=== PATIENT | male | born 1970 | race Caucasian/White ===

== ENCOUNTER 2019-08-27 12:54 | Outpatient (CLI) | payer OTHER, SELFPAY ==
--- NOTE | ~2019-08-27 | XR_ITS ---
EXAMINATION: XR chest 2V DATE: 08/27/2019 13:16 INDICATION: Chest wall pain TECHNIQUE: Frontal and lateral views of the chest are obtained COMPARISON: None available FINDINGS: The lungs are free of acute opacities. There is no pleural effusion or pneumothorax. The ca rdiomediastinal silhouette is normal. There is mild thoracic spondylosis. A BB is seen in the anterio r soft tissues projecting over the right upper quadrant. IMPRESSION: 1. No acute cardiopulmonary abnormality. Reviewed, dictated and finalized at location A.
== END 2019-08-27 12:55 | disposition home or self-care (01) ==
LOC: ANHIMG 13:04
PROVIDERS: PCP Internal Medicine; Visit Provider Internal Medicine
DX: R07.89 Other chest pain (principal)
CPT/HCPCS: 71046

== ENCOUNTER 2019-10-24 08:33 | Emergency (ER) | payer OTHER, SELFPAY ==
[2019-10-24] VITALS (20 sets, daily range): BP systolic 151–214; BP diastolic 90–107; PULSE 63; RESP 18; TEMP 36.4; O2SAT 93–99
--- NOTE | ~2019-10-24 | XR_ITS ---
XR chest 1V portable 10/24/2019 09:27 Indication: Shortness of breath and cough Procedure: AP portable chest Comparison: 08/27/2019 Findings: Heart size normal. Interval development of mild interstitial prominence with peribronchial wall thickening. No pleural effusion or pneumothorax. No acute osseous abnormality. Impression: 1: Mild bilateral perihilar interstitial prominence with peribronchial wall thickening. Differential diagnosis includes pulmonary vascular congestion and atypical pneumonia. Reviewed, dictated and finalized at location A. Impression: 1: Mild bilateral perihilar interstitial prominence with peribronchial wall thi ckening. Differential diagnosis includes pulmonary vascular congestion and atyp ical pneumonia.
--- NOTE | 2019-10-24 08:52 | ECG_ITS ---
Measurements Intervals [place] Rate: 60 P: 22 [place]: 140 QRS: 24 QRSD: 84 T: 78 QT: 394 QTc: 394 Interpretive Statements SINUS RHYTHM BORDERLINE ST-T WAVE ABNORMALITY- HIGH LATERAL LEADS BORDERLINE ECG Electronically Signed On 10-24-2019 9:25:48 CDT by Franco Stovall D.O.
--- NOTE | 2019-10-24 08:53 | ED.GENADULT ---
HPI - General Adult General Chief complaint: Shortness of Breath/Dyspnea Stated complaint: difficulty breathing when laying down Time Seen by Provider: 10/24/19 08:47 History of Present Illness HPI narrative: Patient is a 48 y/o male complaining of mild SOB since last night. He states that SOB is worsened by laying down. It becomes more severe when he lays down. He denies any leg swelling, chest pain or fever. He has chronic cough which he attributed to smoking. Related Data Allergies Allergy/AdvReac Type Severity Reaction Status Date / Time ampicillin Allergy Unknown Unknown Verified 10/24/19 08:44 Penicillins Allergy Unknown Unknown Verified 10/24/19 08:44 Review of Systems Constitutional: Constitutional: Denies chills, Denies fever(s), Denies headache(s) and Denies weakness Eyes: Eyes: Denies blurry vision ENT: Denies headache(s) and Denies neck pain Cardiovascular: Cardiovascular: Denies chest pain and Denies dyspnea Respiratory: Respiratory: Reports cough and Reports dyspnea Gastrointestinal: Gastrointestinal: Denies abdominal pain, Denies diarrhea, Denies nausea and Denies vomiting Genitourinary: Genitourinary: Denies hematuria and Denies dysuria Musculoskeletal: Musculoskeletal: Denies back pain and Denies neck pain Neurologic: Denies headache(s) and Denies weakness [facility] Family History Family History Father Family history of thyroid disease Mother Family history of diabetes mellitus in first degree relative Social History Social History Alcohol intake: current Gender identity (if verbalized by the patient): Male Exam Const: General: no acute distress and well developed Orientation/consciousness: oriented to person, oriented to place, oriented to time and patient oriented x3 HENMT: Head: normocephalic Ears: external ears normal General nose exam: Normal external nose present Eyes: General: appearance normal, both eyes and all related structures Conjunctivae: conjunctivae normal Neck: Neck: normal visual inspection and full ROM Chest: Chest palpation & inspection: normal inspection of the chest and no tenderness Resp: Effort & Inspection: normal respiratory effort Auscultation: clear to auscultation bilaterally Cardio: Rate: regular rate Rhythm: regular rhythm GI: GI Palp: No abdominal tenderness and Yes Soft to palpation Skin: General skin exam: normal color and turgor normal Neuro: General: oriented to person, oriented to place, oriented to time and patient oriented x3 Cognition (Neuro): normal cognition Extrem: General: normal to inspection, full ROM and no pedal edema Psych: Appearance: grossly normal Mental Status: mental status grossly normal Affect: normal affect Course Vital Signs Vital signs: Vital Signs Temperature 36.4 C 10/24/19 08:44 Pulse Rate 63 10/24/19 08:44 Respiratory Rate 18 10/24/19 08:44 Blood Pressure 193/107 H 10/24/19 08:44 Pulse Oximetry 98 10/24/19 08:44 Temperature 36.4 C 10/24/19 08:44 Pulse Rate 63 10/24/19 08:44 Respiratory Rate 18 10/24/19 08:44 Blood Pressure 173/100 H 10/24/19 11:31 Pulse Oximetry 98 10/24/19 11:32 Medical Decision Making Vital Signs Vital Signs: Vital Signs Temperature 36.4 C 10/24/19 08:44 Pulse Rate 63 10/24/19 08:44 Respiratory Rate 18 10/24/19 08:44 Blood Pressure 193/107 H 10/24/19 08:44 Pulse Oximetry 98 10/24/19 08:44 Temperature 36.4 C 10/24/19 08:44 Pulse Rate 63 10/24/19 08:44 Respiratory Rate 18 10/24/19 08:44 Blood Pressure 173/100 H 10/24/19 11:31 Pulse Oximetry 98 10/24/19 11:32 Lab Data Result diagrams: 10/24/19 09:01 10/24/19 09:01 Labs: Lab Results 10/24/19 10/24/19 10/24/19 Range/Units 09:01 09:01 09:01 WBC 9.5 (4.5-10.0) K/mm3 RBC 5.28 (4.6-6.20) M/mm3 Hgb 16.7 (14
[2019-10-24 09:07] LABS: Basophils Absolute Auto 0.1 K/mm3 (0.0-0.1); Basophils Percent Auto 0.5 % (0.2-1.2); Eosinophils Absolute Auto 0.3 K/mm3 (0-0.3); Eosinophils Percent Auto 2.6 % (0-4.4); Hematocrit 47.9 % (42.0-52.0); Hemoglobin 16.7 g/dL (14.0-18.0); Immature Granulocyte Absolute 0.03 K/mm3 (0.00-0.031); Immature Granulocyte Percent A 0.3 % (0-0.5); Lymphocytes Percent Auto 25.2 % (18.3-44.2); Mean Corpuscular HGB Conc 34.9 g/dl (32-36); Mean Corpuscular Hemoglobin 31.6 pg (26-34); Mean Corpuscular Volume 90.7 fl (80-100); Mean Platelet Volume 9.5 fl (7.4-10.4); Monocytes Absolute Auto 0.7 K/mm3 (0.1-0.6); Monocytes Percent Auto 7.6 % (2.6-8.5); Neutrophils Absolute Auto 6.1 K/mm3 (1.3-6.7); Neutrophils Percent Auto 63.8 % (45.5-73.1); Platelet Count Result 259 k/mm3 (150-375); Red Blood Count 5.28 M/mm3 (4.6-6.20); Red Cell Distribution Width 11.9 % (11.5-14.5); White Blood Count 9.5 K/mm3 (4.5-10.0)
[2019-10-24 09:23] LABS: D Dimer 0.27 ug/mL (<0.48)
[2019-10-24 09:29] LABS: Alanine Aminotransferase 44 U/L (4-50); Albumin Level 4.6 g/dL (3.5-5.1); Alkaline Phosphatase 68 U/L (38-126); Aspartate Amino Transferase 30 U/L (17-59); Bilirubin,Total 0.4 mg/dL (0.2-1.3); Blood Urea Nitrogen 14 mg/dL (9-20); Calcium 9.1 mg/dL (8.4-10.2); Carbon Dioxide 28 mmol/L (22-30); Chloride 104 mmol/L (98-107); Estimated CRCL calculation 91 ml/min; Estimated Glomerular Filt Rate > 60; Glucose 166 mg/dL (75-110); Potassium 4.3 mmol/L (3.4-5.0); Sodium 138 mmol/L (137-145)
[2019-10-24 09:41] LABS: NT Pro B Type Natriuretic Pept 55 PG/ML (5-100); Troponin I < 0.012 ng/mL (0.000-0.034)
[2019-10-24 12:59] LABS: Troponin I < 0.012 ng/mL (0.000-0.034)
[2019-10-25 11:01] LABS: SARS-CoV-2 RNA PCR Negative
== END 2019-10-24 13:32 | disposition home or self-care (01) ==
PROVIDERS: Emergency Provider Emergency Medicine; PCP Internal Medicine
DX: J18.9 Pneumonia, unspecified organism (principal); Z20.828 Contact with and (suspected) exposure to other viral communicable diseases; I10 Essential (primary) hypertension; R94.31 Abnormal electrocardiogram [ECG] [EKG]
CPT/HCPCS: 36415; 71045; 80053; 83880; 84484; 85025; 85380; 87635; 93005; 99284; C9803; U0003

== ENCOUNTER 2019-12-02 07:48 | Outpatient (CLI) | payer OTHER, SELFPAY ==
--- NOTE | 2019-12-06 00:07 | WPDPFTINT ---
PFT Interpretation PFT Interpretation: DOS: 12/02/2019 REQUESTING: Dr. Mcdaniel REASON FOR TESTING: shortness of breath PULMONARY FUNCTION TESTS Results are reproducible and reliable. Spirometry: FEV1 75%, mildly decreased. FVC 77%, mildly decreased. FEV1% is normal. No change with bronchodilator. Lung volumes: TLC 106%, normal. RV 153% consistent with moderate air trapping. Airway resistance increased 240%. Diffusion: DLCO 92%, normal. Flow volume loop: Flattening of the inspiratory limb, may represent a variable extrathoracic obstruction. IMPRESSION: Mild ventilatory impairment, moderate air trapping which is seen in obstructive conditions, and an abnormal inspiratory limb which may suggest a variable extrathoracic obstruction. If clinically indicated consider neck CT to further evaluate the abnormal flow volume loop with shortness of breath. . Katie Paige MD
== END 2019-12-02 07:49 | disposition home or self-care (01) ==
LOC: ANHPFT 07:49
PROVIDERS: PCP Internal Medicine; Visit Provider Internal Medicine
DX: R06.00 Dyspnea, unspecified (principal); R94.2 Abnormal results of pulmonary function studies
CPT/HCPCS: 94060; 94726; 94729

== ENCOUNTER 2023-05-06 14:02 | Inpatient (IN) | payer OTHER, SELFPAY ==
--- NOTE | ~2023-05-06 | XR_ITS ---
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 RESULT: Lines, tubes, and devices: Stable spherical radiopacity projecting over the right upper quadrant. Lungs and pleura: Diffuse mild reticulonodular opacities with mild cuffing. No focal consolidation, pleural effusion, or pneumothorax. Cardiomediastinal silhouette: Stable. Other: No acute osseous or upper abdominal finding. IMPRESSION: Pulmonary opacities may represent bronchiolitis, as can be seen with atypical infection, asthma, aspi ration, and small airways disease. Reviewed, dictated and finalized at location K. SAMPLER IMPRESSION: Pulmonary opacities may represent bronchiolitis, as can be seen with atypical i nfection, asthma, aspiration, and small airways disease.
--- NOTE | ~2023-05-06 | CT_ITS ---
EXAMINATION: CT brain wo con DATE: 05/06/2023 19:06 INDICATION: AMS, headache . TECHNIQUE: Computed tomography (CT) of the head was performed without intravenous contrast. The mA wa s adjusted according to patient size. Iterative reconstruction technique was employed. The dose-lengt h product was 605.33 mGy-cm. COMPARISON: None. FINDINGS: No acute intracranial hemorrhage or extra-axial fluid collection. No hydrocephalus, mass, or herniation. No acute ischemic infarct. Unremarkable dural venous sinus attenuation. No acute osseous abnormality. The aerated spaces are clear. Atherosclerotic intracranial calcification IMPRESSION: No acute intracranial process. Reviewed, dictated and finalized at location K. MOUNTER
[2023-05-06 14:17] VITALS: BP 177/98; PULSE 86; RESP 16; TEMP 36.7; O2SAT 98
--- NOTE | 2023-05-06 18:54 | ECG_ITS ---
Measurements Intervals [place] Rate: 69 P: 31 [place]: 146 QRS: 46 QRSD: 84 T: 60 QT: 392 QTc: 420 Interpretive Statements SINUS RHYTHM BASELINE ARTIFACT- I, III, AVL, AVF NORMAL ECG COMPARED TO ECG 10/24/2019 09:15:14 NO SIGNIFICANT CHANGES Electronically Signed On 05-07-2023 7:41:33 STILL OPERATOR GIN by Franco Stovall D.O.
--- NOTE | 2023-05-06 19:05 | ED.AMS ---
HPI - Altered Mental Status General Chief Complaint: Altered Mental Status <Josefa Liang PA-C - Last Filed: 05/07/23 02:16> Stated Complaint: altered mental status/vomiting <Josefa Liang PA-C - Last Filed: 05/07/23 02:16> Time Seen by Provider: 05/06/23 18:43 <Josefa Liang PA-C - Last Filed: 05/07/23 02:16> History of Present Illness HPI narrative: 52-year-old male reports with his at bedside for evaluation of altered mental status. patient's provides the following history. States that she was in lit living room at 3:00 a.m. this morning when the patient woke up walked to the living room. States he was slurring his words and walking with a staggering trunk like gait and appeared clammy and diaphoretic. She states she was concerned that he was hypoglycemic and gave him orange juice and put him back to bed. States she checked on him and he seems normal. The few hours later, she will house and advised her son to watch the patient. She states that the patient's son called her immediately and states that the patient was in the bathroom vomiting which prompted her to come home And bring the patient to the ED. she also states that he has been more confused throughout the day. States that the patient thought that today was Friday and was forgetting why he was to the emergency department and round. The patient's only stated complaint is that he feels unwell and has a headache. He states the headache started in the back of his head and has slowly come to the front of his head this was associated neck pain And shoulder pain. He denies fever, abdominal pain, chest pain or shortness of breath, vision changes, focal numbness or weakness, head injury or trauma, rash, dysuria or hematuria. he reports a smoker's cough that is unchanged from his baseline. States he smokes marijuana daily and uses alcohol socially. Denies other drug use. <MARISSA Tanner Last Filed: 05/07/23 02:16> Related Data Home Medications: Home Medications Medication Instructions Recorded Confirmed No Home Medications 05/07/23 05/07/23 <MARISSA Tanner Last Filed: 05/07/23 02:16> Allergies/Adverse Reactions: Allergies Allergy/AdvReac Type Severity Reaction Status Date / Time ampicillin Allergy Unknown Unknown Verified 10/24/19 08:44 Penicillins Allergy Unknown Unknown Verified 10/24/19 08:44 <Josefa Liang PA-C - Last Filed: 05/07/23 02:16> Review of Systems Review of Systems: CONSTITUTIONAL: Denies fever, chills, or sweats. EYES: Denies visual changes, redness, or discharge. ENT: Denies rhinorrhea, congestion, sore throat, or otalgia. CARDIOVASCULAR: Denies chest pain, palpitations, or edema. RESPIRATORY: See HPI GASTROINTESTINAL: Denies abdominal pain, nausea, vomiting, or diarrhea. GENITOURINARY: Denies dysuria or hematuria. SKIN: Denies rash or itching. MUSCULOSKELETAL: see HPI NEUROLOGIC: See HPI PSYCHIATRIC: Denies anxiety or depression. <Josefa Liang PA-C - Last Filed: 05/07/23 02:16> [facility] Past Medical History Medical History: Medical History Diverticulitis Tobacco use <Josefa Liang PA-C - Last Filed: 05/07/23 02:16> Family History Family History: Family History Father Family history of thyroid disease Mother Family history of diabetes mellitus in first degree relative <Josefa Liang PA-C - Last Filed: 05/07/23 02:16> Social History Social History: Social History Smoking packs per day: 2 Smoking cigarettes per day: 40.0 Years smoked: 35 Smoking pack-years: 70.00 Smoking status: Current every day smoker Tobacco type: cigarettes Second hand tobacco smoke exposure: Yes Alcohol intake: current Drinks per week: 2 Substance use: current Substance use type: marijuana Last use: 05/05/23
[2023-05-06 19:28] LABS: Hematocrit 52.8 % (42.0-52.0); Hemoglobin 18.5 g/dL (14.0-18.0); Mean Corpuscular Hemoglobin 31.5 pg (26-34); Mean Corpuscular Volume 89.8 fl (80-100); Platelet Count Result 223 k/mm3 (150-375); Red Blood Count 5.88 M/mm3 (4.6-6.20); White Blood Count 21.8 K/mm3 (4.5-10.0)
[2023-05-06] MEDS: ACETAMINOPHEN 500 MG TABLET 1000 MG PO (19:33)
[2023-05-06] MEDS: PROCHLORPERAZINE EDISYLATE 10 MG/2 ML VIAL IV PUSH (19:33)
[2023-05-06] MEDS: diphenhydrAMINE HCl INJ 50 MG/ML VIAL 25 MG IV PUSH (19:33)
[2023-05-06] MEDS: SODIUM CHLORIDE 0.9% IV 1,000 ML 999 ML IV CONT (19:33)
[2023-05-06 19:37] LABS: Platelet Estimate Adequate (Adequate)
[2023-05-06 19:38] LABS: Band Neutrophils Percent 3 % (0-6); Lymphocytes Absolute Manual 1.52 K/mm3 (1.1-4.5); Lymphocytes Percent Manual 7 % (18-44); Monocytes Absolute Manual 0.87 K/mm3 (0.1-0.90); Monocytes Percent Manual 4 % (3-9); Neutrophils Percent Manual 86 % (46-73); Total Cells Counted 100
[2023-05-06 19:39] LABS: Hypochromasia 1+ (NORMAL); Large Platelets Present; Schistocytes None Seen (NORMAL)
[2023-05-06 19:40] LABS: Lactic Acid Reflex 1.1 mmol/L (0.7-2.0)
[2023-05-06 19:41] LABS: Alanine Aminotransferase 30 U/L (6-50); Albumin Level 4.9 g/dL (3.5-5.1); Alkaline Phosphatase 55 U/L (38-126); Anion Gap 11 mmol/L (8-16); Aspartate Amino Transferase 33 U/L (17-59); Bilirubin,Total 0.9 mg/dL (0.2-1.3); Blood Urea Nitrogen 15 mg/dL (9-20); Calcium 9.8 mg/dL (8.4-10.2); Carbon Dioxide 23 mmol/L (22-30); Chloride 105 mmol/L (98-107); Creatine Kinase 443 U/L (55-170); Estimated CRCL calculation 76 ml/min; Estimated Glomerular Filt Rate > 60; Glucose 129 mg/dL (65-110); Potassium 4.1 mmol/L (3.4-5.0); Sodium 139 mmol/L (137-145)
[2023-05-06 19:45] LABS: Prothrombin Time 13.1 Seconds (11.1-14.7)
[2023-05-06 19:46] LABS: Partial Thromboplastin Time 28.3 SECONDS (22.3-36.8)
[2023-05-06 19:47] VITALS: BP 158/99; PULSE 84; RESP 16; O2SAT 97
[2023-05-06 20:00] LABS: Troponin I 0.089 ng/mL (0.000-0.034)
[2023-05-06 20:04] LABS: Influenza A QL RT-PCR Negative (Negative); Influenza B QL RT-PCR Negative (Negative); RSV RNA, RT-PCR Negative (Negative); SARS-CoV-2 RNA PCR Negative (Negative)
[2023-05-06 20:15] LABS: Acetaminophen < 10 ug/mL (10-30); Ethanol < 10 mg/dL (<10); Salicylate < 1.0 mg/dL (2-20)
[2023-05-06 20:36] LABS: CRP < 0.5 mg/dL (<1.0)
[2023-05-06 21:10] LABS: Erythrocyte Sedimentation Rate 1 mm/hr (0-20)
[2023-05-06 21:11] VITALS: BP 152/86; PULSE 63; RESP 15; O2SAT 96
[2023-05-06 21:20] LABS: Appearance Urine Clear (Clear); Bacteria Urine None Seen /hpf; Bilirubin Urine Negative (Negative); Blood Urine Negative (Negative); Color Urine Yellow (Yellow); Glucose Urine UA Negative (Negative); Ketones Urine Negative (Negative); Leukocyte Esterase Ur Negative LEU/UL (Negative); Nitrate Urine Negative (Negative); Non Pathogenic Casts 0-2; Protein Urine Trace mg/dL (Negative); RBC Urine 0-2 /hpf (0-2); Specific Grav Ur 1.013 (1.001-1.035); Squamous Epithelial Cell Urine None seen /hpf (Few); Urobilinogen Urine 0.2 mg/dL (<2.0); WBC Urine 0-5 /hpf; pH Urine 5.5 (5.0-9.0)
[2023-05-06 21:23] LABS: Add Urine Microscopic? YES
[2023-05-06 21:33] LABS: Amphetamine Screen Urine Negative (Negative); Barbiturate Screen Urine Negative (Negative); Benzodiazepines Screen Urine Negative (Negative); Cannabinoid Screen Urine Positive (Negative); Cocaine Screen Urine Negative (Negative); Methadone Screen Urine Negative (Negative); Opiate Screen Urine Negative (Negative); Phencyclidine Screen Urine Negative (Negative)
[2023-05-06] MEDS: cefTRIAXone 2 GM/NS 100 ML 2 GM/100 ML BAG IVPB (21:57)
[2023-05-06 23:12] LABS: Troponin I 0.094 ng/mL (0.000-0.034)
[2023-05-06 23:57] LABS: MRSA (PCR) NOT DETECTED (NOT DETECTE)
[2023-05-07] VITALS (14 sets, daily range): BP systolic 112–156; BP diastolic 73–90; PULSE 64–102; RESP 16–22; TEMP 36.3–36.9; O2SAT 94–98; BMI 25.4
--- NOTE | 2023-05-07 | ECHO_ITS ---
Patient Info Name: Bernard Loving Age: 52 years : 1970 Gender: Male Ht: 72 in Wt: 185 lbs BSA: 2.07 m2 HR: 73 bpm BP: 112 / 74 mmHg Heart Rhythm: Sinus Rhythm Technical Quality: Good Exam Date: 05/07/2023 12:06 PM Exam Location: Echo Lab Patient Status: Outpatient Admit Date: 05/07/2023 Staff Ordering Physician: Ricardo Landeros MD Mechanical Project Engineer: Ant Robert RDCS Attending Provider: Selvin Glover MD Referring Physician: Tigre DANGELO; Exam Type: CA echo doppler color flow Study Info Indications - systolic ejection murmur Complete two-dimensional, color flow and Doppler transthoracic echocardiogram is performed. Summary 1. Complete two-dimensional, color flow and Doppler transthoracic echocardiogram is performed. 2. Left ventricular chamber dimension is normal. 3. Left ventricular systolic function is normal, estimated at >70%. 4. There is mildly increased left ventricular wall thickness. 5. The left ventricular diastolic function is grade I diastolic dysfunction. 6. Right ventricular systolic function is normal. 7. There is severe aortic valve calcification. 8. The aortic valve is probable trileaflet, although not all leaflets well visualized, therefore, cannot rule out bicuspid.. 9. There is severe aortic valve stenosis with a peak velocity of 392 cm/s, mean gradient of 40 mmHg, and aortic valve area of 0.8 cm2. 10. There is mild mitral valve regurgitation. 11. There is mild tricuspid valve regurgitation. Left Ventricle Left ventricular chamber dimension is normal. Left ventricular systolic function is normal, estimated at >70%. There is mildly increased left ventricular wall thickness. The left ventricular diastolic function is grade I diastolic dysfunction. Right Ventricle Right ventricular chamber dimension is normal. Right ventricular systolic function is normal. Left Atria Left atrial chamber dimension is normal. Right Atria Right atrial chamber dimension is normal. Atrial Septum Intact interatrial septum visualized by color flow imaging. Aortic Valve The aortic valve is probable trileaflet, although not all leaflets well visualized, therefore, cannot rule out bicuspid.. There is severe aortic valve stenosis with a peak velocity of 392 cm/s, mean gradient of 40 mmHg, and aortic valve area of 0.8 cm2. There is no aortic valve regurgitation. There is severe aortic valve calcification. Pulmonic Valve The pulmonic valve is not well visualized. Mitral Valve There is mild mitral valve regurgitation. Tricuspid Valve There is mild tricuspid valve regurgitation. Pericardium/Pleural The pericardium appears epicardial fat pad. There is no pericardial effusion. Inferior Vena Cava Normal inferior vena cava with >50% collapse upon inspiration consistent with normal right atrial pressure, 3 mmHg. Aorta The aortic root size at the sinus of Valsalva is normal. Left Ventricular Outflow Tract Name Value Normal LVOT 2D LVOT Diameter 2.1 cm LVOT Doppler LVOT Peak Gradient 11 mmHg LVOT Mean Gradient 7 mmHg LVOT VTI 43 cm LVOT VTI/AV VTI Ratio 0.5 LVOT S
[2023-05-07] MEDS: VANCOMYCIN 1,250 MG/NS 250 ML 1,250 MG/250 ML BAG 166.67 MG IVPB (01:18)
[2023-05-07] MEDS: ASPIRIN 81 MG CHEWABLE TABLET 324 MG PO (01:22)
--- NOTE | 2023-05-07 02:51 | ADMGEN ---
This patient, Bernard Loving, was admitted to IMU Room 206-01. Patient/family oriented to hospital policies and general routines including ID bracelet, bed and alarms, visiting hours, pain management, procedures, bathroom and other care routines, personal items, smoking policy, room service/diet, and visiting hours. Information on how to activate the Rapid Response Team has been discussed. Patient/Family are encouraged to report perceived risks to care and to ask questions if they do not understand what they are told or what they should do.
[2023-05-07] MEDS: VANCOMYCIN 1,000 MG/NS 250 ML 1,000 MG/250 ML BAG 250 MG IVPB (03:00)
[2023-05-07 04:24] LABS: Estimated CRCL calculation 70 ml/min; Estimated Glomerular Filt Rate > 60
[2023-05-07] MEDS: SODIUM CHLORIDE 0.9% IV 1,000 ML 100 ML IV CONT ×2 (04:37→18:15)
[2023-05-07 04:45] LABS: Troponin I 0.063 ng/mL (0.000-0.034)
--- NOTE | 2023-05-07 06:15 | PM.IMHP ---
H&P: HPI History of Present Illness Date/Time: 05/07/23 06:15 Chief Complaint: Patient brought to the ER for evaluation due to altered mental status and headache Narrative: He is a pleasant gentleman who woke up yesterday morning and vaguely remembers talking to his . He went to sleep, and woke up again with intense posterior headaches. He was not feeling well. According to the , when he 1st woke up at around 3:00 a.m. he had slurred speech, stumbling like he was drunk, acting weirdly and asking repetitive questions. Patient was brought to the ER for evaluation and workup. Patient did not have any slurred speech or altered mental status but continued to feel headaches hence ER physician started him on aggressive antibiotics with intention to do a lumbar puncture. Patient responded well to hydration, Tylenol and workup in the ER and his headache went away hence lumbar puncture was held. He had minimally elevated troponins as well as elevated CPK level. He also appeared dry with hemoconcentration and started on IV fluids. Patient also had increased leukocytosis 21.8 consistent with possible atypical pneumonia as evidenced by chest XRay. He is a also a chronic smoker. Giving his multitude of symptoms, he is being placed under observation for medical management, IV hydration, IV antibiotics, cardiology evaluation and further workup. Review of Systems Review of Systems: 14 systems were reviewed with pertinent positives and negatives per HPI. Except as documented in the HPI/progress notes, all other systems were reviewed and are negative. All systems reviewed & are unremarkable except as noted in HPI and below PMFSH Family History Family History Father Family history of thyroid disease Mother Family history of diabetes mellitus in first degree relative Social History Social History Smoking packs per day: 2 Smoking cigarettes per day: 40.0 Years smoked: 35 Smoking pack-years: 70.00 Smoking status: Current every day smoker Tobacco type: cigarettes Second hand tobacco smoke exposure: Yes Alcohol intake: current Drinks per week: 2 Substance use: current Substance use type: marijuana Last use: 05/05/23 Do You Feel Safe in your Home?: Yes Lack of Transportation: No Lack of Food: Never True Current Housing: I Have Housing Concerned About Future Housing: No Difficulty Paying Gas/Electric Bills: No Difficulty Paying for Meds: No Currently Unemployed: No Education: Bachelor's Degree Difficulty w/ Childcare or Family Care: No Gender identity (if verbalized by the patient): Male Spiritual care concerns: No Meds Home Medications and Allergies Home Medications Medication Instructions Recorded Confirmed Type No Home Medications 05/07/23 05/07/23 History Allergies Allergy/AdvReac Type Severity Reaction Status Date / Time ampicillin Allergy Unknown Unknown Verified 10/24/19 08:44 Penicillins Allergy Unknown Unknown Verified 10/24/19 08:44 Vital Signs Vital Signs - 24 hr 05/06/23 14:17 05/06/23 19:47 05/06/23 21:11 Temperature 36.7 C Pulse Rate 86 84 63 Respiratory Rate 16 16 15 Blood Pressure 177/98 H 158/99 H 152/86 H Pulse Oximetry 98 97 96 Oxygen Delivery Room Air 05/07/23 01:35 05/07/23 02:50 05/07/23 04:00 Temperature 36.6 C Pulse Rate 74 75 75 Respiratory Rate 16 18 18 Blood Pressure 152/86 H 145/73 H Pulse Oximetry 94 96 96 Oxygen Delivery Room Air 05/07/23 04:00 05/07/23 06:00 Temperature Pulse Rate 78 80 Respiratory Rate Blood Pressure Pulse Oximetry Oxygen Delivery Exam Narrative: PHYSICAL EXAMINATION: Vital signs: Please see the chart General physical exam: Patient lying in bed, sleepy after rigorously workup in the ER, appears to be tired and fatigued Head/eyes: Atraumatic, EOMI, PERRLA ENT: Moist mu
[2023-05-07] MEDS: AZITHROMYCIN 500 MG/NS 250 ML 500 MG/250 ML BAG 250 MG IVPB (06:27)
[2023-05-07 07:46] LABS: Basophils Percent Auto 0.2 % (0.2-1.2); Eosinophils Percent Auto 0.1 % (0-4.4); Hematocrit 48.4 % (42.0-52.0); Hemoglobin 16.8 g/dL (14.0-18.0); Immature Granulocyte Absolute 0.11 K/mm3 (0.00-0.031); Immature Granulocyte Percent A 0.6 % (0-0.5); Lymphocytes Absolute Auto 1.17 K/mm3 (0.9-3.2); Mean Corpuscular HGB Conc 34.7 g/dl (32-36); Mean Corpuscular Hemoglobin 31.8 pg (26-34); Mean Corpuscular Volume 91.5 fl (80-100); Mean Platelet Volume 9.9 fl (7.4-10.4); Monocytes Absolute Auto 0.4 K/mm3 (0.1-0.6); Monocytes Percent Auto 2.1 % (2.6-8.5); Neutrophils Absolute Auto 17.8 K/mm3 (1.3-6.7); Platelet Count Result 228 k/mm3 (150-375); Red Blood Count 5.29 M/mm3 (4.6-6.20); Red Cell Distribution Width 12.2 % (11.5-14.5); White Blood Count 19.6 K/mm3 (4.5-10.0)
[2023-05-07 07:54] LABS: Anion Gap 11 mmol/L (8-16); Blood Urea Nitrogen 16 mg/dL (9-20); Calcium 9.3 mg/dL (8.4-10.2); Carbon Dioxide 23 mmol/L (22-30); Chloride 106 mmol/L (98-107); Creatine Kinase 355 U/L (55-170); Estimated CRCL calculation 65 ml/min; Estimated Glomerular Filt Rate 58; Glucose 160 mg/dL (65-110); Magnesium 2.3 mg/dL (1.6-2.3); Phosphorus 2.4 mg/dL (2.5-4.5); Sodium 140 mmol/L (137-145)
[2023-05-07] MEDS: NICOTINE (*PBKC) 21 MG PATCH 1 PATCH TRANSDERM (09:55)
[2023-05-07] MEDS: cefTRIAXone 2 GM/NS 100 ML 2 GM/100 ML BAG IVPB (09:55)
--- NOTE | 2023-05-07 11:11 | PM.CNCAR ---
Assessment and Plan Assessment and plan (1) Elevated troponin: Code(s): R79.89 - Other specified abnormal findings of blood chemistry Status: Acute Assessment and Plan: These do not represent acute plaque rupture. They also on a because of his headache. In fact his headache may be caused from severe high blood pressure upon presentation which may be also causing chest pain. Obviously underlying systemic illness/infection is most likely etiology. He does have risk factors for coronary disease and depending on above test results, likely will need ischemic workup at some point but again this does not represent acute plaque rupture in my opinion (2) Tobacco use: Code(s): Z72.0 - Tobacco use Status: Acute Assessment and Plan: Severe. Tobacco abuse counseled performed (3) Systolic murmur: Code(s): R01.1 - Cardiac murmur, unspecified Status: Acute Assessment and Plan: Concerning aortic murmur. No previous known history of a murmur. Will order 2D echocardiogram with Doppler for further evaluation. (4) Leukocytosis: Qualifiers: Leukocytosis type: unspecified Qualified Code(s): D72.829 - Elevated white blood cell count, unspecified Code(s): D72.829 - Elevated white blood cell count, unspecified Status: Acute Assessment and Plan: Uncertain cause in my opinion. Possibly pneumonia cannot exclude other etiologies to this point. Cultures pending (5) Altered mental status: Qualifiers: Altered mental status type: unspecified Qualified Code(s): R41.82 - Altered mental status, unspecified Code(s): R41.82 - Altered mental status, unspecified Status: Acute Assessment and Plan: Improved with antibiotics and fluids (6) Hypertension: Code(s): I10 - Essential (primary) hypertension Status: Acute Assessment and Plan: Patient had baseline hypertension at presentation. Continue follow his blood pressure while in hospital but likely he has untreated systemic hypertension and will start she losartan 25 mg daily. History of Present Illness History of Present Illness Consult date/time: 05/07/23 11:11 Requesting physician: Josefa Liang PA-C Consult reason: Other (Elevated troponin) Reason For Visit: AMS, Elevated Troponin, Atypical Pneumonia Narrative: Date of service 05/07/2023 Reason for consultation: Elevated troponin Requesting provider: Krystian Liang History: Patient is a 52-year-old male who has a history of tobacco use. He came to the hospital yesterday insistence of his because of altered mental status. Patient woke up at about 3:00 a.m. 2 days ago staggering as if he was drunk. He had slurred speech. He also had a headache that was frontal as well as occipital. His also said that he was not coherent. She gave him some orange juice and he laid back down in bed. She left and have her son common watch him yesterday morning. In our later her son called her stating that the patient had been up and vomiting. He had reportedly thrown up several times and still complaining of a headache. At this point, patient's came home and brought him to the hospital for further workup evaluation. Blood pressure was elevated 170 systolic. He was complaining of headache. Originally LP was going to be performed but this was deferred as the patient did respond to IV fluids, pain medications as well as antibiotics. In the process workup troponins were drawn which were minimally elevated. Cardiology consultation was therefore requested. Patient denies any chest pain, shortness of breath, syncope, presyncope, paroxysmal nocturnal dyspnea, orthopnea, edema or palpitations. He also denies any unusual cough fevers or chills Review of Systems Review of Systems: All systems reviewed & are unremarkable except as noted in HPI and below Constitutional: Constitutional: Denies body ache(s) Eyes: Eyes: D
--- NOTE | 2023-05-07 15:43 | PM.IMPN ---
Progress Note: A&P Assessment and Plan (1) Altered mental status: Qualifiers: Altered mental status type: unspecified Qualified Code(s): R41.82 - Altered mental status, unspecified Code(s): R41.82 - Altered mental status, unspecified Status: Acute Assessment and Plan: Patient presents with headache and altered mental status. There was concern for possible meningitis and patient was started on appropriate IV antiviral and IV antibiotics. Was also given a dose of dexamethasone. Patient was started on IV fluids. He had marked improvement so the LP was held. Headache has resolved. Mental status has returned to normal. Symptoms have resolved quickly in the emergency room. This could be a viral encephalitis that resolved quickly or possibly related to the elevated hemoglobin causing increased viscosity or from the elevated BP. Symptoms have resolved. Hemoglobin is now 16.8. BP better. Etiology of the elevated hemoglobin related to his untreated sleep apnea and his heavy tobacco use. Will check an [facility]nea[facility] tonight. He may benefit from home oxygen at night possibly. Narrow antibiotics. (2) Elevated troponin: Code(s): R79.89 - Other specified abnormal findings of blood chemistry Status: Acute Assessment and Plan: Troponin elevated on admission and climbed to 0.094 before trending down. EKG was normal. He has aortic murmur. Echocardiogram has been ordered. Cardiology is consulted and appreciate their input. Acute coronary syndrome unlikely. More likely troponin elevation related to the etiology that resulted in the elevated total CK. (3) Atypical pneumonia: Code(s): J18.9 - Pneumonia, unspecified organism Status: Acute Assessment and Plan: Chest x-ray shows pulmonary opacities consistent with bronchiolitis. Consider atypical infection given the elevated white count. Consider also small airway disease or asthma. No wheezing appreciated. Some of these imaging findings probably also related to his heavy tobacco use. Consider viral etiology which could explain the elevated total CK. Influenza, RSV and COVID PCR were negative. Will narrow antibiotics down. (4) Leukocytosis: Qualifiers: Leukocytosis type: unspecified Qualified Code(s): D72.829 - Elevated white blood cell count, unspecified Code(s): D72.829 - Elevated white blood cell count, unspecified Status: Acute Assessment and Plan: White count elevated 21.8K felt to be either stress response and/or related to the pneumonia. Left shift but no bandemia. White count better today. Continue to monitor. (5) Rhabdomyolysis: Code(s): M62.82 - Rhabdomyolysis Status: Acute Assessment and Plan: Total CK is mildly elevated at 443. Repeat level better. UA negative for blood. Rhabdomyolysis ruled out. (6) Nicotine dependence, cigarettes, with other nicotine-induced disorders: Code(s): F17.218 - Nicotine dependence, cigarettes, with other nicotine-induced disorders Status: Acute Assessment and Plan: Patient was educated about the benefits of smoking cessation. Nicotine patch ordered. Plan DVT prophylaxis -Lovenox Code status -full Subjective Date/time seen: 05/07/23 15:43 Interval history: 52yo male with untreated FRANKIE and heavy tobacco use here for headache and altered mental status. No further headaches. Denies chest pain or shortness of breath. No fever or cough. No symptoms when in a hot shower. Exam Narrative: AF 97.3 147/84 75 18 98% ra Gen - NARD Chest - mildly course with scattered expiratory rhonchi CV - RRR S1/S2. 2 of 6 systolic murmur heard loudest in the right upper sternal border radiated to the right carotid. Tele showing no significant dysrhythmias Abd - Soft, NT/ND, Positive BS Ext - No pedal edema Neuro - Alert and oriented. Nonfocal exam. Psych - Nml mood and affect Skin - Warm an
[2023-05-08] VITALS (13 sets, daily range): BP systolic 158–190; BP diastolic 89–97; PULSE 58–81; RESP 16–20; TEMP 36.4–37.2; O2SAT 94–98
[2023-05-08] MEDS: SODIUM CHLORIDE 0.9% IV 1,000 ML 100 ML IV CONT (03:15)
[2023-05-08 05:28] LABS: Basophils Percent Auto 0.2 % (0.2-1.2); Eosinophils Percent Auto 0.2 % (0-4.4); Hematocrit 43.8 % (42.0-52.0); Hemoglobin 14.6 g/dL (14.0-18.0); Immature Granulocyte Absolute 0.03 K/mm3 (0.00-0.031); Immature Granulocyte Percent A 0.2 % (0-0.5); Lymphocytes Absolute Auto 3.37 K/mm3 (0.9-3.2); Lymphocytes Percent Auto 27.5 % (18.3-44.2); Mean Corpuscular HGB Conc 33.3 g/dl (32-36); Mean Corpuscular Hemoglobin 31.2 pg (26-34); Mean Corpuscular Volume 93.6 fl (80-100); Mean Platelet Volume 9.3 fl (7.4-10.4); Monocytes Absolute Auto 1.1 K/mm3 (0.1-0.6); Monocytes Percent Auto 9.1 % (2.6-8.5); Neutrophils Absolute Auto 7.7 K/mm3 (1.3-6.7); Neutrophils Percent Auto 62.8 % (45.5-73.1); Platelet Count Result 159 k/mm3 (150-375); Red Blood Count 4.68 M/mm3 (4.6-6.20); Red Cell Distribution Width 12.3 % (11.5-14.5); White Blood Count 12.3 K/mm3 (4.5-10.0)
[2023-05-08 05:51] LABS: Anion Gap 7 mmol/L (8-16); Blood Urea Nitrogen 16 mg/dL (9-20); Calcium 8.5 mg/dL (8.4-10.2); Carbon Dioxide 24 mmol/L (22-30); Chloride 109 mmol/L (98-107); Creatine Kinase 181 U/L (55-170); Estimated CRCL calculation 70 ml/min; Estimated Glomerular Filt Rate > 60; Glucose 93 mg/dL (65-110); Potassium 3.9 mmol/L (3.4-5.0); Sodium 140 mmol/L (137-145)
[2023-05-08] MEDS: cefTRIAXone 2 GM/NS 100 ML 2 GM/100 ML BAG IVPB (08:57)
[2023-05-08] MEDS: ENOXAPARIN 40 MG/0.4 ML SYRINGE SUB-Q (08:57)
[2023-05-08] MEDS: NICOTINE (*PBKC) 21 MG PATCH 1 PATCH TRANSDERM (08:57)
[2023-05-08] MEDS: AZITHROMYCIN 250 MG TABLET PO (08:58)
--- NOTE | 2023-05-08 14:18 | PM.PNCARD ---
Progress Note: A&P Assessment and Plan (1) Elevated troponin: Code(s): R79.89 - Other specified abnormal findings of blood chemistry Status: Acute Assessment and Plan: These do not represent acute plaque rupture. Cannot rule out underlying CAD, so ischemic evaluation at some point would be recommended. (2) Tobacco use: Code(s): Z72.0 - Tobacco use Status: Acute Assessment and Plan: Severe. Tobacco abuse counseled performed (3) Systolic murmur: Code(s): R01.1 - Cardiac murmur, unspecified Status: Acute Assessment and Plan: Echo showed severe with peak velocity of 392 cm/s, mean gradient of 40 mmHg, and aortic valve area of 0.8 cm2. Recommend LÓPEZ tomorrow to further evaluate aortic valve (4) Leukocytosis: Qualifiers: Leukocytosis type: unspecified Qualified Code(s): D72.829 - Elevated white blood cell count, unspecified Code(s): D72.829 - Elevated white blood cell count, unspecified Status: Acute Assessment and Plan: Uncertain cause in my opinion. Possibly pneumonia cannot exclude other etiologies to this point. Blood cultures NGTD (5) Altered mental status: Qualifiers: Altered mental status type: unspecified Qualified Code(s): R41.82 - Altered mental status, unspecified Code(s): R41.82 - Altered mental status, unspecified Status: Acute Assessment and Plan: Improved with antibiotics and fluids (6) Hypertension: Code(s): I10 - Essential (primary) hypertension Status: Acute Assessment and Plan: Patient had baseline hypertension at presentation. Continue follow his blood pressure while in hospital but likely he has untreated systemic hypertension. Continue losartan 25 mg daily and may up titrate as needed Subjective Date/time seen: 05/08/23 14:18 Interval history: Cardiology follow up visit Patient is feeling well today and does not have any specific complaints. Denies chest pain, shortness of breath. Eager to go home. Review of Systems Review of Systems: All systems reviewed & are unremarkable except as noted in HPI and below Constitutional: Constitutional: Denies body ache(s) and Denies excessive sweating Eyes: Eyes: Denies blurry vision ENT: Reports Normal hearing present Cardiovascular: Cardiovascular: Denies chest pain Respiratory: Respiratory: Denies chest congestion Gastrointestinal: Gastrointestinal: Denies abdominal pain Genitourinary: Genitourinary: Denies hematuria Musculoskeletal: Musculoskeletal: Denies back pain Integumentary/Breasts: Skin/Breast: Denies erythema Neurologic: Reports Normal hearing present and Reports confusion Psychiatric: Psychiatric: Denies anxiety and Reports confusion Endocrine: Endocrine: Denies excessive sweating Hematologic/Lymphatic: Hematologic/Lymphatic: Denies easy bleeding Allergic/Immunologic: Allergic/Immunologic: Denies GI upset with certain foods Exam Narrative: Awake alert oriented appears older than stated age Const: General: comfortable, no acute distress and confusion Orientation/consciousness: confusion HENMT: Face/Nose/Sinus: Normal nares present Mouth: Yes moist mucous membranes Eyes: Sclera: sclerae normal EOM: EOMs intact bilaterally Neck: Neck: supple and no JVD Carotids: no bruits Chest: Other: No reproducible chest wall pain to palpation Resp: Effort & Inspection: normal respiratory effort Auscultation: clear to auscultation bilaterally Cardio: Rate: regular rate Rhythm: regular rhythm Heart sounds: Murmur heart sound present GI: Inspection: non-distended Auscultation: normal bowel sounds Skin: General skin exam: normal color Neuro: General: confusion Cranial nerves: Yes Normal hearing present Speech: normal speech Sensory Exam: normal sensation Extrem: General: normal to inspection Psych: Mental Status: mental status grossly normal Affect: no
--- NOTE | 2023-05-08 16:52 | PM.IMPN ---
Progress Note: A&P Assessment and Plan (1) Altered mental status: Qualifiers: Altered mental status type: unspecified Qualified Code(s): R41.82 - Altered mental status, unspecified Code(s): R41.82 - Altered mental status, unspecified Status: Acute Assessment and Plan: Patient presents with headache and altered mental status. There was concern for possible meningitis and patient was started on appropriate IV antiviral and IV antibiotics. Was also given a dose of dexamethasone. Patient was started on IV fluids. He had marked improvement so the LP was held. Headache has resolved. Mental status has returned to normal. Symptoms have resolved quickly in the emergency room. This could be a viral encephalitis that resolved quickly or possibly related to the elevated hemoglobin causing increased viscosity or from the elevated BP or dehydration or dehydration related to severe . BP higher today. Defer to cardilogy. Stop IV fluids Hemoglobin is now 14.6. Etiology of the elevated hemoglobin related to his untreated sleep apnea but [facility]nea[facility] essentially normal. Possibly from his heavy tobacco use; he was educated about benefits of smoking cessation. Resolved. Continue to monitor (2) Elevated troponin: Code(s): R79.89 - Other specified abnormal findings of blood chemistry Status: Acute Assessment and Plan: Troponin elevated on admission and climbed to 0.094 before trending down. EKG was normal. Cardiology is consulted and appreciate their input. Echo showing normal LV systolic function with mildly increased wall thickness, EF 70% and Grade I diastolic dysfunction. Also with severe . Acute coronary syndrome unlikely. More likely troponin elevation related to the etiology that resulted in the elevated total CK. Probably will need ischsemia evaluation at some point but can be deferred to outpatient setting. (3) Aortic stenosis: Code(s): I35.0 - Nonrheumatic aortic (valve) stenosis Status: Acute Assessment and Plan: Echo showing probably a trileaflet aortic valve but not well visualized. He has severe with peak velocity 392cm/s and SARKIS 0.8cm2. Be careful about reducing preload. Stop IV fluids and monitor. Cardiology following with plans for LÓPEZ in the morning. (4) Atypical pneumonia: Code(s): J18.9 - Pneumonia, unspecified organism Status: Acute Assessment and Plan: Chest x-ray shows pulmonary opacities consistent with bronchiolitis. Consider atypical infection given the elevated white count. Consider also small airway disease or asthma. No wheezing appreciated. Some of these imaging findings probably also related to his heavy tobacco use. Consider viral etiology which could explain the elevated total CK. Influenza, RSV and COVID PCR were negative. WBC elevated on admission at 21.8K and he received steroids. WBC trending down now Continue IV abx to complete a course. (5) Leukocytosis: Qualifiers: Leukocytosis type: unspecified Qualified Code(s): D72.829 - Elevated white blood cell count, unspecified Code(s): D72.829 - Elevated white blood cell count, unspecified Status: Acute Assessment and Plan: White count elevated 21.8K felt to be either stress response and/or related to the pneumonia. Left shift but no bandemia. Also received steroids so there was a lag before WBC truly improved. White count better today. Continue to monitor. (6) Rhabdomyolysis: Code(s): M62.82 - Rhabdomyolysis Status: Acute Assessment and Plan: Total CK is mildly elevated at 443. Repeat levels better. UA negative for blood. Rhabdomyolysis ruled out. (7) Nicotine dependence, cigarettes, with other nicotine-induced disorders: Code(s): F17.218 - Nicotine dependence, cigarettes, with other nicotine-induced disorders Status: Acute Assessment and Plan: Patient was educated about th
[2023-05-09] VITALS (19 sets, daily range): BP systolic 127–192; BP diastolic 84–112; PULSE 55–100; RESP 10–22; TEMP 36.6–37.3; O2SAT 95–98
[2023-05-09] MEDS: NICOTINE (*PBKC) 21 MG PATCH 1 PATCH TRANSDERM (08:44)
[2023-05-09] MEDS: cefTRIAXone 2 GM/NS 100 ML 2 GM/100 ML BAG IVPB (08:44)
[2023-05-09] MEDS: ENOXAPARIN 40 MG/0.4 ML SYRINGE SUB-Q (08:44)
[2023-05-09] MEDS: AZITHROMYCIN 250 MG TABLET PO (08:45)
--- NOTE | 2023-05-09 10:16 | SUR.OPER ---
MD arrived, speaking with patient about procedure, benefits and risks.
--- NOTE | 2023-05-09 10:21 | WPDMODSED ---
Moderate Sedation Note-Pt Data Patient Data Diagnosis: Aortic stenosis Present Complaint: aortic stenosis Procedure to be performed/Plan: 1. Multiplanar transesophageal echocardiogram with color-flow pulse-wave Doppler 2. Moderate sedation 3. Agitated saline study Allergies Allergy/AdvReac Type Severity Reaction Status Date / Time ampicillin Allergy Unknown Unknown Verified 10/24/19 08:44 Penicillins Allergy Unknown Unknown Verified 10/24/19 08:44 Home Medications Medication Instructions Recorded Confirmed Type No Home Medications 05/07/23 05/07/23 History Current Medications: Active Medications Acetaminophen (Acetaminophen 325 Mg Tablet) 650 mg PO Q4H PRN PRN Reason: Mild Pain (1-3) or Fever Al Hydrox/Mg Hydrox/Simethicone (Mag Hydrox/Al Hydrox/Simeth 30 Ml Udc) 30 ml PO QID PRN PRN Reason: Dyspepsia Azithromycin (Azithromycin 250 Mg Tablet) 250 mg PO DAILY [facility] Stop: 05/11/23 09:01 Last Admin: 05/09/23 08:45 Dose: 250 mg Enoxaparin Sodium (Enoxaparin 40 Mg/0.4 Ml Syringe) 40 mg SUB-Q DAILY [facility] Last Admin: 05/09/23 08:44 Dose: 40 mg Ceftriaxone Sodium (Rocephin 2 Gm/Ns 100 Ml) 2 gm in 100 mls @ 200 [facility]ls[facility] Last Admin: 05/09/23 08:44 Dose: 200 mls/hr Nicotine (Nicotine (*Pbkc) 21 Mg Patch) [facility] Last Admin: 05/09/23 08:44 Dose: 1 patch Perflutren Lipid Microsphere (Perflutren Lipid Microspheres 1.5 Ml Vial Diluted To 10 Ml Total Volume) 0 ml IV PUSH ONCE PRN; Protocol PRN Reason: adequate visualization Stop: 05/10/23 11:22 Sedation/Anesthesia: No previous sedation/anesthesia problems (including family history). [facility] Past Medical History Medical History Diverticulitis Tobacco use Family History Family History Father Family history of thyroid disease Mother Family history of diabetes mellitus in first degree relative Social History Social History Smoking packs per day: 2 Smoking cigarettes per day: 40.0 Years smoked: 35 Smoking pack-years: 70.00 Smoking status: Current every day smoker Tobacco type: cigarettes Second hand tobacco smoke exposure: Yes Alcohol intake: current Drinks per week: 2 Substance use: current Substance use type: marijuana Last use: 05/05/23 Do You Feel Safe in your Home?: Yes Lack of Transportation: No Lack of Food: Never True Current Housing: I Have Housing Concerned About Future Housing: No Difficulty Paying Gas/Electric Bills: No Difficulty Paying for Meds: No Currently Unemployed: No Education: Bachelor's Degree Difficulty w/ Childcare or Family Care: No Gender identity (if verbalized by the patient): Male Spiritual care concerns: No Mod Sed Physical Exam Physical Exam Pre Procedural Exam: Normal: Appearance, Eyes, Ears, Nose, Neck, Throat, Airway, Lungs, Heart Size, Heart Rate, Heart Rhythm, Neuro Exam, Extremities and Skin Hours since solid foods: 12 Hours since liquid intake: 12 Mallampati Classification: class II Internal Medicine - PN: Obj Da Vital Signs Vital Signs: Vital Signs - 24 hr 05/08/23 12:00 05/08/23 12:00 05/08/23 12:00 Temperature 36.6 C Pulse Rate 68 64 64 Respiratory Rate 16 16 Blood Pressure 168/90 H Pulse Oximetry 96 96 Oxygen Delivery Room Air 05/08/23 14:00 05/08/23 16:00 05/08/23 16:00 Temperature 36.7 C Pulse Rate 78 58 L 62 Respiratory Rate 16 Blood Pressure 189/89 H Pulse Oximetry 98 Oxygen Delivery 05/08/23 16:00 05/08/23 18:00 05/08/23 20:00 Temperature 37.2 C Pulse Rate 62 67 61 Respiratory Rate 16 18 Blood Pressure 190/89 H Pulse Oximetry 98 96 Oxygen Delivery Room Air 05/08/23 20:00 05/08/23 20:00 05/08/23 22:00 Temperature Pulse Rate 66 66 62 Respiratory Rate 18 Blood Pressure Pulse Oximetry 96 Oxygen Delivery Room Air 05/09/23
--- NOTE | 2023-05-09 10:51 | P.PCNTEE_ITS ---
LÓPEZ TransEsophageal Echocardiogram Date of procedure: 05/09/23 Procedure Type: 1. Multiplanar transesophageal echocardiography with color flow and pulse wave Doppler 2. Moderate sedation 3. Agitated saline study Diagnosis: aortic stenosis Indications: aortic stenosis Image Quality: good Findings: after discussing the risks, benefits alternatives of the procedure patient agreeable via verbal and written informed consent. Risks discussed included esophageal rupture perforation, need for emergency surgery, , sore throat, bleeding, pain, infection. After establishing continuous teletypesetter monitor, pulse oxygenation and serial blood pressure assessments, a time-out was taken procedure was initiated. Procedure start time 10:26 a.m. Procedure stop time 10:47 a.m. Medications used a total of 4 mg of Versed and 75 mcg of fentanyl given in divided dosages as well as Hurricaine spray to the hypopharynx x2 for local anesthetic. Medications were administered patient was monitored by Laxmi Pereyra RN Complications: None Blood loss: None Findings: Normal left ventricular size. Hyperdynamic function with ejection fraction greater than 75%. Normal right ventricular size and function. Normal right atrial size. Normal left atrial size. Mitral valve is normal without significant mitral regurgitation. Tricuspid valve is normal without significant tricuspid regurgitation. Pulmonic valve is normal without significant pulmonic insufficiency. The aortic valve is abnormal in appearance with calcifications. It is probably trileaflet. Due to shadowing, exact out line of the valve is difficult but yet the worst pulmonary to her did valve area was 1.8 centimeter squared and this was with several measurements. There is at least moderate aortic insufficiency. No pericardial effusion. Atrial septum is intact without agitated saline or color flow evidence of shunting. Left atrial appendage is normal velocities pulsed wave of greater than 80 centimeters/second. Aortic root measures 3.2 cm. Conclusions: 1. Hyperdynamic left ventricular function 2. Abnormal appearance of the aortic valve. It is likely trileaflet with calcifications noted. appears to have mild aortic stenosis with moderate aortic insufficiency. will need outpatient monitoring and follow-up echocardiograms as an outpatient as well as consideration of advanced imaging such as a cardiac MRI or cardiac CT. 3. Intact atrial septum with negative agitated saline study 4. moderate sedation Patient also has poor dentition and it is advised that he have extractions as needed and dental evaluation especially given the findings of his aortic valve.
--- NOTE | 2023-05-09 14:52 | PM.DS ---
DS: Admitting Diagnosis Discharge Date 05/09/23 Admitting Diagnosis Headache and altered mental status. DS: Discharge Diagnosis Discharge Diagnosis (1) Altered mental status: Qualifiers: Altered mental status type: unspecified Qualified Code(s): R41.82 - Altered mental status, unspecified Code(s): R41.82 - Altered mental status, unspecified Status: Acute (2) Elevated troponin: Code(s): R79.89 - Other specified abnormal findings of blood chemistry Status: Acute (3) Aortic insufficiency with aortic stenosis: Code(s): I35.2 - Nonrheumatic aortic (valve) stenosis with insufficiency Status: Acute (4) Atypical pneumonia: Code(s): J18.9 - Pneumonia, unspecified organism Status: Acute (5) Leukocytosis: Qualifiers: Leukocytosis type: unspecified Qualified Code(s): D72.829 - Elevated white blood cell count, unspecified Code(s): D72.829 - Elevated white blood cell count, unspecified Status: Acute (6) Rhabdomyolysis: Code(s): M62.82 - Rhabdomyolysis Status: Acute (7) Nicotine dependence, cigarettes, with other nicotine-induced disorders: Code(s): F17.218 - Nicotine dependence, cigarettes, with other nicotine-induced disorders Status: Acute DS: Summary Hospital Course Reason for hospitalization: 52yo male with untreated FRANKIE and heavy tobacco use here for headache and altered mental status. Please see H&P for details. Hospital Course: Patient presents with headache and altered mental status.? There was concern for possible meningitis and patient was started on appropriate IV antiviral and IV antibiotics.? Was also given a dose of dexamethasone.? Patient was started on IV fluids.? He had marked improvement so the LP was held.? Headache resolved and mental status returned to normal.? Symptoms improved quickly in the emergency room.? This could be a viral encephalitis that resolved quickly and/or related to the elevated hemoglobin causing increased viscosity and/or from elevated BP or dehydration or dehydration related to valvular disease. Hemoglobin normalized.? Etiology of the elevated hemoglobin related to heavy tobacco use; he was educated about benefits of smoking cessation.?ApneaLink essentially normal here. He also had elevated troponin on admission and climbed to 0.094 before trending down.? EKG was normal. Cardiology is consulted and appreciate their input. Losartan added. Echo showing normal LV systolic function with mildly increased wall thickness, EF 70% and Grade I diastolic dysfunction. Echo also showing probably a trileaflet aortic valve but not well visualized. He has severe with peak velocity 392cm/s and SARKIS 0.8cm2. This prompted a LÓPEZ which showed: 1. Hyperdynamic left ventricular function 2. Abnormal appearance of the aortic valve.? It is likely trileaflet with calcifications noted. ?Appears to have mild aortic stenosis with moderate aortic insufficiency. ? will need outpatient monitoring and follow-up echocardiograms as an outpatient as well as consideration of advanced imaging such as a cardiac MRI or? cardiac CT. 3. Intact atrial septum with negative agitated saline study Patient also has poor dentition and he was advised that he may need extractions as needed and dental evaluation especially given the findings of his aortic valve. Chest x-ray on admission shows pulmonary opacities consistent with bronchiolitis.? Consider atypical infection given the elevated white count.? Consider also small airway disease or asthma.? No wheezing appreciated.? Some of these imaging findings probably also related to his heavy tobacco use. Influenza, RSV and COVID PCR were negative. Consider other viral etiology which could explain the mildly elevated total CK. WBC elevated on admission at 21.8K and he received steroids. He was started on IV antibiotics. WBC trending down now. He overall did well and was able to be discharged home on
== END 2023-05-09 16:21 | disposition home or self-care (01) | DRG 641 ==
LOC: ANHED 05-07 00:41 → ANHIMU 05-07 02:09
PROVIDERS: Internal Medicine Cardiovascular Disease; Admitting Provider Family Medicine; Emergency Provider Physician Assistant; PCP Internal Medicine; Visit Provider Internal Medicine
PROC: B24BZZ4 Ultrasonography of Heart with Aorta, Transesophageal (ICD-10-PCS; CPT 93312; principal; 2023-05-09 09:00)
DX: E86.0 Dehydration (principal); M62.82 Rhabdomyolysis; J21.9 Acute bronchiolitis, unspecified; R41.82 Altered mental status, unspecified; R51.9 Headache, unspecified; B34.9 Viral infection, unspecified; R79.89 Other specified abnormal findings of blood chemistry; I35.2 Nonrheumatic aortic (valve) stenosis with insufficiency; R01.1 Cardiac murmur, unspecified; F17.210 Nicotine dependence, cigarettes, uncomplicated; G47.33 Obstructive sleep apnea (adult) (pediatric); Z20.822 Contact with and (suspected) exposure to COVID-19; I10 Essential (primary) hypertension; K08.9 Disorder of teeth and supporting structures, unspecified
CPT/HCPCS: 36415; 70450; 71046; 80048; 80053; 80307; 81001; 82550; 82565; 83605; 83735; 84100; 84443; 84484; 85025; 85610; 85652; 85730; 86140; 87040; 87637; 87641; 93005; 93306; 93312; 93320; 93325; 94762; 96361; 96365; 96367; 96372; 96374; 96375; 96376; 99285; A9270; G0378; J0133; J0456; J0696; J0780; J1100; J1200; J1650; J2250; J3010; J3370; J7030; J7040; J7060

== ENCOUNTER 2023-06-26 06:15 | Inpatient (IN) | payer OTHER, SELFPAY ==
[2023-06-26] VITALS (38 sets, daily range): BP systolic 97–210; BP diastolic 67–120; PULSE 78–162; RESP 13–25; TEMP 36.6–37.6; O2SAT 86–99; BMI 25.9
--- NOTE | ~2023-06-26 | XR_ITS ---
EXAMINATION: XR lumbar puncture diagnostic DATE: 06/26/2023 14:01 INDICATION: Seizures. Altered mental status. TECHNIQUE: The procedure including the risks and benefits was discussed with the patient's . Risk s discussed included spinal headache, cerebrospinal fluid leak, bleeding, and infection. The patient' s understood the risks and agreed to proceed. A timeout was performed to verify the patient's name, date of , and procedure to be performed. The skin overlying the L3-L4 level was prepped and draped in usual sterile fashion. Subcutaneous 1% lidocaine was used for local anesthesia. A 22 gauge spinal needle was advanced under fluoroscopic guidance. The needle was removed and the entry si te was cleaned and dressed. There were no immediate complications. No images recorded as the patient was moving constantly during the procedure and the hat binder was moved resulting in purging of the kiran ry prior to storage of the image. The amount of fluoroscopy time used during this procedure was 0.2 m inutes. Following the procedure the patient's nurses accompanied the patient back to the ICU. FINDINGS: Real-time fluoroscopy demonstrates the needle at the L4 level. Due to the motion of the pat ient and accurate opening pressure was unable to be obtained. The pressure was estimated at approxima tely 20-25 cm water. (Normal range is variably defined as 6-20 cm water and up to 25 cm water in obes e patients. Pressure >25 cm water is one of the modified Dandy criteria for idiopathic intracranial h ypertension). There is a slight reddish orange-tinged to the initial fluid which quickly cleared. 7 mL of clear, colorless fluid was collected in 4 tubes. IMPRESSION: 1. Successful fluoro-guided lumbar puncture. Reviewed, dictated and finalized at location A. H TENDER
--- NOTE | ~2023-06-26 | CT_ITS ---
Non-contrast Head CT History: Seizure COMPARISON: 05/06/2023 Technique: Axial non-contrast imaging of the brain was performed. Dose reduction technique was used on this scan by utilizing automated exposure control and iterative reconstruction technique. The dose -length product (DLP) was 908.00 mGy-cm. Findings: There is no evidence of intracranial hemorrhage, mass lesion, or acute infarct. Brain par enchyma appears normal. The ventricles and subarachnoid spaces are normal in size. The calvarium ap pears normal. The visualized paranasal sinuses and mastoid air cells are clear. Impression: No significant abnormality seen. Reviewed, dictated and finalized at [facility]. WARE ARCHITECT Impression: No significant abnormality seen.
--- NOTE | ~2023-06-26 | XR_ITS ---
Portable chest x-ray Comparison: 05/06/2023 Clinical History: Chest pain Findings: Lungs are clear, without focal consolidation or pleural effusion. Cardiomediastinal silho uette is stable. Bones and soft tissues are unremarkable. Impression: Normal chest. Reviewed, dictated and finalized at [facility]. FURNACE TENDER Impression: Normal chest.
--- NOTE | ~2023-06-26 | CT_ITS ---
EXAMINATION: CTA brain carotid DATE: 06/30/2023 18:55 INDICATION: Altered mental status TECHNIQUE: Computed tomographic angiography (CTA) of the head was performed without and with 100 mL O mnipaque-350 intravenous contrast. CTA of the neck was performed with intravenous contrast. The dose- length product was 1764.33 mGy-cm. Maximum intensity projection and volume rendered 3D-reconstruction s were created by the technologist on a separate workstation. COMPARISON: CT brain 06/26/2023. FINDINGS: CT BRAIN: No acute large vessel infarct, intracranial hemorrhage, mass, or hydrocephalus. CTA HEAD: No large vessel occlusion, aneurysm, high flow vascular malformation, nidus or extravasation. Flow to the right PROPERTY INSURANCE INSPECTOR predominantly via the right posterior communication artery. Hypoplastic right P1 segme nt CTA NECK: Aortic arch and proximal great vessels: Normal arch anatomy. No plaque. Right common carotid, carotid bifurcation, and internal carotid artery: Calcified and noncalcified pl aque at the right bifurcation.There is 0% stenosis of the proximal right internal carotid artery rela tive to normal distal artery lumen diameter (NASCET criteria). Left common carotid, carotid bifurcation, and internal carotid artery: Calcified and noncalcified abundio que at the left bifurcation.There is 31% stenosis of the proximal left internal carotid artery relati ve to normal distal artery lumen diameter (NASCET criteria). Vertebral arteries: No significant plaque or stenosis. 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 Multiple dental implants. Scattered small pleural blebs. IMPRESSION: No acute intracranial process. No large vessel intracranial occlusion, high-grade intracranial stenosis, or aneurysm. No carotid or vertebral artery occlusion, dissection, or significant stenosis. Reviewed, dictated and finalized at location K. P CUTTING MACHINE OPERATOR IMPRESSION: No acute intracranial process. No large vessel intracranial occlusion, high-grade intracranial stenosis, or an eurysm. No carotid or vertebral artery occlusion, dissection, or significant stenosis.
--- NOTE | 2023-06-26 06:20 | ED.ARRPALP ---
HPI - Arrhythmia/Palpitations General Chief Complaint: Neuro Symptoms/Deficit <Liliana Guo MD - Last Filed: 06/26/23 08:55> Stated Complaint: clammy, palpitations, sob, headache <Liliana Guo MD - Last Filed: 06/26/23 08:55> Time Seen by Provider: 06/26/23 06:19 <Liliana Guo MD - Last Filed: 06/26/23 08:55> Source: patient and family (/partner) <Liliana Guo MD - Last Filed: 06/26/23 08:55> Mode of arrival: ambulatory <Liliana Guo MD - Last Filed: 06/26/23 08:55> Limitations: no limitations <Liliana Guo MD - Last Filed: 06/26/23 08:55> History of Present Illness HPI narrative: Patient presents with complaint of palpitations and a headache as well as shortness of breath. This occurred while patient was asleep. Some of these symptoms occurred before, on 05/06/23. He has some blood at the left ear, bleeding well controlled and superficial. This is attributed to being scratched by a cat though patient doesn't recall this. His steel post installer is Dr Landeros. No cough, fever, or sick contacts. Denies chest pain. <Liliana Guo MD - Last Filed: 06/26/23 08:55> Related Data Allergies/Adverse Reactions: Allergies Allergy/AdvReac Type Severity Reaction Status Date / Time ampicillin Allergy Unknown Unknown Verified 10/24/19 08:44 Penicillins Allergy Unknown Unknown Verified 10/24/19 08:44 <Liliana Guo MD - Last Filed: 06/26/23 08:55> [facility] Past Medical History Medical History: Medical History Diverticulitis Tobacco use <Liliana Guo MD - Last Filed: 06/26/23 08:55> Family History Family History: Family History Father Family history of thyroid disease Mother Family history of diabetes mellitus in first degree relative <Liliana Guo MD - Last Filed: 06/26/23 08:55> Social History Social History: Social History (Updated 06/26/23 @ 08:40 by Liliana Guo MD) Smoking packs per day: 2 Smoking cigarettes per day: 40.0 Years smoked: 35 Smoking pack-years: 70.00 Smoking status: Current every day smoker Tobacco type: cigarettes Second hand tobacco smoke exposure: Yes Smoking end date: 05/06/23 Alcohol intake: current Drinks per week: 2 Alcohol use details: Drinks shots on Tuesdays while playing darts Substance use: current Substance use type: marijuana Do You Feel Safe in your Home?: Yes Lack of Transportation: No Lack of Food: Never True Current Housing: I Have Housing Concerned About Future Housing: No Difficulty Paying Gas/Electric Bills: No Difficulty Paying for Meds: No Currently Unemployed: No Education: Bachelor's Degree Difficulty w/ Childcare or Family Care: No Living arrangements: with family Additional living arrangements comments: Gender identity (if verbalized by the patient): Male Spiritual care concerns: No <Liliana Guo MD - Last Filed: 06/26/23 08:55> Exam Narrative: GENERAL: well-nourished, and in no acute distress. Initially slightly ashen appearance but conversing appropriately. HEAD: Normocephalic, atraumatic. EYES: Non injected, non icteric. Pupils equally reactive and round bilaterally. ENT: Nares clear, no rhinorrhea or epistaxis. Scant dried blood at external ear, no active bleeding. Gross auditory acuity intact. NECK: Supple. CHEST: Clear to auscultation. No respiratory distress. HEART: Regular rate and rhythm. Normal S1 and S2. ABDOMEN: Soft, nondistended. EXTREMITIES: Normal range of motion. No edema. SKIN: Warm, dry, no rash. Possible scattered pettichae across chest but not present on bilateral lower extremities. NEURO: No focal deficits. Alert and oriented x3. PSYCH: Normal mood and affect. <Liliana Guo MD - Last Filed: 06/26/23 08:55> Course Course Emergency Course: Patient had a sei
--- NOTE | 2023-06-26 06:21 | ECG_ITS ---
Measurements Intervals [place] Rate: 86 P: 40 KS: 157 QRS: 64 QRSD: 83 T: 61 QT: 389 QTc: 467 Interpretive Statements SINUS RHYTHM NONSPECIFIC T-WAVE ABNORMALITY BORDERLINE ECG COMPARED TO ECG 05/06/2023 19:24:25 T-WAVE ABNORMALITY NOW PRESENT Electronically Signed On 06-26-2023 12:27:01 H[employer]ICULTURE/FLORICULTURE TEACHER by Kevin Millan M.D.
[2023-06-26 06:30] LABS: Basophils Absolute Auto 0.1 K/mm3 (0.0-0.1); Basophils Percent Auto 0.5 % (0.2-1.2); Eosinophils Absolute Auto 0.3 K/mm3 (0-0.3); Eosinophils Percent Auto 2.2 % (0-4.4); Hematocrit 46.8 % (42.0-52.0); Hemoglobin 15.8 g/dL (14.0-18.0); Immature Granulocyte Absolute 0.11 K/mm3 (0.00-0.031); Immature Granulocyte Percent A 0.7 % (0-0.5); Lymphocytes Absolute Auto 2.67 K/mm3 (0.9-3.2); Mean Corpuscular HGB Conc 33.8 g/dl (32-36); Mean Corpuscular Hemoglobin 31.3 pg (26-34); Mean Corpuscular Volume 92.7 fl (80-100); Mean Platelet Volume 9.2 fl (7.4-10.4); Monocytes Absolute Auto 0.9 K/mm3 (0.1-0.6); Monocytes Percent Auto 5.7 % (2.6-8.5); Neutrophils Absolute Auto 10.8 K/mm3 (1.3-6.7); Neutrophils Percent Auto 72.9 % (45.5-73.1); Platelet Count Result 275 k/mm3 (150-375); Red Blood Count 5.05 M/mm3 (4.6-6.20); Red Cell Distribution Width 12.5 % (11.5-14.5); White Blood Count 14.8 K/mm3 (4.5-10.0)
[2023-06-26] MEDS: ASPIRIN 81 MG CHEWABLE TABLET 324 MG PO (06:33)
[2023-06-26 06:40] LABS: Alanine Aminotransferase 33 U/L (6-50); Albumin Level 4.7 g/dL (3.5-5.1); Alkaline Phosphatase 59 U/L (38-126); Anion Gap 11 mmol/L (8-16); Aspartate Amino Transferase 30 U/L (17-59); Bilirubin,Total 0.6 mg/dL (0.2-1.3); Blood Urea Nitrogen 17 mg/dL (9-20); Calcium 9.2 mg/dL (8.4-10.2); Carbon Dioxide 18 mmol/L (22-30); Chloride 106 mmol/L (98-107); Estimated CRCL calculation 70 ml/min; Estimated Glomerular Filt Rate > 60; Glucose 244 mg/dL (65-110); Lipase 837 U/L (23-300); Potassium 4.4 mmol/L (3.4-5.0); Sodium 135 mmol/L (137-145)
[2023-06-26 06:41] LABS: INR 0.9; Prothrombin Time 13.1 Seconds (11.1-14.7)
[2023-06-26] MEDS: ONDANSETRON INJ 4 MG/2 ML VIAL IV PUSH (06:49)
[2023-06-26 06:52] LABS: Troponin I < 0.012 ng/mL (0.000-0.034)
[2023-06-26 06:55] LABS: Magnesium 2.4 mg/dL (1.6-2.3)
[2023-06-26 07:07] LABS: Influenza A QL RT-PCR Negative (Negative); Influenza B QL RT-PCR Negative (Negative); RSV RNA, RT-PCR Negative (Negative); SARS-CoV-2 RNA PCR Negative (Negative)
[2023-06-26] MEDS: LORazepam INJ (*CRX) 2 MG/ML VIAL IV PUSH ×3 (07:08→14:21)
--- NOTE | 2023-06-26 07:09 | PC.NURSE ---
While at the nurses station, Dr. Phillips advises that this patient is seizing in his room. Began at 0700 and ending at 0703 after 2 mg of Ativan administered at 0704 with successful cessation of seizure. EDP at bedside provided suctioning due to increased secretions. While giving bedside report to daysinft RN, Patient begins a combative postictal state. EDP at bedside to aid in restraints requesting more pharmacological restraints- 2 mg Ativan VORB administered at 0719 without relief. VORB for 5 mg Haldol administered IM due to accidental removal of IV. VORB for physical restraints at 0730 for hard restraints due to combative behavior of patient. EDP at bedside.
[2023-06-26] MEDS: HALOPERIDOL LACTATE 5 MG/ML VIAL (07:19)
[2023-06-26] MEDS: MIDAZOLAM HCL (*CRX) 2 MG/2 ML VIAL (07:30)
[2023-06-26] MEDS: SODIUM CHLORIDE 0.9% IV 1,000 ML 999 ML IV CONT (07:45)
[2023-06-26 08:06] LABS: Ethanol < 10 mg/dL (<10)
[2023-06-26] MEDS: MIDAZOLAM HCL (*CRX) 2 MG/2 ML VIAL 6 MG (08:12)
[2023-06-26 08:20] LABS: Amphetamine Screen Urine Negative (Negative); Barbiturate Screen Urine Negative (Negative); Benzodiazepines Screen Urine Negative (Negative); Cannabinoid Screen Urine Positive (Negative); Cocaine Screen Urine Negative (Negative); Methadone Screen Urine Negative (Negative); Opiate Screen Urine Negative (Negative); Phencyclidine Screen Urine Negative (Negative)
--- NOTE | 2023-06-26 08:29 | PC.NURSE ---
PT CONTINUES TO THRASH ABOUT DESPITE MULTIPLE MEDS AND LOCKABLE RESTRAINTS. CONTINUE TO MONITOR PT CLOSELY AND AWAIT CT SCAN WHEN CALMER AND ABLE TO STAY STILL
[2023-06-26] MEDS: levETIRAcetam 1000MG/NACL100ML 1,000 MG/100 ML BAG 400 MG IVPB ×3 (09:13→20:00)
--- NOTE | 2023-06-26 09:54 | ECG_ITS ---
Measurements Intervals [place] Rate: 155 P: 50 VT: 101 QRS: 74 QRSD: 90 T: 67 QT: 320 QTc: 514 Interpretive Statements SINUS TACHYCARDIA WITH SHORT VT INTERVAL, POSSIBLE ATRIAL FLUTTER NONSPECIFIC ST & T-WAVE ABNORMALITY COMPARED TO ECG 06/26/2023 06:23:33 SINUS TACHYCARDIA WITH SHORT VT INTERVAL, POSSIBLE ATRIAL FLUTTER NOW PRESENT Electronically Signed On 06-26-2023 13:26:23 [facility] by Irais Tilley M.D.
[2023-06-26 10:21] LABS: Troponin I 0.133 ng/mL (0.000-0.034)
--- NOTE | 2023-06-26 10:56 | PC.NURSE ---
This patient, Bernard Loving, was admitted to Intensive Care Unit-2. Patient/family oriented to hospital policies and general routines including ID bracelet, bed and alarms, visiting hours, pain management, procedures, bathroom and other care routines, personal items, smoking policy, room service/diet, and visiting hours. Information on how to activate the Rapid Response Team has been discussed. Patient/Family are encouraged to report perceived risks to care and to ask questions if they do not understand what they are told or what they should do.
[2023-06-26] MEDS: SODIUM BICARBONATE 8.4% 50 MEQ/50 ML SYRINGE IV PUSH (11:18)
[2023-06-26] MEDS: dexmedeTOMIDine 400 MCG/100 ML 400 MCG/100 ML BAG IV CONT (11:18)
[2023-06-26] MEDS: SODIUM CHLORIDE 0.9% IV 1,000 ML 100 ML IV CONT (11:18)
--- NOTE | 2023-06-26 11:18 | WPDCNINT ---
Assessment and Plan Assessment and plan (1) Sepsis: Code(s): A41.9 - Sepsis, unspecified organism Status: Acute Assessment and Plan: Patient presented with tachycardia, shortness of breath, altered mental status, seizures, elevated WBC count with neutrophil predominance, elevated lactic acid -patient given 1 L IV fluid bolus in the ER -have ordered 1 L of IV fluid bolus in the ICU -will start him on maintenance IV fluids -will trend lactic acid -blood pressures are stable at this time -will obtain LP under fluoroscopy by Interventional Radiology -discussed with Neurology, will start patient on antibiotics for bacterial meningitis and acyclovir for viral meningitis after LP -06/26: Blood cultures have been ordered -06/26: start patient on vancomycin, meropenem, acyclovir (patient is allergic to penicillin/ampicillin) ABG in the ICU are 7.41/32/95/20/97% O2 sats on 2 L nasal cannula (2) Altered mental status: Qualifiers: Altered mental status type: unspecified Qualified Code(s): R41.82 - Altered mental status, unspecified Code(s): R41.82 - Altered mental status, unspecified Status: Acute Assessment and Plan: Altered mental status can be multifactorial, be related to bacterial meningitis, seizures/postictal, hypertensive urgency, sepsis -patient possibly postictal, does open his eyes and nods to questions -patient also agitated and was started on Precedex infusion, -continue to monitor neurologic status (3) Seizure: Code(s): R56.9 - Unspecified convulsions Status: Acute Assessment and Plan: Patient does not have any history of seizures but had a witnessed tonic-clonic seizure in the ER, was given Keppra 1 g IV x1 -continue Keppra 1 g IV q.12 hours -neurology following -EEG in a.m. (4) Hypertensive urgency: Code(s): I16.0 - Hypertensive urgency Status: Acute Assessment and Plan: Patient has a history of hypertension, had systolic blood pressures in the 200s in the ER -according the patient's , the nitroglycerin neutralizer and primary care doctors are trying to manage his blood pressures which have been labile -have consulted Cardiology (5) Elevated troponin: Code(s): R79.89 - Other specified abnormal findings of blood chemistry Status: Acute Assessment and Plan: Initial troponins were negative 0.012-->0.133-->0.392, could be related to sepsis, hypertensive urgency -patient to get lumbar puncture so cannot start heparin infusion -cardiology has been consulted (6) Rhabdomyolysis: Code(s): M62.82 - Rhabdomyolysis Status: Acute Assessment and Plan: CK levels are elevated at 2505 -patient received 2 L IV fluid bolus -will increase maintenance IV fluids to 150 mL/hour -repeat CK level this evening Plan DVT prophylaxis: Lovenox starting tomorrow (06/27) Stress ulcer prophylaxis: Protonix Nutrition: NPO for now Code Status: Full code Critical Care Time Spent: 53 minutes Discuss with neurologist and hospitalist Due to a high probability of clinically significant, life threatening deterioration, the patient required my highest level of preparedness to intervene emergently and I personally spent this critical care time directly and personally managing the patient. This critical care time included obtaining a history; examining the patient; pulse oximetry; ordering and review of studies; arranging urgent treatment with development of a management plan; evaluation of patient's response to treatment; frequent reassessment; and discussions with other providers. It was exclusive of separately billable procedures and treating other patients and teaching time. Please see Assessment and Plan section and the rest of the note for further information on patient assessment and treatment This dictation may have been done utilizing a voice recognition system. Attempts have been made to correct errors. However, there may be unco
[2023-06-26] MEDS: LACTATED RINGERS 1,000 ML 999 ML IV CONT (11:23)
[2023-06-26 11:43] LABS: Alveolar/Arterial O2 Gradient 65.9 mmHg; Base Excess ABG -3.1 mEq/l (+/-2.0); Fractional Inspired Oxygen 28 %; HCO3 ABG 20.4 mEq/l (22.0-26.0); Oxygen Content ABG 20.4 %vol (16.0-22.0); Oxygen Saturation ABG 97.4 % (95.0-100.0); Oxyhemoglobin 95.6 % THb (90.0-100.0); PCO2 ABG 32.7 mmHg (35.0-45.0); PO2 ABG 95.2 mmHg (80.0-100.0); Total Hemoglobin 15.1 g/dL (12.0-18.0); pH ABG 7.414 (7.350-7.450)
[2023-06-26 11:45] LABS: Device NASAL CANNULA; Site Drawn RIGHT RADIAL
[2023-06-26 11:48] LABS: Basophils Absolute Auto 0.1 K/mm3 (0.0-0.1); Basophils Percent Auto 0.3 % (0.2-1.2); Eosinophils Percent Auto 0.1 % (0-4.4); Hematocrit 41.3 % (42.0-52.0); Hemoglobin 14.5 g/dL (14.0-18.0); Immature Granulocyte Absolute 0.11 K/mm3 (0.00-0.031); Immature Granulocyte Percent A 0.6 % (0-0.5); Lymphocytes Absolute Auto 0.66 K/mm3 (0.9-3.2); Lymphocytes Percent Auto 3.3 % (18.3-44.2); Mean Corpuscular HGB Conc 35.1 g/dl (32-36); Mean Corpuscular Hemoglobin 31.3 pg (26-34); Monocytes Absolute Auto 1.6 K/mm3 (0.1-0.6); Monocytes Percent Auto 7.8 % (2.6-8.5); Neutrophils Absolute Auto 17.4 K/mm3 (1.3-6.7); Neutrophils Percent Auto 87.9 % (45.5-73.1); Platelet Count Result 209 k/mm3 (150-375); Red Blood Count 4.64 M/mm3 (4.6-6.20); Red Cell Distribution Width 12.4 % (11.5-14.5); White Blood Count 19.8 K/mm3 (4.5-10.0)
[2023-06-26 11:54] LABS: Ammonia < 9 umol/L (9-30)
[2023-06-26 11:58] LABS: Lactic Acid Reflex 2.3 mmol/L (0.7-2.0)
[2023-06-26 11:59] LABS: Partial Thromboplastin Time 25.9 SECONDS (22.3-36.8)
[2023-06-26 12:00] LABS: Lipase 187 U/L (23-300); Magnesium 2.2 mg/dL (1.6-2.3); Phosphorus 1.8 mg/dL (2.5-4.5)
[2023-06-26 12:11] LABS: Alanine Aminotransferase 34 U/L (6-50); Albumin Level 4.3 g/dL (3.5-5.1); Alkaline Phosphatase 58 U/L (38-126); Anion Gap 6 mmol/L (8-16); Aspartate Amino Transferase 57 U/L (17-59); Bilirubin,Total 0.8 mg/dL (0.2-1.3); Blood Urea Nitrogen 16 mg/dL (9-20); CRP < 0.5 mg/dL (<1.0); Calcium 8.4 mg/dL (8.4-10.2); Carbon Dioxide 25 mmol/L (22-30); Chloride 109 mmol/L (98-107); Estimated CRCL calculation 70 ml/min; Estimated Glomerular Filt Rate > 60; Glucose 133 mg/dL (65-110); Potassium 3.5 mmol/L (3.4-5.0); Sodium 140 mmol/L (137-145)
[2023-06-26 12:13] LABS: Troponin I 0.392 ng/mL (0.000-0.034)
[2023-06-26 12:22] LABS: Hemoglobin A1C 5.9 % (<5.7)
--- NOTE | 2023-06-26 12:40 | WPDNEURCNPN ---
Assessment and Plan Assessment and plan (1) Seizure: Code(s): R56.9 - Unspecified convulsions Status: Acute Plan Bernard Loving is a 52 year old male with a history of chronic smoking, aortic valve disease presenting for evaluation of seizures. Patient noted to have witnsessed seizure while in the ER yesterday. HE had an admission not long ago for transient mental status change that self-resolved. That could have been sequela of seizure at that time as well. His WBC was elevated on presentation this time with left shift. Could be due to seizure, but will also need to evaluate for meningitis/encephalitis. - Agree with LP - Start acyclovir and meningitic antibiotics -- continue until cultures return - Routine EEG - MRI brain - Continue Keppra 1000mg BID - Patient will not be able to drive or operate heavy machinery until he is seizure free for at least six months Consult date: 06/26/23 Reason for consult: Seizures, altered mental status HPI: Bernard Loving is a 52 year old male with a history of chronic smoking, aortic valve disease presenting for evaluation of altered mental status and seizures. Patient presented to [facility] due to headache, palpitations, shortness of breath. During his ER evaluation, the ER physician witnessed patient having a generalized tonic clonic seizure. HE was given 4mg Ativan, 5mg Versed, and 5mg Haldol. He also received Keppra 1000mg x 1. He became quite agitated afterwards so had to be placed on restraints. He was started on precedex and admitted to the ICU. Labs were significant for WBC of 19.8 with left shift. Urine toxicology screen was positive for cannabinoids. CT brain was negative for any acute changes. Of note, patient had an admission for altered menta status in May 2023. He presented with encephalopathy but seemed to improve on his own so it was thought to possibly be viral encephalitis. He did not get a spinal tap at the time because his mental status had improved. Review of Systems Review of Systems: patient sedated with precedex ROS unobtainable: Yes unobtainable due to mental status PMFSH Past Medical History Medical History Aortic insufficiency with aortic stenosis Diverticulitis Hypertension Systolic murmur Tobacco use Family History Family History Father Family history of thyroid disease Mother Family history of diabetes mellitus in first degree relative Social History Social History (Updated 06/26/23 @ 08:40 by Liliana Guo MD) Smoking packs per day: 2 Smoking cigarettes per day: 40.0 Years smoked: 35 Smoking pack-years: 70.00 Smoking status: Former smoker Alcohol intake: current Drinks per week: 2 Alcohol use details: Drinks shots on Tuesdays while playing darts Substance use: current Substance use type: marijuana Do You Feel Safe in your Home?: Yes Lack of Transportation: No Lack of Food: Never True Current Housing: I Have Housing Concerned About Future Housing: No Difficulty Paying Gas/Electric Bills: No Difficulty Paying for Meds: No Currently Unemployed: No Education: Bachelor's Degree Difficulty w/ Childcare or Family Care: No Living arrangements: with family Additional living arrangements comments: Gender identity (if verbalized by the patient): Male Spiritual care concerns: No Meds Home Medications and Allergies Home Medications Medication Instructions Recorded Confirmed Type losartan 25 mg tablet 25 mg PO DAILY #30 tabs 05/09/23 06/26/23 Rx Allergies Allergy/AdvReac Type Severity Reaction Status Date / Time ampicillin Allergy Unknown Unknown Verified 06/26/23 12:49 Penicillins Allergy Unknown Unknown Verified 06/26/23 12:49 Vital Signs Vital Signs - 24 hr 06/26/23 06:21 06/26/23 08:00 06/26/23 09:15 Temperature 36.6 C Pulse Rate 82 160 H 162 H Respiratory Rate 15 18 20 Blood Pressure 124/90
--- NOTE | 2023-06-26 12:43 | PM.IMHP ---
H&P: HPI History of Present Illness Date/Time: 06/26/23 12:43 Chief Complaint: CAREY, Palpitations, Diaphoresis Narrative: 52 y/o presents here with diaphoresis, CAREY, and palpations with PMH diverticulitis and tobacco use. Patient presented here with palpitations, CAREY, SOB, and diaphoresis. Patient reports waking from sleep last night around 0300 with clammy, anxious/panicked, and unsteady per . Shortly after arrival patient had a tonic-clonic seizure requiring the abortive medication, given 2 mg of IV Ativan. Patient subsequently became agitated, due to agitation he was difficult to examine and required medications for patient's safety. Placed in mechanical restraints. Given Keppra 1G IVPB. Head CT done and showed no significant abnormalities. Patient had similar presentation on 05/06/23 where he was started on treatment for meningitis and given dexamethasone, LP not done due to marked improvement. Concerned for viral meningitis given quick resolution or increased viscosity ov blood given elevated hgb (suspect this is secondary to tobacco use). Echo showed abnormal appearance of the aortic valve.? It is likely trileaflet with calcifications noted. ?Appears to have mild aortic stenosis with moderate aortic insufficiency. Per mother, they are now more concerned that patient has had ongoing seizures. heard 2 thumps this morning and yelled to patient about what had caused it. Short amount of time lapsed between first thump and when patient then walked out confused/pale/diaphoretic, approximately 1 minute. Patient was able to ambulate with an unsteady gait to the restroom with some assistance/monitoring from . While in restroom, a second thump was heard. Patient reported the toilet seat got stuck. Patient had scratch near left ear originally thought to be due to cat scratch, blood was dried, however has since developed ecchymosis. Patient and went to bed at 10:10 p.m., no neuro deficits or complaints. After arrival to ED, patient also complained of tongue swelling and headache returned just prior to having seizure-like activity in the ED. Patient then slowly turned head to the side, gaze no longer focused, and eyebrow twitching then noted by . called for assistance and when she turned back patient had tonic-clonic activity. Per bedside RN in the ICU, patient was A/Ox2 prior to LP and per patient's mother he was able to recognize her. Was given additional anxiolytics for procedure and now somnolent. Per , petechiae have been present for the past 20+ years. No concerns from or mother for depression or SI. Initial VS at presentation: 97.8 F, HR 82, RR 15, 124/90, 98% on RA. Later developed tachycardia with rate ranging between 123 - 162. ED workup showed leukocytosis with WBC at 19.8, no anemia, creatinine 1.2, gap 6, A1C 5.9, glucose 133, ammonia less than 9, CK 2505, initial troponin negative, subsequent trop 0.392, lipase 837, UDS positive for cannabinoids, and viral PCR negative for flu, RSV, COVID. Head CT unremarkable, CXR showed normal chest, and EKG showed sinus rhythm initially with nonspecific T-wave abnormality, repeat EKG showed sinus tachycardia with rate of 155 and short VA interval, possible atrial flutter. ABG showed pH 7.414, pCO2 32.7, pO2 95.2, HCO3 20.4, O2 sat 97.4%. Review of Systems Review of Systems: All systems reviewed & are unremarkable except as noted in HPI and below PMFSH Past Medical History Medical History Aortic insufficiency with aortic stenosis Diverticulitis Hypertension Systolic murmur Tobacco use Family History Family History Father Family history of thyroid disease Mother Family history of diabetes mellitus in first degree relative Social History Social History Smoking packs per day: 2 Smoking cigarettes per day: 40.0 Years smoked: 35 Smoking pack-years: 70.00
[2023-06-26 12:45] LABS: MRSA (PCR) NOT DETECTED (NOT DETECTE)
[2023-06-26 12:48] LABS: Creatine Kinase 2505 U/L (55-170)
[2023-06-26 14:00] LABS: Glucose CSF 105 mg/dL (40-70); Total Protein CSF 98 mg/dL (12-60)
[2023-06-26] MEDS: MEROPENEM 2 GM in SODIUM CHLORIDE 0.9% IV 100 ML IVPB ×2 (14:31→20:25)
--- NOTE | 2023-06-26 14:42 | PM.CNCAR ---
Assessment and Plan Assessment and plan (1) Hypertensive urgency: Code(s): I16.0 - Hypertensive urgency Status: Acute Assessment and Plan: SBP up to 210 mmHg at one point in the emergency department, but has normalized now. He does take losartan at home which should be resumed. (2) Elevated troponin: Code(s): R79.89 - Other specified abnormal findings of blood chemistry Status: Acute Assessment and Plan: Troponin initially <0.012, but subsequently increased to 0.133, 0.392. Patient Unable to report any symptoms at this time because he is not alert and awake as he is being weaned off of Precedex for agitation. However, patient's in mother at the bedside and able to give some history. Patient's was with the patient when he began to develop symptoms this morning. She denies any complaints of chest pain at any time. Patient did just have a exercise stress test in the office that showed some mild ST depression and coronary CTA has been scheduled to further evaluate this. I think his elevated troponin is probably secondary to marked hypertension, sepsis, and seizure. His EKG does not show any ischemic changes. For now, no plan to proceed with invasive ischemic evaluation. If he develops chest pain or ischemic EKG changes, angiography can be considered. Plan Cardiology will follow along on an as needed basis. Please call with questions History of Present Illness History of Present Illness Consult date/time: 06/26/23 14:42 Requesting physician: Ester Cruz MD Consult reason: hypertension and Other (elevated troponin) Reason For Visit: Seizure Narrative: Bernard Loving is a 52 year old with hypertension, mild aortic stenosis, and moderate aortic insufficiency. He was recently admitted to [facility] from 05/06/2023 06/19/2023 because of headaches and altered mental status. He presents to the hospital now with headache, diaphoresis, altered mental status, and gait abnormality recognized by his . He did have a witnessed tonic clonic seizure in the emergency department and has been admitted to the ICU for further management. During his evaluation his troponin levels were drawn and noted to be elevated at 0.133 and subsequently 0.392. Patient unable answer questions at this time but the patient's is present at the bedside and denies patient complaining of any chest pain. He was in his normal state of health prior to onset of symptoms this morning. Review of Systems Review of Systems: ROS unobtainable: Yes unobtainable due to medical condition [facility] Past Medical History Medical History Aortic insufficiency with aortic stenosis Diverticulitis Hypertension Systolic murmur Tobacco use Family History Family History Father Family history of thyroid disease Mother Family history of diabetes mellitus in first degree relative Social History Social History Smoking packs per day: 2 Smoking cigarettes per day: 40.0 Years smoked: 35 Smoking pack-years: 70.00 Smoking status: Former smoker Alcohol intake: current Drinks per week: 2 Alcohol use details: Drinks shots on Tuesdays while playing darts Substance use: current Substance use type: marijuana Do You Feel Safe in your Home?: Yes Lack of Transportation: No Lack of Food: Never True Current Housing: I Have Housing Concerned About Future Housing: No Difficulty Paying Gas/Electric Bills: No Difficulty Paying for Meds: No Currently Unemployed: No Education: Bachelor's Degree Difficulty w/ Childcare or Family Care: No Living arrangements: with family Additional living arrangements comments: Gender identity (if verbalized by the patient): Male Spiritual care concerns: No Meds Home Medications and Allergies Home Medications Medication Inst
[2023-06-26 14:46] LABS: Reflex Lactic Acid Yes or No Add Lactic
[2023-06-26 15:04] LABS: Appearance CSF Clear (Clear); CSF source CSF; Color CSF Colorless (Colorless); Nucleated Cell CSF 3 /uL (0-5); Red Blood Cell CSF 12 (0-2)
[2023-06-26 15:08] LABS: Lymphocytes CSF 60 % (40-80); Monocytes CSF 28 % (15-45); Neutrophils CSF 12 % (0-6)
[2023-06-26 15:39] LABS: Lactic Acid 1.2 mmol/L (0.7-2.0)
[2023-06-26] MEDS: VANCOMYCIN 1,250 MG/NS 250 ML 1,250 MG/250 ML BAG 166.67 MG IVPB (15:50)
[2023-06-26] MEDS: VANCOMYCIN 1,000 MG/NS 250 ML 1,000 MG/250 ML BAG 250 MG IVPB (15:51)
[2023-06-26] MEDS: CARBAMIDE PEROXIDE 6.5% OT SOLN 15 ML BTL 5 DROP EACH EAR (17:49)
[2023-06-26 18:34] LABS: Creatine Kinase 5190 U/L (55-170)
[2023-06-26] MEDS: SODIUM CHLORIDE 0.9% IV 1,000 ML 150 ML IV CONT (18:43)
[2023-06-27] VITALS (19 sets, daily range): BP systolic 101–134; BP diastolic 39–89; PULSE 68–95; RESP 13–22; TEMP 36.2–38; O2SAT 94–100
[2023-06-27] MEDS: SODIUM CHLORIDE 0.9% IV 1,000 ML 150 ML IV CONT ×3 (03:20→20:19)
[2023-06-27 03:48] LABS: Basophils Percent Auto 0.2 % (0.2-1.2); Eosinophils Percent Auto 0.3 % (0-4.4); Hematocrit 38.5 % (42.0-52.0); Immature Granulocyte Absolute 0.05 K/mm3 (0.00-0.031); Immature Granulocyte Percent A 0.3 % (0-0.5); Lymphocytes Percent Auto 12.4 % (18.3-44.2); Mean Corpuscular HGB Conc 33.8 g/dl (32-36); Mean Corpuscular Hemoglobin 31.3 pg (26-34); Mean Corpuscular Volume 92.8 fl (80-100); Mean Platelet Volume 9.9 fl (7.4-10.4); Monocytes Absolute Auto 1.3 K/mm3 (0.1-0.6); Monocytes Percent Auto 9.2 % (2.6-8.5); Neutrophils Absolute Auto 11.3 K/mm3 (1.3-6.7); Neutrophils Percent Auto 77.6 % (45.5-73.1); Platelet Count Result 175 k/mm3 (150-375); Red Blood Count 4.15 M/mm3 (4.6-6.20); Red Cell Distribution Width 12.5 % (11.5-14.5); White Blood Count 14.5 K/mm3 (4.5-10.0)
[2023-06-27 04:01] LABS: Lactic Acid Reflex 0.9 mmol/L (0.7-2.0)
[2023-06-27] MEDS: MEROPENEM 2 GM in SODIUM CHLORIDE 0.9% IV 100 ML IVPB ×3 (04:30→20:14)
[2023-06-27 04:52] LABS: Alanine Aminotransferase 35 U/L (6-50); Albumin Level 3.6 g/dL (3.5-5.1); Alkaline Phosphatase 42 U/L (38-126); Anion Gap 4 mmol/L (8-16); Aspartate Amino Transferase 102 U/L (17-59); Bilirubin,Total 1.1 mg/dL (0.2-1.3); Blood Urea Nitrogen 11 mg/dL (9-20); Carbon Dioxide 24 mmol/L (22-30); Chloride 109 mmol/L (98-107); Creatine Kinase 6348 U/L (55-170); Estimated CRCL calculation 83 ml/min; Estimated Glomerular Filt Rate > 60; Glucose 105 mg/dL (65-110); Lipase 41 U/L (23-300); Magnesium 2.1 mg/dL (1.6-2.3); Phosphorus 2.8 mg/dL (2.5-4.5); Potassium 3.4 mmol/L (3.4-5.0); Sodium 137 mmol/L (137-145)
[2023-06-27] MEDS: dexmedeTOMIDine 400 MCG/100 ML 400 MCG/100 ML BAG 6.6 MCG IV CONT (06:39)
[2023-06-27] MEDS: VANCOMYCIN 1,500 MG/NS 500 ML 1,500 MG/500 ML BAG 250 MG IVPB (07:39)
[2023-06-27] MEDS: LACTATED RINGERS 1,000 ML 999 ML IV CONT (07:39)
--- NOTE | 2023-06-27 08:29 | WPDINTPN ---
Progress Note: A&P Assessment and Plan (1) Sepsis: Qualifiers: Sepsis type: sepsis due to unspecified organism Sepsis acute organ dysfunction status: unspecified Qualified Code(s): A41.9 - Sepsis, unspecified organism Code(s): A41.9 - Sepsis, unspecified organism Status: Acute Assessment and Plan: Patient presented with tachycardia, shortness of breath, altered mental status, seizures, elevated WBC count with neutrophil predominance, elevated lactic acid -Patient adequately fluid-resuscitated in the ER and ICU -continue maintenance IV fluids -lactic acid has normalized -blood pressures are stable at this time -neurology following the patient -LP done by Interventional Radiology on 06/26 -CSF fluid not indicated of bacterial meningitis, questionable viral meningitis -no organism seen on Gram stain -06/26: CSF cultures are pending -06/26: CSF fungal cultures are pending -CSF HSV PCR is pending -06/26: Blood cultures are pending -06/26: start patient on vancomycin, meropenem, acyclovir (patient is allergic to penicillin/ampicillin) ABG in the ICU are 7.41/32/95/20/97% O2 sats on 2 L nasal cannula (2) Altered mental status: Qualifiers: Altered mental status type: unspecified Qualified Code(s): R41.82 - Altered mental status, unspecified Code(s): R41.82 - Altered mental status, unspecified Status: Acute Assessment and Plan: Altered mental status can be multifactorial, be related to bacterial meningitis, seizures/postictal, hypertensive urgency, sepsis -patient possibly postictal, does open his eyes and nods to questions -patient also agitated and was started on Precedex infusion, -continue to monitor neurologic status 06/27: Patient is awake, alert, oriented x3, nonfocal, moves his to questions appropriately and follows simple commands -will wean Precedex infusion (3) Seizure: Code(s): R56.9 - Unspecified convulsions Status: Acute Assessment and Plan: Patient does not have any history of seizures but had a witnessed tonic-clonic seizure in the ER, was given Keppra 1 g IV x1 -continue Keppra 1 g IV q.12 hours -neurology following -EEG today (4) Hypertensive urgency: Code(s): I16.0 - Hypertensive urgency Status: Acute Assessment and Plan: Patient has a history of hypertension, had systolic blood pressures in the 200s in the ER -according the patient's , the water and gas helper and primary care doctors are trying to manage his blood pressures which have been labile -currently blood pressures are within normal limits, not requiring any losartan which is his home medication -once Precedex has been discontinued, will monitor ablation as blood pressure and restart losartan if needed (5) Elevated troponin: Code(s): R79.89 - Other specified abnormal findings of blood chemistry Status: Acute Assessment and Plan: Initial troponins were negative 0.012-->0.133-->0.392, could be related to sepsis, hypertensive urgency -patient to get lumbar puncture so cannot start heparin infusion -appreciate cardiology evaluation recommendation, no intervention at this time -06/27: patient denies any chest pain or shortness of breath this morning (6) Rhabdomyolysis: Qualifiers: Rhabdomyolysis type: non-traumatic Qualified Code(s): M62.82 - Rhabdomyolysis Code(s): M62.82 - Rhabdomyolysis Status: Acute Assessment and Plan: CK levels are elevated -patient adequately fluid-resuscitated -continue maintenance IV fluids at 150 mL/hour -will give additional IV fluid bolus this morning -continue to monitor CK levels -renal function appears normal with BUN of 11 and creatinine of 1.00, urine output has been good Plan DVT prophylaxis: Lovenox Stress ulcer prophylaxis: Protonix Nutrition: NPO for now, weaning Precedex infusion, will start clear liquid diet and advance as tolerated Code Status: Full co
[2023-06-27] MEDS: ENOXAPARIN 40 MG/0.4 ML SYRINGE SUB-Q (09:22)
[2023-06-27] MEDS: levETIRAcetam 1000MG/NACL100ML 1,000 MG/100 ML BAG 400 MG IVPB ×2 (09:23→20:10)
[2023-06-27] MEDS: PANTOPRAZOLE SODIUM IV 40 MG VIAL IV PUSH (09:25)
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
[2023-06-27] MEDS: CARBAMIDE PEROXIDE 6.5% OT SOLN 15 ML BTL 5 DROP EACH EAR (10:18)
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
--- NOTE | 2023-06-27 11:39 | WPDNEUROLOGY ---
Neurology EEG Report General Information Date of Study: 06/27/23 TEST Routine EEG DIAGNOSIS Seizure CONDITION OF RECORDING Awake, drowsy, asleep EEG NUMBER 24-30 CLINICAL HISTORY Patient had witnessed seizure while in the ER. He received versed, ultimately requiring intubation and sedation with Precedex. Now extubated. EEG DESCRIPTION During the awake state with eyes closed the background consists of 8 Hz posterior dominant rhythm which attenuates appropriately with eye opening. The recording is continuous. There is a well developed anterior-posterior gradient. No significant asymmetries of background activities are noted. With drowsiness there is waxing and waning of the dominant rhythm with eventual replacement by a mixture of beta, alpha, and theta activity. As the patient enters stage II sleep, symmetrical spindles and K-complexes are present. There are no epileptiform discharges or seizures during this recording. IMPRESSION This is a normal routine EEG recorded in awake and asleep states. There are no electrographic seizures identified, nor are there any epileptiform discharges. Please note that a normal EEG cannot exclude a seizure disorder. Clinical correlation is recommended.
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
[2023-06-28] VITALS (13 sets, daily range): BP systolic 122–142; BP diastolic 74–105; PULSE 68–92; RESP 12–20; TEMP 36.7–37.6; O2SAT 94–97
[2023-06-28 01:41] LABS: Vancomycin Trough 7.8 ug/mL (10.0-20.0)
[2023-06-28] MEDS: VANCOMYCIN 1,250 MG/NS 250 ML 1,250 MG/250 ML BAG 166.67 MG IVPB ×3 (02:57→19:31)
[2023-06-28 04:21] LABS: Basophils Percent Auto 0.4 % (0.2-1.2); Eosinophils Absolute Auto 0.1 K/mm3 (0-0.3); Eosinophils Percent Auto 1.2 % (0-4.4); Hemoglobin 13.5 g/dL (14.0-18.0); Immature Granulocyte Absolute 0.03 K/mm3 (0.00-0.031); Immature Granulocyte Percent A 0.3 % (0-0.5); Lymphocytes Absolute Auto 2.26 K/mm3 (0.9-3.2); Lymphocytes Percent Auto 22.2 % (18.3-44.2); Mean Corpuscular HGB Conc 33.8 g/dl (32-36); Mean Corpuscular Hemoglobin 31.4 pg (26-34); Mean Platelet Volume 9.7 fl (7.4-10.4); Monocytes Percent Auto 9.4 % (2.6-8.5); Neutrophils Absolute Auto 6.8 K/mm3 (1.3-6.7); Neutrophils Percent Auto 66.5 % (45.5-73.1); Platelet Count Result 171 k/mm3 (150-375); Red Cell Distribution Width 12.3 % (11.5-14.5); White Blood Count 10.2 K/mm3 (4.5-10.0)
[2023-06-28] MEDS: MEROPENEM 2 GM in SODIUM CHLORIDE 0.9% IV 100 ML IVPB ×3 (04:29→21:31)
[2023-06-28 04:44] LABS: Alanine Aminotransferase 36 U/L (6-50); Albumin Level 3.7 g/dL (3.5-5.1); Alkaline Phosphatase 44 U/L (38-126); Anion Gap 5 mmol/L (8-16); Aspartate Amino Transferase 72 U/L (17-59); Bilirubin,Total 1.1 mg/dL (0.2-1.3); Blood Urea Nitrogen 9 mg/dL (9-20); Calcium 8.2 mg/dL (8.4-10.2); Carbon Dioxide 25 mmol/L (22-30); Chloride 107 mmol/L (98-107); Estimated CRCL calculation 83 ml/min; Estimated Glomerular Filt Rate > 60; Glucose 98 mg/dL (65-110); Magnesium 2.2 mg/dL (1.6-2.3); Phosphorus 2.8 mg/dL (2.5-4.5); Potassium 3.2 mmol/L (3.4-5.0); Sodium 137 mmol/L (137-145)
[2023-06-28] MEDS: SODIUM CHLOR 3% 15 ML NEB (RESPIRATORY THERAPY) 6 ML INHALATION (04:44)
[2023-06-28] MEDS: SODIUM CHLORIDE 0.9% IV 1,000 ML 150 ML IV CONT ×2 (05:22→18:01)
[2023-06-28 05:45] LABS: Creatine Kinase 3075 U/L (55-170)
[2023-06-28] MEDS: ENOXAPARIN 40 MG/0.4 ML SYRINGE SUB-Q (08:09)
[2023-06-28] MEDS: PANTOPRAZOLE SODIUM IV 40 MG VIAL IV PUSH (08:09)
[2023-06-28] MEDS: CARBAMIDE PEROXIDE 6.5% OT SOLN 15 ML BTL 5 DROP EACH EAR ×2 (08:10→17:34)
[2023-06-28] MEDS: levETIRAcetam 1000MG/NACL100ML 1,000 MG/100 ML BAG 400 MG IVPB ×2 (08:10→21:10)
[2023-06-28] MEDS: POTASSIUM CHLORIDE 20 MEQ ER TABLET 40 MEQ PO (10:49)
[2023-06-28 13:26] LABS: CMV DNA Quant PCR IU/mL Not Detected; Cytomegalovirus DNA Quant PCR Not Detected log IU/mL; Cytomegalovirus DNA Source Serum
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
--- NOTE | 2023-06-28 15:39 | WPDNEUROPN ---
Progress Note: A&P Assessment and Plan (1) Seizure: Code(s): R56.9 - Unspecified convulsions Status: Acute (2) Altered mental status: Qualifiers: Altered mental status type: unspecified Qualified Code(s): R41.82 - Altered mental status, unspecified Code(s): R41.82 - Altered mental status, unspecified Status: Acute Plan 1. Seizure disorder with rhabdomyolysis gradually improved EEG normal with no electrographic seizures. Treatment is being continued as such in addition to other modalities Time Spent With Patient Time with patient: less than 15 minutes Subjective Date/time seen: 06/28/23 15:39 Interval history: 52 years old right-handed male admitted to the hospital through the ER for the complaints of headaches with palpitation and difficulties in breathing admitted to Critical care unit for sepsis with clinical finding of tachycardia tachypnea change in the mental status seizures leukocytosis with elevated lactic acid, seen by Dr. Cesar by the time patient had documented aortic valve disease patient had been in the hospital before for transient mental status changes which self-resolved he was found to have leukocytosis with left shift could very well be secondary to seizure but was evaluated for meningitis and encephalitis received acyclovir and meningitic antibiotics with routine EEG and MRI of the brain and continuation of Keppra 1000mg twice a day, also seen by the [employer] for hypertension with normal EKG but underwent invasive ski dontae evaluation. Being followed for the aortic stenosis of nonrheumatic nature by the [employer] being continued on the Keppra 1000mg twice a day with driving restrictions my this time lactic acid has normalized, blood pressure stable, spinal fluid studies not indicate a bacterial meningitis questionable viral meningitis but negative g stain and pending cultures. Most recent lab CBC with WBC 10.2 hemoglobin 13.5 platelet count 171 INR 1.0 BMP with potassium 3.2 calcium 8.2 and AST 72 but CK 3075 and definitely come down. His spinal fluid cells were 12 glucose 105 and total protein 98 all other labs pending Review of Systems Review of Systems: All systems reviewed & are unremarkable except as noted in HPI and below Exam Narrative: exam reveals him to be awake alert today following verbal commands appropriately extraocular movements are full no nystagmus able to move both upper and lower extremities with no drift against gravity reflexes symmetrical in heart regular lungs clear Objective Data Vital Signs Vital Signs: Vital Signs - 24 hr 06/27/23 16:00 06/27/23 16:00 06/27/23 16:00 Temperature 37.9 C H Pulse Rate 92 89 Respiratory Rate 18 Blood Pressure 129/80 Pulse Oximetry 99 Oxygen Delivery Room Air 06/27/23 18:00 06/27/23 18:00 06/27/23 20:00 Temperature 37.9 C H Pulse Rate 88 88 91 Respiratory Rate 22 H Blood Pressure 127/77 Pulse Oximetry 97 Oxygen Delivery 06/27/23 20:00 06/27/23 20:00 06/27/23 22:00 Temperature 38.0 C H Pulse Rate 91 95 Respiratory Rate 20 Blood Pressure 121/75 Pulse Oximetry 97 Oxygen Delivery Room Air 06/27/23 22:00 06/28/23 00:00 06/28/23 00:00 Temperature 37.9 C H 37.6 C H Pulse Rate 95 84 Respiratory Rate 17 16 Blood Pressure 116/69 122/74 Pulse Oximetry 94 94 Oxygen Delivery Room Air 06/28/23 00:00 06/28/23 02:00 06/28/23 03:43 Temperature Pulse Rate 92 90 Respiratory Rate Blood Pressure Pulse Oximetry Oxygen Delivery Room Air 06/28/23 02:00 06/28/23 04:00 06/28/23 04:45 Temperature 37.4 C 37.5 C Pulse Rate 72 79 82 Respiratory Rate 16 19 13 Blood Pressure 138/105 H 137/83 Pulse Oximetry 97 97 Oxygen Delivery 06/28/23 05:26 06/28/23 04:00 06/28/23 06:00 Temperature Pulse Rate 80 81 70 Respiratory Rate 18 Blood Pressure Pulse Oximetry Oxygen Delivery 06/28/23 08:00 06/28/23 08:07 02
--- NOTE | 2023-06-28 17:50 | PC.NURSE ---
This patient, Bernard Loving, was transferred to [facility] on 06/28/23 at 1243. Personal belongings sent with patient. Report given to PABLO Castro. Appropriate documentation sent with patient.
[2023-06-28 21:54] LABS: Cryptococcus Antigen Not Detected (Not Detected); Cryptococcus Specimen Source CSF
[2023-06-29 03:14] LABS: Vancomycin Trough 19.4 ug/mL (10.0-20.0)
[2023-06-29] MEDS: VANCOMYCIN 1,250 MG/NS 250 ML 1,250 MG/250 ML BAG 166.67 MG IVPB ×3 (03:35→21:42)
[2023-06-29] MEDS: MEROPENEM 2 GM in SODIUM CHLORIDE 0.9% IV 100 ML IVPB ×3 (05:09→20:00)
[2023-06-29] MEDS: SODIUM CHLOR 3% 15 ML NEB (RESPIRATORY THERAPY) 6 ML INHALATION (05:29)
[2023-06-29 05:32] VITALS: BP 180/82; PULSE 74; RESP 14; TEMP 36.7; O2SAT 95
[2023-06-29 06:37] LABS: Basophils Absolute Auto 0.1 K/mm3 (0.0-0.1); Basophils Percent Auto 0.7 % (0.2-1.2); Eosinophils Absolute Auto 0.3 K/mm3 (0-0.3); Eosinophils Percent Auto 3.4 % (0-4.4); Hematocrit 37.7 % (42.0-52.0); Immature Granulocyte Absolute 0.03 K/mm3 (0.00-0.031); Immature Granulocyte Percent A 0.3 % (0-0.5); Lymphocytes Absolute Auto 1.65 K/mm3 (0.9-3.2); Lymphocytes Percent Auto 19.1 % (18.3-44.2); Mean Corpuscular HGB Conc 34.5 g/dl (32-36); Mean Corpuscular Hemoglobin 31.5 pg (26-34); Mean Corpuscular Volume 91.3 fl (80-100); Mean Platelet Volume 9.3 fl (7.4-10.4); Monocytes Absolute Auto 0.9 K/mm3 (0.1-0.6); Monocytes Percent Auto 10.3 % (2.6-8.5); Neutrophils Absolute Auto 5.7 K/mm3 (1.3-6.7); Neutrophils Percent Auto 66.2 % (45.5-73.1); Platelet Count Result 186 k/mm3 (150-375); Red Blood Count 4.13 M/mm3 (4.6-6.20); Red Cell Distribution Width 12.1 % (11.5-14.5); White Blood Count 8.6 K/mm3 (4.5-10.0)
[2023-06-29 07:04] LABS: Alanine Aminotransferase 35 U/L (6-50); Albumin Level 3.8 g/dL (3.5-5.1); Alkaline Phosphatase 44 U/L (38-126); Anion Gap 6 mmol/L (8-16); Aspartate Amino Transferase 61 U/L (17-59); Bilirubin,Total 0.9 mg/dL (0.2-1.3); Blood Urea Nitrogen 10 mg/dL (9-20); Calcium 8.9 mg/dL (8.4-10.2); Carbon Dioxide 24 mmol/L (22-30); Chloride 108 mmol/L (98-107); Creatine Kinase 1493 U/L (55-170); Estimated CRCL calculation 83 ml/min; Estimated Glomerular Filt Rate > 60; Glucose 113 mg/dL (65-110); Magnesium 2.1 mg/dL (1.6-2.3); Phosphorus 2.7 mg/dL (2.5-4.5); Potassium 3.6 mmol/L (3.4-5.0); Sodium 138 mmol/L (137-145)
[2023-06-29] MEDS: ENOXAPARIN 40 MG/0.4 ML SYRINGE SUB-Q (07:51)
[2023-06-29] MEDS: levETIRAcetam 1000MG/NACL100ML 1,000 MG/100 ML BAG 400 MG IVPB (07:53)
[2023-06-29] MEDS: PANTOPRAZOLE SODIUM IV 40 MG VIAL IV PUSH (08:01)
[2023-06-29] MEDS: CARBAMIDE PEROXIDE 6.5% OT SOLN 15 ML BTL 5 DROP EACH EAR ×2 (08:30→16:22)
[2023-06-29] MEDS: SODIUM CHLORIDE 0.9% IV 1,000 ML 75 ML IV CONT (11:20)
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
[2023-06-29] MEDS: LOSARTAN POTASSIUM 25 MG TABLET 50 MG PO (12:36)
[2023-06-29 14:00] VITALS: BP 160/88; PULSE 68; RESP 20; TEMP 36.9; O2SAT 98
[2023-06-29 20:00] VITALS: PULSE 82; RESP 20; O2SAT 94
[2023-06-29] MEDS: levETIRAcetam 500 MG TABLET 1000 MG PO (20:04)
[2023-06-29 21:20] VITALS: BP 142/79; PULSE 82; RESP 20; TEMP 37.1; O2SAT 94
[2023-06-30 00:05] LABS: Epstein Barr Virus DNA PCR Not Detected (Not Detected); Source Epstein Barr Virus CSF
[2023-06-30 04:15] VITALS: BP 128/81; PULSE 88; RESP 18; TEMP 36.8; O2SAT 98
[2023-06-30] MEDS: MEROPENEM 2 GM in SODIUM CHLORIDE 0.9% IV 100 ML IVPB (04:59)
[2023-06-30] MEDS: VANCOMYCIN 1,250 MG/NS 250 ML 1,250 MG/250 ML BAG 166.67 MG IVPB (05:06)
[2023-06-30 06:23] LABS: Basophils Absolute Auto 0.1 K/mm3 (0.0-0.1); Basophils Percent Auto 0.6 % (0.2-1.2); Eosinophils Absolute Auto 0.5 K/mm3 (0-0.3); Eosinophils Percent Auto 4.5 % (0-4.4); Hematocrit 41.3 % (42.0-52.0); Immature Granulocyte Absolute 0.02 K/mm3 (0.00-0.031); Immature Granulocyte Percent A 0.2 % (0-0.5); Lymphocytes Absolute Auto 1.68 K/mm3 (0.9-3.2); Lymphocytes Percent Auto 16.8 % (18.3-44.2); Mean Corpuscular HGB Conc 33.9 g/dl (32-36); Mean Corpuscular Hemoglobin 30.8 pg (26-34); Mean Platelet Volume 9.5 fl (7.4-10.4); Monocytes Percent Auto 9.8 % (2.6-8.5); Neutrophils Absolute Auto 6.8 K/mm3 (1.3-6.7); Neutrophils Percent Auto 68.1 % (45.5-73.1); Platelet Count Result 215 k/mm3 (150-375); Red Blood Count 4.54 M/mm3 (4.6-6.20); Red Cell Distribution Width 12.1 % (11.5-14.5)
[2023-06-30 06:33] LABS: Alanine Aminotransferase 38 U/L (6-50); Alkaline Phosphatase 46 U/L (38-126); Anion Gap 6 mmol/L (8-16); Aspartate Amino Transferase 47 U/L (17-59); Bilirubin,Total 0.8 mg/dL (0.2-1.3); Blood Urea Nitrogen 13 mg/dL (9-20); Calcium 9.1 mg/dL (8.4-10.2); Carbon Dioxide 23 mmol/L (22-30); Chloride 109 mmol/L (98-107); Creatine Kinase 1245 U/L (55-170); Estimated CRCL calculation 83 ml/min; Estimated Glomerular Filt Rate > 60; Glucose 113 mg/dL (65-110); Magnesium 2.2 mg/dL (1.6-2.3); Phosphorus 2.5 mg/dL (2.5-4.5); Potassium 3.6 mmol/L (3.4-5.0); Sodium 138 mmol/L (137-145)
[2023-06-30 08:00] VITALS: PULSE 80; RESP 20; O2SAT 98
[2023-06-30 09:04] VITALS: O2SAT 99
[2023-06-30] MEDS: levETIRAcetam 500 MG TABLET 1000 MG PO ×2 (09:26→20:29)
[2023-06-30] MEDS: CARBAMIDE PEROXIDE 6.5% OT SOLN 15 ML BTL 5 DROP EACH EAR ×2 (09:29→17:05)
[2023-06-30] MEDS: LOSARTAN POTASSIUM 25 MG TABLET 50 MG PO (09:29)
[2023-06-30] MEDS: PANTOPRAZOLE SODIUM IV 40 MG VIAL IV PUSH (11:51)
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
[2023-06-30 14:00] VITALS: BP 153/79; PULSE 80; RESP 20; TEMP 36.5; O2SAT 98
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
[2023-06-30 14:13] LABS: Herpes Simplex Type 1 DNA PCR Detected (Not Detected); Herpes Simplex Type 2 DNA PCR Not Detected (Not Detected)
[2023-06-30 19:00] VITALS: BP 116/82; PULSE 79; RESP 18; TEMP 37; O2SAT 96
[2023-06-30] MEDS: cefTRIAXone 2 GM/NS 100 ML 2 GM/100 ML BAG IVPB (20:29)
[2023-06-30 20:30] VITALS: PULSE 79; RESP 18; O2SAT 96
[2023-07-01 06:00] VITALS: BP 124/80; PULSE 77; RESP 18; TEMP 37.1; O2SAT 98
[2023-07-01 06:22] LABS: Basophils Absolute Auto 0.1 K/mm3 (0.0-0.1); Basophils Percent Auto 0.6 % (0.2-1.2); Eosinophils Absolute Auto 0.5 K/mm3 (0-0.3); Eosinophils Percent Auto 4.4 % (0-4.4); Hematocrit 44.2 % (42.0-52.0); Immature Granulocyte Absolute 0.05 K/mm3 (0.00-0.031); Immature Granulocyte Percent A 0.5 % (0-0.5); Lymphocytes Absolute Auto 2.18 K/mm3 (0.9-3.2); Lymphocytes Percent Auto 20.5 % (18.3-44.2); Mean Corpuscular HGB Conc 33.9 g/dl (32-36); Mean Corpuscular Hemoglobin 31.1 pg (26-34); Mean Corpuscular Volume 91.5 fl (80-100); Mean Platelet Volume 9.2 fl (7.4-10.4); Monocytes Percent Auto 9.7 % (2.6-8.5); Neutrophils Absolute Auto 6.8 K/mm3 (1.3-6.7); Neutrophils Percent Auto 64.3 % (45.5-73.1); Platelet Count Result 258 k/mm3 (150-375); Red Blood Count 4.83 M/mm3 (4.6-6.20); Red Cell Distribution Width 12.1 % (11.5-14.5); White Blood Count 10.6 K/mm3 (4.5-10.0)
[2023-07-01 06:34] LABS: Alanine Aminotransferase 45 U/L (6-50); Albumin Level 4.3 g/dL (3.5-5.1); Alkaline Phosphatase 50 U/L (38-126); Anion Gap 8 mmol/L (8-16); Aspartate Amino Transferase 50 U/L (17-59); Bilirubin,Total 0.9 mg/dL (0.2-1.3); Blood Urea Nitrogen 16 mg/dL (9-20); Calcium 9.7 mg/dL (8.4-10.2); Carbon Dioxide 24 mmol/L (22-30); Chloride 107 mmol/L (98-107); Creatine Kinase 997 U/L (55-170); Estimated CRCL calculation 83 ml/min; Estimated Glomerular Filt Rate > 60; Glucose 104 mg/dL (65-110); Magnesium 2.3 mg/dL (1.6-2.3); Phosphorus 3.2 mg/dL (2.5-4.5); Sodium 139 mmol/L (137-145)
[2023-07-01] MEDS: levETIRAcetam 500 MG TABLET 1000 MG PO (09:25)
[2023-07-01] MEDS: LOSARTAN POTASSIUM 25 MG TABLET 50 MG PO (09:25)
[2023-07-01] MEDS: cefTRIAXone 2 GM/NS 100 ML 2 GM/100 ML BAG IVPB (09:26)
[2023-07-01] MEDS: PANTOPRAZOLE SODIUM IV 40 MG VIAL IV PUSH (09:26)
[2023-07-01] MEDS: ENOXAPARIN 40 MG/0.4 ML SYRINGE SUB-Q (09:26)
[2023-07-01] MEDS: CARBAMIDE PEROXIDE 6.5% OT SOLN 15 ML BTL 5 DROP EACH EAR (09:27)
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
[2023-07-01 15:39] LABS: Varicella IgM Antibody <=0.90 (<=0.90)
[2023-07-02 16:30] LABS: Source CSF
[2023-07-04 17:17] LABS: VDRL Quantitative CSF Nonreactive (Nonreactive)
== END 2023-07-01 13:41 | disposition home or self-care (01) | DRG 872 ==
LOC: ANHED 10:03 → ANHICU 10:33 → ANH3MEDSUR 06-28 12:44
PROVIDERS: Internal Medicine; Student in an Organized Health Care Education/Training Program; Admitting Provider General Practice; Emergency Provider Emergency Medicine; PCP Internal Medicine; Visit Provider Internal Medicine
DX: A41.9 Sepsis, unspecified organism (principal); A87.9 Viral meningitis, unspecified; M62.82 Rhabdomyolysis; E87.1 Hypo-osmolality and hyponatremia; G40.89 Other seizures; B00.9 Herpesviral infection, unspecified; I16.0 Hypertensive urgency; R00.2 Palpitations; R51.9 Headache, unspecified; I35.0 Nonrheumatic aortic (valve) stenosis; Z20.822 Contact with and (suspected) exposure to COVID-19; F17.210 Nicotine dependence, cigarettes, uncomplicated
CPT/HCPCS: 36415; 36600; 62328; 70450; 70496; 70498; 71045; 80053; 80202; 80307; 82140; 82550; 82805; 82945; 83036; 83605; 83690; 83735; 84100; 84157; 84484; 85025; 85610; 85730; 86140; 86403; 86592; 86617; 86787; 87015; 87040; 87070; 87102; 87116; 87205; 87206; 87497; 87529; 87637; 87641; 87798; 88108; 89051; 93005; 94640; 95816; 96365; 96366; 96367; 96368; 96372; 96375; 96376; 99285; A9270; C9113; G0378; J0133; J0696; J1630; J1650; J1953; J2060; J2185; J2250; J2405; J3370; J7030; J7060; J7120; Q9967

== ENCOUNTER 2023-07-23 02:53 | Day surgery (SDC) | payer OTHER, SELFPAY ==
[2023-07-23] VITALS (14 sets, daily range): BP systolic 113–147; BP diastolic 71–88; PULSE 57–76; RESP 9–18; TEMP 36.3; O2SAT 96–98
[2023-07-23 09:23] LABS: Basophils Absolute Auto 0.1 K/mm3 (0.0-0.1); Basophils Percent Auto 0.9 % (0.2-1.2); Eosinophils Absolute Auto 0.5 K/mm3 (0-0.3); Eosinophils Percent Auto 6.9 % (0-4.4); Hematocrit 43.6 % (42.0-52.0); Hemoglobin 14.7 g/dL (14.0-18.0); Immature Granulocyte Absolute 0.03 K/mm3 (0.00-0.031); Immature Granulocyte Percent A 0.4 % (0-0.5); Lymphocytes Absolute Auto 1.84 K/mm3 (0.9-3.2); Mean Corpuscular HGB Conc 33.7 g/dl (32-36); Mean Corpuscular Hemoglobin 32.1 pg (26-34); Mean Corpuscular Volume 95.2 fl (80-100); Mean Platelet Volume 9.3 fl (7.4-10.4); Monocytes Absolute Auto 0.8 K/mm3 (0.1-0.6); Monocytes Percent Auto 10.7 % (2.6-8.5); Neutrophils Absolute Auto 4.4 K/mm3 (1.3-6.7); Neutrophils Percent Auto 57.1 % (45.5-73.1); Platelet Count Result 234 k/mm3 (150-375); Red Blood Count 4.58 M/mm3 (4.6-6.20); Red Cell Distribution Width 13.7 % (11.5-14.5); White Blood Count 7.7 K/mm3 (4.5-10.0)
[2023-07-23 09:27] LABS: INR 0.9; Prothrombin Time 12.7 Seconds (11.1-14.7)
[2023-07-23 09:33] LABS: Anion Gap 3 mmol/L (8-16); Blood Urea Nitrogen 16 mg/dL (9-20); Calcium 9.2 mg/dL (8.4-10.2); Carbon Dioxide 30 mmol/L (22-30); Chloride 107 mmol/L (98-107); Estimated CRCL calculation 76 ml/min; Estimated Glomerular Filt Rate > 60; Glucose 103 mg/dL (65-110); Sodium 140 mmol/L (137-145)
--- NOTE | 2023-07-23 11:15 | WPDHPUPDATE1 ---
History and Physical Update Update Date/Time: 07/23/23 11:15 History and Physical has been reviewed, including an updated exam of the patient. There are NO changes in the patient's condition. Risks, benefits, and alternatives have been discussed and questions answered. Patient agrees to proceed with procedure.
--- NOTE | 2023-07-23 11:15 | WPDMODSED ---
Moderate Sedation Note-Pt Data Patient Data Diagnosis: Coronary artery disease Present Complaint: Coronary artery disease Procedure to be performed/Plan: Coronary angiography, left heart cath, +/- PCI Allergies Allergy/AdvReac Type Severity Reaction Status Date / Time ampicillin Allergy Unknown Unknown Verified 07/22/23 12:27 Penicillins Allergy Unknown Unknown Verified 07/22/23 12:27 Home Medications Medication Instructions Recorded Confirmed Type levetiracetam 500 mg tablet 1,000 mg PO Q12HR #120 tabs 07/01/23 07/23/23 Rx (Keppra) losartan 25 mg tablet 50 mg PO DAILY #30 tabs 07/01/23 07/23/23 Rx aspirin 81 mg tablet,delayed 81 mg PO DAILY 07/22/23 07/22/23 History release rosuvastatin 10 mg tablet 10 mg PO HS 07/22/23 07/22/23 History Current Medications: Active Medications Sodium Chloride (Normal Saline Iv) 500 mls @ 100 mls/hr IV CONT .Q5H SHELL Sedation/Anesthesia: No previous sedation/anesthesia problems (including family history). 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 Systolic murmur Tobacco use Family History Family History Father Family history of thyroid disease Mother Family history of diabetes mellitus in first degree relative Social History Social History Smoking packs per day: 2 Smoking cigarettes per day: 40.0 Years smoked: 20 Smoking pack-years: 40.00 Smoking status: Former smoker Tobacco type: cigarettes Smoking end date: 05/09/23 Alcohol intake: current Drinks per week: 2 Alcohol use details: Drinks shots on Tuesdays while playing darts Substance use: current Substance use type: marijuana Do You Feel Safe in your Home?: Yes Lack of Transportation: No Lack of Food: Never True Current Housing: I Have Housing Concerned About Future Housing: No Difficulty Paying Gas/Electric Bills: No Difficulty Paying for Meds: No Currently Unemployed: No Education: Bachelor's Degree Difficulty w/ Childcare or Family Care: No Living arrangements: with family Additional living arrangements comments: Gender identity (if verbalized by the patient): Male Spiritual care concerns: No Mod Sed Physical Exam Physical Exam Pre Procedural Exam: Normal: Appearance, Heart Rate, Heart Rhythm, Neuro Exam, Abdomen, Extremities and Skin Hours since solid foods: 12 Hours since liquid intake: 8 Mallampati Classification: class III Internal Medicine - PN: Obj Da Vital Signs Vital Signs: Vital Signs - 24 hr 07/23/23 08:52 Temperature 36.3 C L Pulse Rate 68 Respiratory Rate 10 L Blood Pressure 138/71 Pulse Oximetry 98 Oxygen Delivery Room Air Meds/Results Medications: Active Medications Generic Name Dose Route Start Last Admin Trade Name Jaspalq PRN Reason Stop Dose Admin Sodium Chloride 500 mls @ 100 mls/hr 07/23/23 08:30 Normal Saline Iv IV CONT .Q5H SHELL Labs 07/23/23 08:51 07/23/23 08:51 Labs: Laboratory Results - last 24 hr 07/23/23 08:51 WBC 7.7 RBC 4.58 L Hgb 14.7 Hct 43.6 MCV 95.2 MCH 32.1 MCHC 33.7 RDW 13.7 Plt Count 234 MPV 9.3 Immature Gran % (Auto) 0.4 Neut % (Auto) 57.1 Lymph % (Auto) 24.0 Nash % (Auto) 10.7 H Eos % (Auto) 6.9 H Baso % (Auto) 0.9 Lymph # (Auto) 1.84 Nash # (Auto) 0.8 H Eos # (Auto) 0.5 H Baso # (Auto) 0.1 Abs Immat Gran (auto) 0.03 Absolute Neuts (auto) 4.4 Absolute Nucleated RBC 0.000 Nucleated RBC % 0.0 PT 12.7 INR 0.9 Sodium 140 Potassium 4.0 Chloride 107 Carbon Dioxide 30 Anion Gap 3 L BUN 16 Creatinine 1.10 Estim Creat Clear Calc 76 Estimated GFR > 60 Glucose 103 Calcium 9.2 ASA Classification/Sedation ASA Classification/Sedation ASA C
--- NOTE | 2023-07-23 11:45 | WPDCARDPROC ---
Cardiac Cath Procedure Note Date of procedure:: 07/23/23 Performing physician:: CATHETERIZATION LABORATORY REPORT Procedure Date: 07/23/2023 Manager Ship: Irais Tilley M.D., [facility]? Referring Physician: Sarabjit Landeros M.D. ? Anesthesia: Versed and Fentanyl were ordered and given in my presence at 11:20, procedure ended at 11:39. Supervision of nurse monitored moderate sedation with Versed and Fentanyl was provided for 19 minutes. Total of Versed 1mg and Fentanyl 25mcg were administered by the Shared Services Representative RN Mecca Franco. Pre-op Diagnosis: Coronary artery disease Post-op Diagnosis: Non-obstructive coronary artery disease Procedure(s): 1. Moderate sedation 2. Ultrasound-guided access of the right radial artery 3. Coronary angiography Access Site: Right radial artery Brief History and Clinical Indications: Patient is a 52 year old male who is referred for [facility] for abnormal CCTA. CCTA showed calcium score of 683, multifocal calcified and noncalcified atherosclerotic plaque resulting in up to 50% stenosis. CT FFR is negative for any ischemic lesions. All risks, benefits and alternatives to left heart catheterization with or without percutaneous coronary intervention was discussed at length with the patient. Risk of complications including but not limited to bleeding, infection, arrhythmia, stroke, worsening kidney function, blood loss, groin hematoma, limb loss, emergency coronary artery bypass grafting, and even were discussed with the patient and all questions were answered. The patient understood and wished to proceed. Time out called, patient name, date of , medical record number, allergies, procedure performed, identify Manager Ship, patient and staff member concurred with accurate data, procedure carried on. Findings: LEFT HEART CATHETERIZATION FINDINGS: 1. Left main: The left main coronary artery is widely patent without any significant obstructive disease. 2. Left anterior descending: The LAD has luminal irregularities. The first diagonal branch has mild diffuse disease. No significant obstructive angiographic disease. 3. Left circumflex: The proximal and mid LCX has mild diffuse disease. OM-1 is a large caliber vessel with mild disease in the proximal portion. OM-2 is a large caliber vessel with mild diffuse disease in the proximal and mid portion. No significant obstructive angiographic disease. 4. Right coronary artery: The RCA is the dominant vessel. The mid RCA has a moderate stenosis. No significant obstructive angiographic disease. Description of Procedure: Informed consent signed and placed in the chart. Patient transferred to labor trainer room. Prepped and draped in usual sterile fashion. 2% lidocaine injected subcutaneously in right wrist area. 22-gauge venipuncture catheter used to access the right radial artery under ultrasound guidance. 6-FR slender sheath placed in right radial artery. Nitroglycerine and Verapamil were given intraarterial through the sheath. Versacore wire advanced under fluoroscopy 5F FL 4 diagnostic catheter engaged Left Main Coronary Artery. 5F FR 4 diagnostic catheter engaged Right Coronary Artery Multiple orthogonal angiogram obtained and reviewed Hemostasis was achieved by application of TR band. Post Operative Condition: Stable No significant blood loss Disposition: Home Plan: The patient will be monitored in the recovery area. The above findings were discussed with the referring physician. Continue aggressive medical therapy and risk factor modification. ? Irais Tilley M.D. Interventional Cardiology
== END 2023-07-23 15:25 | disposition home or self-care (01) ==
PROVIDERS: PCP Internal Medicine; Visit Provider Internal Medicine
PROC: (CPT 93454; principal; 2023-07-23 10:00)
DX: I25.10 Atherosclerotic heart disease of native coronary artery without angina pectoris (principal); R93.1 Abnormal findings on diagnostic imaging of heart and coronary circulation; I10 Essential (primary) hypertension; G40.119 Localization-related (focal) (partial) symptomatic epilepsy and epileptic syndromes with simple partial seizures, intractable, without status epilepticus; Z87.891 Personal history of nicotine dependence; F12.90 Cannabis use, unspecified, uncomplicated
CPT/HCPCS: 36415; 80048; 85025; 85610; 93454; C1769; C1887; C1894; J1644; J2250; J2305; J3010; J7040

== ENCOUNTER 2024-03-18 07:56 | Outpatient (CLI) | payer OTHER, SELFPAY ==
[2024-03-18 08:15] LABS: Basophils Absolute Auto 0.1 K/mm3 (0.0-0.1); Basophils Percent Auto 0.7 % (0.2-1.2); Eosinophils Absolute Auto 0.4 K/mm3 (0-0.3); Immature Granulocyte Absolute 0.02 K/mm3 (0.00-0.031); Immature Granulocyte Percent A 0.2 % (0-0.5); Lymphocytes Percent Auto 27.8 % (18.3-44.2); Mean Corpuscular HGB Conc 34.1 g/dl (32-36); Mean Corpuscular Hemoglobin 31.7 pg (26-34); Mean Platelet Volume 9.3 fl (7.4-10.4); Monocytes Absolute Auto 0.7 K/mm3 (0.1-0.6); Neutrophils Absolute Auto 4.8 K/mm3 (1.3-6.7); Neutrophils Percent Auto 58.3 % (45.5-73.1); Platelet Count Result 219 k/mm3 (150-375); Red Blood Count 4.73 M/mm3 (4.6-6.20); Red Cell Distribution Width 11.8 % (11.5-14.5); White Blood Count 8.3 K/mm3 (4.5-10.0)
[2024-03-18 08:52] LABS: Alanine Aminotransferase 44 U/L (6-50); Albumin Level 4.5 g/dL (3.5-5.1); Alkaline Phosphatase 48 U/L (38-126); Anion Gap 6 mmol/L (4-12); Aspartate Amino Transferase 40 U/L (17-59); Bilirubin,Total 0.4 mg/dL (0.2-1.3); Blood Urea Nitrogen 11 mg/dL (9-20); Calcium 9.5 mg/dL (8.4-10.2); Carbon Dioxide 29 mmol/L (22-30); Chloride 106 mmol/L (98-107); Cholesterol 130 mg/dL (0-200); Estimated Glomerular Filt Rate > 60; Glucose 119 mg/dL (65-110); HDL Direct 52 mg/dL; Potassium 4.3 mmol/L (3.4-5.0); Sodium 141 mmol/L (137-145); Triglycerides 62 mg/dL (<150)
[2024-03-18 09:02] LABS: LDL Cholesterol Direct 58 mg/dL
[2024-03-18 09:09] LABS: Free T4 Free Thyroxine 0.88 ng/mL (0.78-2.19)
[2024-03-18 09:22] LABS: Prostate Specific Antigen 0.5 ng/mL (< OR = 4.0); Thyroid Stimulating Hormone 0.693 uIU/mL (0.465-4.680)
== END 2024-03-18 07:57 | disposition home or self-care (01) ==
LOC: ANHLAB 07:58
PROVIDERS: PCP Internal Medicine; Visit Provider Internal Medicine
DX: E78.5 Hyperlipidemia, unspecified (principal); I10 Essential (primary) hypertension; N42.9 Disorder of prostate, unspecified
CPT/HCPCS: 36415; 80053; 80061; 84153; 84439; 84443; 85025

== ENCOUNTER 2024-07-28 00:31 | Day surgery (SDC) | payer OTHER, SELFPAY ==
[2024-07-19 08:53] VITALS: BMI 29.2
--- OUTSIDE RECORDS SUMMARY | 2024-07-28 00:33 | XMS_ITS | Clinical Summary ---
Author Organization [facility] [address] Address [address] [place] [address] Care Team Providers Care Interlibrary Loan Specialist Name Role Phone Tunde Mcdaniel MD Primary Care Provider Allergies Active Allergy Reactions Criticality Noted Date Comments Ampicillin Unknown 06/04/2023 Medications aspirin 81 mg enteric coated tabletIndicatio ns:Coronary artery disease involving [place] coronary artery of [place] heart without angina pectoris Take 1 tablet (81 mg total) by mouth daily 30 tablet 11 07/11/2023 Active nitroglycerin (NITROSTAT) 0.4 mg SL tabletIndicatio ns:acute episode of anginal pain Place 1 tablet (0.4 mg total) under the tongue every 5 (five) minutes as needed for chest pain May repeat dose q 5 min, up to 3 doses total 25 tablet 1 07/11/2023 Active rosuvastatin (CRESTOR) 10 mg tabletIndicatio ns:Coronary artery disease involving [place] coronary artery of [place] heart without angina pectoris Take 1 tablet (10 mg total) by mouth daily 90 tablet 3 09/23/2023 Active levETIRAcetam XR (KEPPRA XR) 500 mg 24 hr tablet Take 4 tablets (2,000 mg total) by mouth daily Active losartan (COZAAR) 50 mg tablet Take 1 tablet (50 mg total) by mouth daily Active Active Problems Problem Noted Date Diagnosed Date Left carotid bruit 04/08/2024 Coronary artery disease invo lving [place] coronary artery of [place] heart without angina pectoris 07/11/2023 Tobacco abuse 07/11/2023 FRANKIE (obstructive sleep apnea) 07/11/2023 Abnormal cardiovascular stress test 07/11/2023 Hyperlipidemia LDL goal <70 07/11/2023 Elevated troponin 07/11/2023 Nonrheumatic aortic valve insufficiency 06/04/19 24 Nonrheumatic aortic valve stenosis 06/04/2023 Lipid screening 06/04/2023 Essential hypertension 06/04/2023 Encounters Date Type Department Care Team Description 04/29/2024 9:00 AM REWORK MACHINE OPERATOR Ancillary Procedure [facility] Ve[facility] Surgery at [address] [place] [address] Left carotid bruit from Last 3 Months Surgical History Surgery Date Site/Laterality Comments COLON SURGERY Medical History Medical History Date Comments Elevated troponin level Pneumonia Aortic insufficiency with aortic stenosis Hypertension Family History Medical History Relation Name Comments Heart disease Father Hypertension Father Thyroid disease Father Diabetes Mother Relation Name Status Comments Father Alive Mother Alive Social History Tobacco Use Types Packs/Day Years Used Date Smoking Tobacco: Former Cigarettes Q uit: 05/06/2023 Passive Smoke Exposure: Past Smokeless Tobacco: Never Tobacco Cessation:Counseling Given: Not Answered AUDIT-C Answer Date Recorded Q1: How often do you have a drink containing alc ohol? 2-4 times a month 07/11/2023 Q2: How many drinks containi ng alcohol do you have on a typical day when you are drinking? 3 or 4 07/11/2023 Q3: How often do you have si x or more drinks on one occasion? Less than monthly 07/11/2023 Sex and Gender Information Value Date Recorded Sex Assigned at Not on file Legal Sex Male 11:25 AM REWORK MACHINE OPERATOR Gender Identity Not on file Sexual Orientation Not on file Obstetrics History Last Filed Vital Signs Vital Sign Reading Time Taken Comments Blood Pressure 138/82 04/08/2024 8:22 AM REWORK MACHINE OPERATOR Pulse 68 04/08/2024 8:22 AM REWORK MACHINE OPERATOR Temperature - - Respiratory Rate - - Oxygen Saturation 96% 04/08/2024 8:22 AM REWORK MACHINE OPERATOR Inhaled Oxygen Concentration - - Weight 94.8 kg (209 lb) 04/08/2024 8:22 AM REWORK MACHINE OPERATOR Height 182.9 cm (6') 04/08/2024 8:22 AM REWORK MACHINE OPERATOR Body Mass Index 28.35 04/08/2024 8:22 AM REWORK MACHINE OPERATOR Plan of Treatment Health Maintenance Due Date Last Done Comments Colon Cancer Screening-Colonoscopy 1970 Depression Screening 1970 Hepatitis C Screening 1970 Prostate Cancer Screening-PSA 1969 DTaP/Tdap/Td Vaccine (1 - Tdap) 1980 Hepatitis B Screening 12/03/1987 Regular Well Visit/Exam 18-64 12/03/1987 Zoster Vaccine (1 of 2) 12/03/2019 Covid-19 Vaccine (3 - 2023-2 5 season) 2024 08/22/2020, 08/01/2020 Influenza Vaccine (#1) 2024 02/05/2020 Pneumococcal vaccine <65 Aged Out No longer eligible based on patient's age to complete this topic Procedures Procedure Name Priority Date/Time Associated Diagnosis Comments US CAROTIDS DUPLEX BILATERAL Schedule Routine, Read Routine (OP Routine) 04/29/2024 9:01 AM REWORK MACHINE OPERATOR Left carotid bruit from Last 3 Months Results * US Carotids Duplex Bilateral (04/29/2024 9:01 AM REWORK MACHINE OPERATOR) Anatomical Region Laterality Modality Vascular Bilateral Ultrasound 04/29/2024 8:45 AM REWORK MACHINE OPERATOR Narrative 04/30/2024 12:29 PM REWORK MACHINE OPERATOR Vascular & Vein Surgery [address] [place] [address] Carotid Duplex Ultrasound Report Patient Name: BERNARD TAN M. : 1970 (53y 4m) Study Date: 04/29/2024 8:45:43 AM Gender: M Corrections Corporal: Location: [facility] Ref Provider: AVIVA MOE Quality: Adequate Order Provider: AVIVA MOE PROCEDURES: Carotid Report: Carotid duplex examination of the extracranial arteries was performed using 2D, color and spectral Doppler. INDICATIONS: R09.89 Other specified symptoms and signs involving the circulatory and respiratory systems. HISTORY: Hypertension. Hyperlipidemia. Coronary artery disease. Former smoker. COMPARISONS: No previous exams. Prior CTA 06/30/23. MEASUREMENTS: Right Value Left Value RT Prox CCA PSV 106 cm/sec LT Prox CCA PSV 111 cm/sec RT Prox CCA EDV 21 cm/sec LT Prox CCA EDV 21 cm/sec RT Distal CCA PSV 76 cm/sec LT Distal CCA PSV 79 cm/sec RT Distal CCA EDV 20 cm/sec LT Distal CCA EDV 19 cm/sec RT Prox ICA PSV 74 cm/sec LT Prox ICA PSV 71 cm/sec RT Prox ICA EDV 20 cm/sec LT Prox ICA EDV 21 cm/sec RT Mid ICA PSV 79 cm/sec LT Mid ICA PSV 94 cm/sec RT Mid ICA EDV 28 cm/sec LT Mid ICA EDV 27 cm/sec RT Distal ICA PSV 81 cm/sec LT Distal ICA PSV 71 cm/sec RT Distal ICA EDV 26 cm/sec LT Distal ICA EDV 20 cm/sec RT ECA Prx PSV 81 cm/sec LT ECA Prx PSV 97 cm/sec RT ICA/CCA 0.97 ratio LT ICA/CCA 0.90 ratio Rt Vert Dst PSV 40 cm/sec Lt Vert Dst PSV 64 cm/sec - FINDINGS: Rt Common Carotid Artery: Duplex imaging of the right common carotid artery is within normal limits without evidence of atherosclerotic disease. Rt Internal Carotid Artery: The plaque in the right internal carotid artery appears to be heterogeneous and smooth. Atherosclerotic changes of the right internal carotid artery without hemodynamically significant Doppler findings. <50% stenosis. Rt External Carotid Artery: Patent right external carotid artery with evidence of atherosclerotic disease present. Rt Vertebral Artery: The right vertebral artery is patent with antegrade flow. Lt Common Carotid Artery: Duplex imaging of the left common carotid artery is within normal limits without evidence of atherosclerotic disease. Lt Internal Carotid Artery: The plaque in the left internal carotid artery appears to be heterogeneous and smooth. Atherosclerotic changes of the left internal carotid artery without hemodynamically significant Doppler findings. <50% stenosis. Lt External Carotid Artery: The left external carotid artery is patent without evidence of atherosclerotic plaque. Lt Vertebral Artery: The left vertebral artery is patent with antegrade flow. Comments: Brachial artery systolic blood pressure is 118 on the right, 125 on the left. CONCLUSIONS: 1. No evidence of hemodynamically significant disease of the bilateral extracranial carotid system. ATTESTATION: I have reviewed and interpreted the pertinent images and measurements of this study. I attest to the conclusions in the final report that is provided above. Electronically Signed By: Eric Sanchez MD B 04/30/2024 12:29:05 PM REWORK MACHINE OPERATOR Procedure Note Eric Sanchez MD - 04/30/2024 Vascular & Vein Surgery [address] [place] [address] Carotid Duplex Ultrasound Report Patient Name: BERNARD TAN M. : 1970 (53y 4m) Study Date: 04/29/2024 8:45:43 AM Gender: M Corrections Corporal: Location: [facility] Provider: AVIVA MOE Quality: Adequate Order Provider: AVIVA MOE PROCEDURES: Carotid Report: Carotid duplex examination of the extracranial arterieswas performed using 2D, color and spectral Doppler. INDICATIONS: R09.89 Other specified symptoms and signs involving the circulatory andrespiratory systems. HISTORY: Hypertension. Hyperlipidemia. Coronary artery disease. Former smoker. COMPARISONS: No previous exams. Prior CTA 06/30/23. MEASUREMENTS: Right Value Left Value RT Prox CCA PSV 106 cm/sec LT Prox CCA PSV 111 cm/sec RT Prox CCA EDV 21 cm/sec LT Prox CCA EDV 21 cm/sec RT Distal CCA PSV 76 cm/sec LT Distal CCA PSV 79 cm/sec RT Distal CCA EDV 20 cm/sec LT Distal CCA EDV 19 cm/sec RT Prox ICA PSV 74 cm/sec LT Prox ICA PSV 71 cm/sec RT Prox ICA EDV 20 cm/sec LT Prox ICA EDV 21 cm/sec RT Mid ICA PSV 79 cm/sec LT Mid ICA PSV 94 cm/sec RT Mid ICA EDV 28 cm/sec LT Mid ICA EDV 27 cm/sec RT Distal ICA PSV 81 cm/sec LT Distal ICA PSV 71 cm/sec RT Distal ICA EDV 26 cm/sec LT Distal ICA EDV 20 cm/sec RT ECA Prx PSV 81 cm/sec LT ECA Prx PSV 97 cm/sec RT ICA/CCA 0.97 ratio LT ICA/CCA 0.90 ratio Rt Vert Dst PSV 40 cm/sec Lt Vert Dst PSV 64 cm/sec - FINDINGS: Rt Common Carotid Artery: Duplex imaging of the right common carotidartery is within normal limits without evidence of atherosclerotic disease. Rt Internal Carotid Artery: The plaque in the right internal carotidartery appears to be heterogeneous and smooth. Atherosclerotic changes of the right internalcarotid artery without hemodynamically significant Doppler findings. <50% stenosis. Rt External Carotid Artery: Patent right external carotid artery withevidence of atherosclerotic disease present. Rt Vertebral Artery: The right vertebral artery is patent with antegradeflow. Lt Common Carotid Artery: Duplex imaging of the left common carotid arteryis within normal limits without evidence of atherosclerotic disease. Lt Internal Carotid Artery: The plaque in the left internal carotid arteryappears to be heterogeneous and smooth. Atherosclerotic changes of the left internalcarotid artery without hemodynamically significant Doppler findings. <50% stenosis. Lt External Carotid Artery: The left external carotid artery is patentwithout evidence of atherosclerotic plaque. Lt Vertebral Artery: The left vertebral artery is patent with antegradeflow. Comments: Brachial artery systolic blood pressure is 118 on the right, 125on the left. CONCLUSIONS: 1. No evidence of hemodynamically significant disease of the bilateralextracranial carotid system. ATTESTATION: I have reviewed and interpreted the pertinent images and measurements ofthis study. I attest to the conclusions in the final report that is provided above. Electronically Signed By: Eric Sanchez MD [facility] 04/30/2024 12:29:05 PM REWORK MACHINE OPERATOR us Aviva Moe MD IMG US PROCEDURES Final R esult from Last 3 Months Insurance [employer] HMO/POS [employer] HMO/POS Care Teams Interlibrary Loan Specialist Relationship Specialty Start Date End Date Tunde Mcdaniel MD [address] [facility] [address] [place] [address] PCP - General Internal Medicine 05/07/23
--- OUTSIDE RECORDS SUMMARY | 2024-07-28 00:33 | XMS_ITS | Data Portability ---
Author Organization [place] - [facility] [employer], Main Office Address [address] [place] [address] Assessment No assessment recorded. Plan of Treatment Reminders Order Date Submit Date Provider Last Modified By Organization Details Last Modified Time Details Appointments None recorded . Lab PSA, serum or plasma 03/09/20 [employer] [facility], [address], [address], [place], [address], 4 12:25:38 CBC w/ auto diff 03/09/20 [employer] [facility], [address], [address], [place], [address], 4 09:59:17 CMP, serum or plasma 03/09/20 [employer] [facility], [address], [place], [address], 4 12:23:38 lipid panel, serum 03/09/20 [facility] [facility], [address], [place], [address], 4 12:25:38 T4, free, serum 03/09/20 [employer] [facility], [address], [place], [address], 4 09:53:34 TSH, serum or plasma 03/09/20 [employer] [facility], [address], [place], [address], 12:25:38 Referral None recorded . Procedures None recorded . Surgeries None recorded . Imaging None recorded . Medication Orders None recorded . Patient TargetsNo targets recorded. Patient Instructions Encounter Date Encounter Id Patient Instructions Last Modified By Organization Details Last Modified Time 06/25/2023 [id number] Follow-up hypertension and aortic valve stenosis. Clinically doing well. Will increase the losartan from 25 mg to 50 mg daily. Instructed the patient to drop by in 48 hours in the end result office to have a recheck. Is scheduled for rather significant dental work next week would like to get this under control before that happens. Otherwise appears to be doing reasonably well. Is following up on a regular basis with Cardiology. Portions of the record may have been created with voice recognition software. Occasional wrong-word or zvtgf-w-lcgz substitutions may have occurred due to the inherent limitations of voice recognition software. Read the chart carefully and recognize, using context, where substitutions have occurred. [email or web address] Not available 06/25/2023 14:54:00 07/07/2023 [id number] Follow-up for seizure disorder and hypertension clinically stable. Just discharged from the hospital with a presumptive diagnosis of sepsis which are not quite sure how the dry this since the patient had a witnessed seizure in the emergency room. There was no infectious etiology identified. And was not febrile etc.. Did have an elevated lactic acid level likely secondary to the seizure and also elevated white count likely again secondary to the seizure. Otherwise is clinically stable at this time is being followed by Neurology and has a further testing schedule a Christopher next week. Otherwise is doing well otherwise. Follow-up in his regular scheduled appointment. Portions of the record may have been created with voice recognition software. Occasional wrong-word or tshof-g-yuzw substitutions may have occurred due to the inherent limitations of voice recognition software. Read the chart carefully and recognize, using context, where substitutions have occurred. Keep Appt: Fri 01:50 PM [employer] [email or web address] Not available 07/07/2023 12:08:01 07/25/2023 [id number] Essential hypertension currently clinically stable. 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 Already has a follow-up appointment. Keep Appt: Fri 01:50 PM [employer] Portions of the record may have been created with voice recognition software. Occasional wrong-word or nsyaw-c-mkhm substitutions may have occurred due to the inherent limitations of voice recognition software. Read the chart carefully and recognize, using context, where substitutions have occurred. [email or web address] Not available 07/25/2023 15:17:09 11/04/2023 [id number] Follow-up for essential hypertension, aortic stenosis, hyperlipidemia and seizure disorder all clinically stable. Is followed on a regular basis by Cardiology. He is scheduled to see Neurology within the next month. Will continue on current Rx follow-up in four months. Next Appointment: 4 Months Approximate Date: 03/03/2024 Portions of the record may have been created with voice recognition software. Occasional wrong-word or pqjmk-k-ktio substitutions may have occurred due to the inherent limitations of voice recognition software. Read the chart carefully and recognize, using context, where substitutions have occurred. [email or web address] Not available 11/04/2023 15:41:04 03/09/2024 [id number] Follow-up for essential hypertension, hyperlipidemia, aortic stenosis as well as seizure disorder all clinically stable. Check blood work consisting of CBC, CMP, lipid, thyroid and PSA. Also needs a colonoscopy or Cologuard test. Will continue on current Rx follow-up in six months Additional Orders - Directives - Recommendations 1. Cologuard Follow Up: 6 Months Approximate Date: 09/05/2024 Portions of the record may have been created with voice recognition software. Occasional wrong-word or xacuz-x-ofvt substitutions may have occurred due to the inherent limitations of voice recognition software. Read the chart carefully and recognize, using context, where substitutions have occurred. [email or web address] Not available 03/09/2024 15:16:03 Reason for Referral None Reported. Results Created Date Observation Date Name Description Value Unit Range Abnormal Flag Note LastModifiedBy Organization Detail LastModifiedTime 03/23/20 24 03/23/2024 COLOG UARD cologuard result reportable POSITI VE negati ve abnormal POSIT ZAHEER TEST RESUL T. A posit zaheer Colog uard resul t shoul d be follo wed with a colon oscop y or visua l exami natio n of the colon . The yamileth l value (refe rence range ) for this assay is negat zaheer. TEST DESCR IPTIO N: [place] site algor ithmi c devi sis of stool DNA-b iomichael kers with hemog lobin immun oassa y. Quant itati ve value s of indiv idual bioma rkers are not repor table and are not assoc iated with indiv idual bioma rker resul t refer ence range s. Colog uard is inten ded for color ectal cance r scree colton of adult s of eithe r sex, 45 years or older , who are at [facility] for color ectal cance r (CRC) . Colog uard has been appro orly for use by the U.S. FDA. The perfo rmanc e of Colog uard was estab lishe d in a cross secti onal study of [facility] adult s aged 50-84 . Colog uard perfo rmanc e in patie nts ages 45 to 49 years was estim ated by sub-g roup devi sis of near- age group s. Colon oscop ies perfo rmed for a posit zaheer resul t may find as the most clini yao signi fican t lesio n: color ectal cance r [4.0% ], advan brandy adeno ma (incl uding sessi le thiago nova polyp s great er than or equal to 1cm diame ter) [20%] or non- advan brandy adeno ma [31%] ; or no color ectal neopl gerhard [45%] . These estim ates are deriv ed from a prosp ectiv e cross -sect ional scree colton study of ,00 0 indiv idual s at [facility] risk for color ectal cance r who were scree daron with both Colog uard and colon oscop y. (Rebecca Bosch et al, N Engl J Med 2014; 370(1 4):12 86-12 97.) Colog uard may produ ce a false negat zaheer or false posit zaheer resul t (no color ectal cance r or preca ncero us polyp prese nt at colon oscop y follo w up). A negat zaheer Colog uard test resul t does not guara ntee the absen ce of CRC or advan brandy adeno ma (pre- cance r). The curre nt Colog uard scree colton inter niki is every 3 years . ([place] calles Cance r Socie ty and U.S. Multi -Soci ety Task Force ). Colog uard perfo rmanc e data in a 10,00 0 patie nt pivot al study using colon oscop y as the refer ence metho d can be acces sed at the follo wing locat ion: www.e xactl abs.c om/re sulargentina . Addit ional descr iptio n of the Colog uard test proce ss, warni ngs and preca ution s can be found at www.c ologu jaison.c om. Not Available [employer] (Cologuard Orders Only) [address], [place], [address], 04/01/2024 07:32:06 06/26/19 24 06/26/2023 XR, chest , 1 view No observ ation record ed. [address] [facility], [place], [address], 06/26/2023 08:30:20 06/26/19 24 06/26/2023 CT, brain , w/o contr ast No observ ation record ed. [address] [facility], [place], [address], 06/26/2023 10:09:18 06/26/19 24 06/26/2023 XR, lumba r spine No observ ation record ed. [email or web address] [address] [facility], [place], [address], 06/30/2023 12:08:33 06/27/19 24 06/27/2023 marni nuous EEG monit luis m craig al compo nent; 12-26 hrs, with VEEG (PROC ) No observ ation record ed. [address] [facility], [place], [address], 06/27/2023 14:24:53 06/30/19 24 06/30/2023 CT, angio gram, neck, w/ contr ast No observ ation record ed. [place] [address], [place], [address], 07/01/2023 07:52:08 Result Notes None recorded. Problems Name Problem SNOMED Code Status Onset Date Resolution Date Notes Provider Name and Address Organization Details Recorded Time Chest wall pain 798848431 Active 2016 Not Available [facility] 3 15:25:31 Lateral epicondylitis 375618427 Active Not Available [facility] 3 15:25:31 Shoulder strain 006888626 Active Not Available [facility] 3 15:25:31 Abscess of scrotum 77456559 Active Not Available [facility] 3 15:25:31 Multiple joint pain 25519560 Active 2016 Not Available [facility] 3 15:25:31 Tenosynovitis of wrist 674139886 Active Not Available [facility] 3 15:25:31 Aortic valve stenosis 88314412 Active 2023 Tunde Mcdaniel MD [address], [address], [place], [address] , [email or web address] 4 16:48:17 Essential hypertension 43782744 Active 2023 Tunde Mcdaniel MD [address], [address], [place], [address] , [email or web address] 4 16:48:25 Confusional state 174234431 Active 2023 Tunde Mcdaniel MD [address], [address], [place], [address] , [employer] [email or web address] 4 16:56:11 Seizure disorder 153782361 Active 2023 Tunde Mcdaniel MD [address], [address], [place], [address] , [employer] [facility] [email or web address] 4 12:04:01 Hyperlipidemi a 42851351 Active 2023 RENNY Baum, [facility] 4 15:05:45 Furuncle 322632127 Active 2023 Tunde Mcdaniel MD [address], [facility] [address], [place], [address] , [facility] 4 10:45:04 Disorder of prostate 95123965 Active 2023 Tunde Mcdaniel MD [address], [facility] [address], [place], [address] , [facility] 4 15:15:47 Colorectal cancer detected by DNA-based stool screening 304561575 Active 2023 RENNY Baum, [facility] 12:28:58 Problem Notes None recorded. Procedures Surgical History None recorded. Imaging Results Imaging Date Name Status LastModified by Organization Details LastModified Time 06/26/2023 XR, chest, 1 view completed [address], [address], 06/26/2023 08:30:20 06/26/2023 CT, brain, w/o contrast completed [address], [address], 06/26/2023 10:09:18 06/26/2023 XR, lumbar spine completed [email or web address] [address], [address], 06/30/2023 12:08:33 06/27/2023 continuous EEG monitoring, professional component; 12-26 hrs, with VEEG (PROC) completed [address] [place] [address], [address], 06/27/2023 14:24:53 06/30/2023 CT, angiogram, neck, w/ contrast completed [address] [place] [address], [address], 07/01/2023 07:52:08 Procedure Notes None recorded. Medical Equipment None Reported. Allergies Allergen ID Allergen Name Allergen Category Reaction Reaction Severity Criticality Documentation Date Start Date Code Code System Note Provider Name and Address Organization Details Recorded Time 34788 amoxicill in medicatio n rash mild unabletoasse ss 12/11/2023 723 RxNorm Tunde Mcdaniel MD [address], [address], [place], [address], [facility] 4 10:44:57 Medications Name Sig Start Date Stop Date Status Note LastModified by Organization Details LastModified Time losartan 50 mg tablet TAKE 1 TABLET BY MOUTH EVERY DAY 2023 active Not Available Not Available Not Avai lable azithromycin 250 mg tablet TAKE 1 TABLET BY MOUTH DAILY 05/14 completed Not Available Not Available Not Available levetiraceta m 500 mg tablet TAKE 2 TABLETS BY MOUTH EVERY 12 HOURS 03/09 completed Not Available Not Available Not Available valacyclovir 1 gram tablet TAKE 1 TABLET BY MOUTH EVERY 8 HOURS FOR 10 DAYS 07/24 completed Not Available Not Available Not Available sulfamethoxa zole 800 mg-trimethop rim 160 mg tablet TAKE 1 TABLET BY MOUTH EVERY 12 HOURS FOR 10 DAYS 03/09 completed Not Available Not Available Not Available aspirin 81 mg tablet,delay ed release TAKE 1 TABLET BY MOUTH DAILY active Not Available Not Available No t Available amoxicillin 500 mg tablet TAKE 1 TABLET BY MOUTH EVERY 8 HOURS 11/03 completed Not Available Not Available Not Available losartan 25 mg tablet TAKE 2 TABLETS BY MOUTH DAILY 07/24 completed Not Available Not Available Not Available nitroglyceri n 0.4 mg sublingual tablet 07/24 completed Not Available Not Available Not Available lorazepam 1 mg tablet take one daily at bedtime 05/14 completed Not Available Not Available Not Available cefdinir 300 mg capsule TAKE 1 CAPSULE BY MOUTH EVERY 12 HOURS FOR 4 DAYS 05/14 completed Not Available Not Available Not Available Ambien 5 mg tablet Take 1 tablet every day by oral route. 05/14 completed Not Available Not Available Not Available naproxen 500 mg tablet TAKE 1 TABLET BY MOUTH TWICE DAILY 05/14 completed Not Available Not Available Not Available rosuvastatin 10 mg tablet TAKE 1 TABLET BY MOUTH EVERY DAY active Not Available Not Available No t Available levetiraceta m ER 500 mg tablet,exten ded release 24 hr TAKE 4 TABLETS BY MOUTH EVERY DAY active Not Available Not Available No t Available [facility] 120 mg tablet,exten ded release TAKE 1 TABLET BY MOUTH TWICE DAILY FOR 7 DAYS 11/03 completed Not Available Not Available Not Available Vitals Date Recorded Body height Body mass index (BMI) Body weight Heart rate Body temperature Oxygen saturation Oxygen saturation in Arterial blood by Pulse oximetry Systolic blood pressure Diastolic blood pressure Provider Name and Address Organization Details Last Updated DateTime 4 180.34 cm 27.5 kg/m2 61622.7 g 69 /min 97 [degF] 96 % 96 % 142 mm[Hg] 74 mm[Hg] [employer] 4 14:42:58 Date Recorded Body height Body mass index (BMI) Body weight Heart rate Body temperature Oxygen saturation Oxygen saturation in Arterial blood by Pulse oximetry Systolic blood pressure Diastolic blood pressure Provider Name and Address Organization Details Last Updated DateTime 4 180.34 cm 27.7 kg/m2 81539.0 9 g 71 /min 97 [degF] 95 % 95 % 104 mm[Hg] 60 mm[Hg] Maida [employer] 4 11:53:02 Date Recorded Body height Body mass index (BMI) Body weight Heart rate Body temperature Oxygen saturation Oxygen saturation in Arterial blood by Pulse oximetry Systolic blood pressure Diastolic blood pressure Provider Name and Address Organization Details Last Updated DateTime 4 180.34 cm 27.9 kg/m2 37121.4 7 g 68 /min 97 [degF] 96 % 96 % 108 mm[Hg] 60 mm[Hg] Maida [employer] 4 14:44:15 Date Recorded Body height Body mass index (BMI) Body weight Heart rate Body temperature Oxygen saturation Oxygen saturation in Arterial blood by Pulse oximetry Systolic blood pressure Diastolic blood pressure Provider Name and Address Organization Details Last Updated DateTime 4 180.34 cm 27.9 kg/m2 39836.4 7 g 55 /min 97.7 [degF] 97 % 97 % 120 mm[Hg] 70 mm[Hg] SUMI Me[employer] 4 15:06:40 Date Recorded Body height Body mass index (BMI) Body weight Heart rate Body temperature Oxygen saturation Oxygen saturation in Arterial blood by Pulse oximetry Systolic blood pressure Diastolic blood pressure Provider Name and Address Organization Details Last Updated DateTime 4 180.34 cm 28.2 kg/m2 04584.6 6 g 71 /min 97 [degF] 97 % 97 % 130 mm[Hg] 70 mm[Hg] Kaylie Jesus [facility] [employer] [facility] 4 15:00:50 Social History None recorded. Functional Status None recorded. Mental Status None recorded. Family History Nothing Reported Notes:Mother 74 HTN, Carcino ma of Breast Father 75 high cholesterol and Thyroid nodule One brother living and in good health Two sisters living and in good health Medical History Condition Response BLINDNESS N NERVE DISEASE N RHEUMATIC FEVER N BLADDER PROBLEMS N KIDNEY STONES N MRSA N OTHER # 1 N POLIO N LUNG DISEASE/DISORDER N HISTORY OF DRUG ABUSE N RADIATION / CHEMOTHERAPY N COPD N Other # 2 N BLOOD DISEASES N EAR OR HEARING PROBLEMS N MUMPS N SHINGLES N DEPRESSION (INCLUDING POST ) N BOWEL PROBLEMS N FAILED BACK SYNDROME N STROKE/TIA N ULCERS N BENIGN PROSTATIC HYPERPLASIA N MEASLES N HYPOTENSION N MYOCARDIAL INFARCTION N OBESITY N GERD/NAUSEA N ANEURYSM N URINARY/BLADDER/KIDNEY PROBLEMS N CORONARY ARTERY DISEASE (CAD) N Do you have Advance directive? N ADDICTION CONCERNS N Impotence N ENDOMETRIOSIS N USE OF BLOOD THINNERS N SKIN PROBLEMS N GASTROINTESTINAL DISORDER N PERIPHERAL VASCULAR DISEASE N MUSCLE,JOINT OR BONE PROBLEMS N GASTROINTESTINAL BLEEDING N BLOOD CLOTS N ASTHMA N CATARACTS N Abdominal Pain N ERECTILE DYSFUNCTION N ARTERIAL INSUFFICIENCY N VARICOSITIES N GI PROBLEMS N Low Testosterone N INFERTILITY N AIDS/HIV N CHEMOTHERAPY / RADIATION N LIVER DISEASE N MALE HYPOGONADISM N HYPERTENSION Y Deficiency N TOURETTE'S N ANXIETY DISORDER N BLOOD TRANSFUSION N ANEMIA/BLOOD DISORDER N CHRONIC EAR INFECTIONS N TUBERCULOSIS N GLAUCOMA N FOOT PROBLEM N DIVERTICULITIS N SLEEP APNEA N CHICKENPOX N BACK INJECTIONS N ALLERGIES/HAYFEVER N INFECTIOUS DISEASE N PROSTATE N HEART ARRHYTHMIA N ESRD N INSOMNIA N HIGH CHOLESTEROL / HYPERLIPIDEMIA N EYE PROBLEMS N HYPERTHYROIDISM N PVD N EDEMA N CHRONIC PAIN SYNDROME N HYPOTHYROIDISM N CONSTIPATION N CAROTID BLOCKAGE N BACK / NECK PROBLEMS N HAVE YOU BEEN HOSPITALIZED OR SEEN IN [facility] IN THE PAST YEAR ? N ATHEROSCLEROSIS N BREAST PROBLEMS N DIALYSIS N POLYCYSTIC OVARIES N ECZEMA N OSTEOPOROSIS N ARTHRITIS N NO SIGNIFICANT PAST MEDICAL HISTORY N APPENDICITIS N DIABETES, TYPE N BAD TEETH N VON WILLIBRAND'S DISEASE N ENT N HEARTBURN / REFLUX N GI N AUTISM SPECTRUM DISORDER (ASD) N POST LAMINECTOMY SYNDROME N HEPATITIS / LIVER DISEASE N GOUT N SLEEP DISORDER N ALZHEIMER'S DISEASE N Brain Problems N DEMENTIA N HERPES N SEIZURES/EPILEPSY N HEADACHES/MIGRAINES N VASCULAR DISEASE N PACEMAKER N DIZZINESS N HEART DISEASE/HEART PROBLEMS N KIDNEY DISEASE N MULTIPLE SCLEROSIS N NEUROPSYCHOLOGICAL N CANCER: SPECIFY N CARDIAC ARRHYTHMIA N ATRIAL FIBRILLATION N Gall Stones N PULMONARY EMBOLISM N AUTOIMMUNE DISEASE N Past Encounters Encounter ID Performer Location Encounter Start Date Encounter Closed Date Diagnosis/Indication Diagnosis SNOMED-CT Code Diagnosis ICD10 Code Diagnosis Note [id number] Tunde Mcdaniel MD [facility] Internal Med [facility] [address] [address] 05/14/2023 16:36:08 05/14/2023 17:15:36 Adult health examination 378693486 Z00.00 Depression screening 171 611457 Z13.31 Confusional state 651129 003 F44.89 Aortic valve stenosis 60 897862 I35.0 Essential hypertension 45554584 I10 [id number] Tunde Mcdaniel MD [facility] Internal Med [facility] [address] [address] 06/25/2023 14:27:04 06/25/2023 14:59:25 Essential hypertension 45652957 I10 Aortic valve stenosis 60 889882 I35.0 [id number] Tunde Mcdaniel MD [facility] Internal Med [facility] [address] [address] 07/07/2023 11:52:03 07/08/2023 09:01:26 Seizure disorder 546352699 G40.766 [id number] Tunde Mcdaniel MD [facility] Internal Med [place] [address] [place] [address] 07/25/2023 14:25:39 07/25/2023 15:24:44 Essential hypertension 21683890 I10 [id number] Tunde Mcdaniel MD [facility] Internal Med [place] [address] [address] [place] [address] 11/04/2023 15:00:03 11/04/2023 15:45:19 Essential hypertension 78594046 I10 Aortic valve stenosis 60 584691 I35.0 Hyperlipidemia 44465413 E78.5 Seizure disorder 5095122 02 G40.899 [id number] Tunde Mcdaniel MD [facility] Internal [facility] [place] [address] [facility] [place] [place] [address] 03/09/2024 14:33:41 03/09/2024 15:21:05 Essential hypertension 42372138 I10 Hyperlipidemia 65395941 E78.5 Aortic valve stenosis 60 187095 I35.0 Seizure disorder 7585137 02 G40.909 Disorder of prostate 302 06385 N42.9 Health Concerns Section Related Observation LastModified by Organization Detai ls LastModified Time None Recorded Concern Status LastModified by Organization Details LastModified Time None Recorded Advance Directives Directive None Recorded Payers Encounter Date Sequence Insurance Name Policy Number Policy Carrillo Covered Member ID Carrillo Member ID Guarantor Name 06/25/2023 1 [employer] - [employer] - OPEN CHOICE - NAP (PPO) [id number] Hodan M Fabienne [id number] Bernard Nieto Fabienne 07/07/2023 1 [employer] - [employer] - OPEN CHOICE - NAP (PPO) [id number] Hodan M Fabienne [id number] Bernard Nieto Fabienne 07/25/2023 1 [employer] - [employer] - OPEN CHOICE - NAP (PPO) [id number] Hodan Nieto Fabienne [id number] Bernard Nieto Fabienne 11/04/2023 1 [employer] - [employer] - OPEN CHOICE - NAP (PPO) [id number] Hodan M Fabienne [id number] Bernard Nieto Fabienne 03/09/2024 1 [employer] - [employer] - OPEN CHOICE - NAP (PPO) [id number] Hodan Gerson Fabienne [id number] Bernard Loving Notes Date Note Type Note Provider Name and Address Organization Details Recorded Time 4 text/html Patient Name: Bernard LovingDate Of Service: Friday ( 06.25.2023 ): 1970 Age: 52 Vital Signs:Blood Pressure: Sitting Rt. Arm 142/74Pulse: Sitting 69 /min and RegularRespiratory Rate: 12Height 71 in or 1.8 mWeight 196 lb or 88.9 kgBMI 27.3Temperature: 97 F or 36.1 CPulse Oximetry: 96 % at rest on no oxygen Chief Complaint: Addressed in HPI Problems or conditions discussed in the HPI were the only ones reviewed during the encounter.Only social and family history addressed in the HPI were reviewed during this encounter. Attendant(s): NoneConstitutional and Systemic Symptoms:none Medication Reconciliation: from medication list. [id number]: Echocardiogram estimated ejection fraction greater than 70%. Severe aortic stenosis with peak velocity of 392 centimeters/second. Gradient 40 mmHg estimated valve area 0.8 sq cm. There is mild mitral and tricuspid valve regurgitation. 05-09-2023: LÓPEZ echocardiogram demonstrated some moderate aortic stenosis and regurgitation. Will be followed as an outpatient by Cardiology for follow-up examinations. History of Present Illness #1. Essential Hypertension: Stage: Stage I Interval Neurological Complaints no headaches, dizziness, weakness, visual changes, ataxia, aphasia and apraxia. No shortness of breath, orthopnea or cardiovascular symptoms. No other symptoms related to end organ damage. Pressure has been under excellent control. Currently normal. No other end organ symptoms or findings. Therapy reviewed regarding management of hypertension and includes salt restriction and Medication Consisting of losartan. Will increase the losartan from 25 mg to 50 mg daily. #2. Aortic Stenosis: Symptoms: no cardiac symptoms Hx of calcified aortic stenosis. No interval complaints of any chest pain, shortness of breath, palpitations or syncope. No palpitations. No change in exercise tolerance. Last echocardiogram was less than six months ago. Currently does not need a repeat echocardiogram. Active Medication ListLosartan Potassium 25 MG TABLET Once Daily Surgical [id number] Lap Sigmoidectomy Preventative Testing Confirmed by Our Olylxkm1208/28/2019 ALBUMIN 4.4 G/DL N008/28/2019 PSA 0.3 NG/ML N105/16/2011 COLONOSCOPY 03/16/2022 Social HistoryMarriedSmokes two packs daily for over 15 yearsDrinks sociallyGraphics designerFamily HistoryMother 78 HTN, Carcinoma of BreastFather 79 high cholesterol and Thyroid noduleOne brother living and in good healthTwo sisters living and in good health Tunde Mcdaniel MD [address] [facility] [address], [place], [address], [place] [facility] 06/25/2023 14:54:27 4 text/html Patient Name: Bernard Bowlingte Of Service: Friday ( 07.07.2023 ): 1970 Age: 52 There has been approximately a 2.5 lb weight gain since 06/25/2023. This represents approximately a 1.3% change in weight. Weight change attributable to lifestyle changes. Vital Signs:Blood Pressure: Sitting Rt. Arm 104/60Pulse: Sitting 71 /min and RegularRespiratory Rate: 12Height 71 in or 1.8 mWeight 198.5 lb or 90.0 kgBMI 27.7Temperature: 97 F or 36.1 CPulse Oximetry: 95 % at rest on no oxygen Chief Complaint: Addressed in HPI Problems or conditions discussed in the HPI were the only ones reviewed during the encounter.Only social and family history addressed in the HPI were reviewed during this encounter. Attendant(s): NoneConstitutional and Systemic Symptoms:none Medication Reconciliation: from medication list. [id number]: Echocardiogram estimated ejection fraction greater than 70%. Severe aortic stenosis with peak velocity of 392 centimeters/second. Gradient 40 mmHg estimated valve area 0.8 sq cm. There is mild mitral and tricuspid valve regurgitation. 05-09-2023: LÓPEZ echocardiogram demonstrated some moderate aortic stenosis and regurgitation. Will be followed as an outpatient by Cardiology for follow-up examinations. History of Present Illness #1. Seizure Disorder: Type: generalized myoclonic Frequency: None since being discharged from the hospital. Current Medications: Levetiracetam No complications related to medications.#2. Seizure disorder clinically stable. No interval complaints of any new problems. Taking the losartan and tolerating well.Active Medication ListLevetiracetam 500 MG TABLET 2 Tablets Every 12 HoursLosartan Potassium 50 MG TABLET Once Daily Surgical [id number] Lap Sigmoidectomy Preventative Gbvwofp3208/28/2019 ALBUMIN 4.4 G/DL N008/28/2019 PSA 0.3 NG/ML N105/16/2011 COLONOSCOPY 03/16/2022 Social HistoryMarriedSmokes two packs daily for over 15 yearsDrinks sociallyGraphics designerFamily HistoryMother 78 HTN, Carcinoma of BreastFather 79 high cholesterol and Thyroid noduleOne brother living and in good healthTwo sisters living and in good health Tunde Mcdaniel MD [address] [facility] [address], [place], [address], [place] [facility] 07/07/2023 12:08:20 4 text/html Patient Name: Bernard LovingDate Of Service: Friday ( 07.25.2023 ): 1970 Age: 52 There has been approximately a 1.5 lb weight gain since 07/07/2023. This represents approximately a .8% change in weight. Weight change attributable to lifestyle changes. Vital Signs:Blood Pressure: Sitting Rt. Arm 108/60Pulse: Sitting 68 /min and RegularRespiratory Rate: 12Height 71 in or 1.8 mWeight 200 lb or 90.7 kgBMI 27.9Temperature: 97 F or 36.1 CPulse Oximetry: 96 % at rest on no oxygen Chief Complaint: Addressed in HPI Problems or conditions discussed in the HPI were the only ones reviewed during the encounter.Only social and family history addressed in the HPI were reviewed during this encounter. Attendant(s): NoneConstitutional and Systemic Symptoms:none Medication Reconciliation: from medication list. [id number]: Echocardiogram estimated ejection fraction greater than 70%. Severe aortic stenosis with peak velocity of 392 centimeters/second. Gradient 40 mmHg estimated valve area 0.8 sq cm. There is mild mitral and tricuspid valve regurgitation. 05-09-2023: LÓPEZ echocardiogram demonstrated some moderate aortic stenosis and regurgitation. Will be followed as an outpatient by Cardiology for follow-up examinations. 07-23-2023: Cardiac catheterization. Left main widely patent without any significant obstructive disease. Left anterior descending some luminal irregularities. The 1st branch diagonal was mild diffuse disease. No significant obstructive disease noted. Left circumflex large caliber vessel with mild decrease in proximal portion. Mild diffuse disease but no significant obstructive disease. Right coronary artery shows moderate stenosis but no significant obstructive disease. History of Present Illness #1. Follow-up essential hypertension has been somewhat labile blood pressure doing excellent today. Currently taking losartan 50 mg daily. 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 This may help prevent any type of lightheadedness. Denies any chest pain, shortness for breath or any other cardiovascular symptoms. Has had no additional seizures: Active Medication ListLevetiracetam 500 MG TABLET 2 Tablets Every 12 HoursLosartan Potassium 50 MG TABLET Once Daily Surgical [id number] Lap Sigmoidectomy Preventative Ubzocpz9508/28/2019 ALBUMIN 4.4 G/DL N008/28/2019 PSA 0.3 NG/ML N105/16/2011 COLONOSCOPY 03/16/2022 Social HistoryMarriedSmokes two packs daily for over 15 yearsDrinks sociallyGraphics designerFamily HistoryMother 78 HTN, Carcinoma of BreastFather 79 high cholesterol and Thyroid noduleOne brother living and in good healthTwo sisters living and in good health Tunde Mcdaniel MD [address], [address], [facility] 07/25/2023 15:17:36 4 text/html Patient Name: Bernard LovingDate Of Service: Friday ( 11.04.2023 ): 1970 Age: 52 Vital Signs:Blood Pressure: Sitting Rt. Arm 120/70Pulse: Sitting 55 /min and RegularRespiratory Rate: 12Height 71 in or 1.8 mWeight 200 lb or 90.7 kgBMI 27.9Temperature: 97.7 F or 36.5 CPulse Oximetry: 97 % at rest on no oxygen Chief Complaint: Addressed in HPI Problems or conditions discussed in the HPI were the only ones reviewed during the encounter.Only social and family history addressed in the HPI were reviewed during this encounter. Attendant(s): NoneConstitutional and Systemic Symptoms:none Medication Reconciliation: from medication list. [id number]: Echocardiogram estimated ejection fraction greater than 70%. Severe aortic stenosis with peak velocity of 392 centimeters/second. Gradient 40 mmHg estimated valve area 0.8 sq cm. There is mild mitral and tricuspid valve regurgitation. 05-09-2023: LÓPEZ echocardiogram demonstrated some moderate aortic stenosis and regurgitation. Will be followed as an outpatient by Cardiology for follow-up examinations. 07-23-2023: Cardiac catheterization. Left main widely patent without any significant obstructive disease. Left anterior descending some luminal irregularities. The 1st branch diagonal was mild diffuse disease. No significant obstructive disease noted. Left circumflex large caliber vessel with mild decrease in proximal portion. Mild diffuse disease but no significant obstructive disease. Right coronary artery shows moderate stenosis but no significant obstructive disease. History of Present Illness #1. Essential Hypertension: Stage: Stage I Interval Neurological Complaints no headaches, dizziness, weakness, visual changes, ataxia, aphasia and apraxia. No shortness of breath, orthopnea or cardiovascular symptoms. No other symptoms related to end organ damage. Pressure has been under excellent control. Currently normal. No other end organ symptoms or findings. Therapy reviewed regarding management of hypertension and includes salt restriction and Losartan Potassium. #2. Type II Hypercholesterolaemia: Currently taking medication and tolerating well. No interval complaints of any muscle pain or arthralgia. No significant liver changes with medications. Last lipid panel: fair control. Therapy reviewed regarding treatment of cholesterol management and include diet and Rosuvastatin. #3. Aortic Stenosis: Symptoms: no cardiac symptoms Hx of valvular aortic stenosis. No interval complaints of any chest pain, shortness of breath, palpitations or syncope. No palpitations. No change in exercise tolerance. Severity moderate. Last echocardiogram was less than six months ago. Followed by Cardiology: regularly Currently does not need a repeat echocardiogram.#4. Seizure disorder clinically stable currently Levetiracetam and doing well and has had no recurrent seizure activity.Active Medication ListLevetiracetam 500 MG TABLET 2 Tablets Every 12 HoursLosartan Potassium 50 MG TABLET Once DailyAspirin 81 MG CAPSULE One DailyRosuvastatin 10 MG TABLET One Daily Surgical [id number] Lap Sigmoidectomy Preventative Tiupiso0008/28/2019 ALBUMIN 4.4 G/DL N008/28/2019 PSA 0.3 NG/ML N105/16/2011 COLONOSCOPY 03/16/2022 Social HistoryMarriedSmokes two packs daily for over 15 yearsDrinks sociallyGraphics designerFamily HistoryMother 78 HTN, Carcinoma of BreastFather 79 high cholesterol and Thyroid noduleOne brother living and in good healthTwo sisters living and in good health Tunde Mcdaniel MD [address] [facility] [address], [place], [address], [place] [facility] [employer] [facility] 11/04/2023 15:41:15 4 text/html Patient Name: Bernard Bowlingte Of Service: Friday ( 03.09.2024 ): 1970 Age: 53 There has been approximately a 2 lb weight gain since 11/04/2023. This represents approximately a 1.0% change in weight. Weight change attributable to lifestyle changes. Vital Signs:Blood Pressure: Sitting Rt. Arm 130/70Pulse: Sitting 71 /min and RegularRespiratory Rate: 16Height 71 in or 1.8 mWeight 202 lb or 91.6 kgBMI 28.2Temperature: 97 F or 36.1 CPulse Oximetry: 97 % at rest on no oxygen Chief Complaint: Addressed in HPI Problems or conditions discussed in the HPI were the only ones reviewed during the encounter.Only social and family history addressed in the HPI were reviewed during this encounter. Attendant(s): NoneConstitutional and Systemic Symptoms:none Medication Reconciliation: from medication list. [id number]: Echocardiogram estimated ejection fraction greater than 70%. Severe aortic stenosis with peak velocity of 392 centimeters/second. Gradient 40 mmHg estimated valve area 0.8 sq cm. There is mild mitral and tricuspid valve regurgitation. 05-09-2023: LÓPEZ echocardiogram demonstrated some moderate aortic stenosis and regurgitation. Will be followed as an outpatient by Cardiology for follow-up examinations. 07-23-2023: Cardiac catheterization. Left main widely patent without any significant obstructive disease. Left anterior descending some luminal irregularities. The 1st branch diagonal was mild diffuse disease. No significant obstructive disease noted. Left circumflex large caliber vessel with mild decrease in proximal portion. Mild diffuse disease but no significant obstructive disease. Right coronary artery shows moderate stenosis but no significant obstructive disease. History of Present Illness #1. Essential Hypertension: Stage: Stage I Interval Neurological Complaints no headaches, dizziness, weakness, visual changes, ataxia, aphasia and apraxia. No shortness of breath, orthopnea or cardiovascular symptoms. No other symptoms related to end organ damage. Pressure has been under excellent control. Currently normal. No other end organ symptoms or findings. Therapy reviewed regarding management of hypertension and includes salt restriction and Losartan Potassium. #2. Type II Hypercholesterolaemia: Currently taking medication and tolerating well. No interval complaints of any muscle pain or arthralgia. No significant liver changes with medications. Last lipid panel: fair control. Therapy reviewed regarding treatment of cholesterol management and include diet and Rosuvastatin. #3. Aortic Stenosis: Symptoms: no cardiac symptoms Hx of calcified aortic stenosis. No interval complaints of any chest pain, shortness of breath, palpitations or syncope. No palpitations. No change in exercise tolerance. Severity mild. Last echocardiogram was less than six months ago. Followed by Cardiology: yes Currently does not need a repeat echocardiogram. #4. Seizure Disorder: Type: Complex Partial Frequency: None since last visit Current Medications: Levetiracetam No complications related to medications. Active Medication ListLevetiracetam 500 MG TABLET, EXTENDED RELEASE 4 Tabs DailyLosartan Potassium 50 MG TABLET Once DailyAspirin 81 MG CAPSULE One DailyRosuvastatin 10 MG TABLET One Daily Surgical [id number] Lap Sigmoidectomy Preventative Testing( ) 08/28/2019 Albumin 4.4 G/DL N(X) 08/28/2019 PSA 0.3 NG/ML N 08/27/2020(X) 03/16/2012 Colonoscopy 03/16/2022 Social HistoryMarriedSmokes two packs daily for over 15 yearsDrinks sociallyGraphics designerFamily HistoryMother 78 HTN, Carcinoma of BreastFather 79 high cholesterol and Thyroid noduleOne brother living and in good healthTwo sisters living and in good health Tunde Mcdaniel MD [address], [place], [address], [place] [facility] 03/09/2024 15:16:33
--- OUTSIDE RECORDS SUMMARY | 2024-07-28 00:33 | XMS_ITS | Referral Summary ---
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 Name Role Phone Tunde Mcdaniel MD Primary Care Provider Encounters Date Type Department Care Team Description 04/29/2024 9:00 AM ACLS SPECIALIST Ancillary Procedure [facility] Vascular and Vein Surgery at [address] [place] [address] Left carotid bruit from Last 3 Months Allergies Active Allergy Reactions Criticality Noted Date Comments Ampicillin Unknown 06/04/2023 Medications aspirin 81 mg enteric coated tabletIndicatio ns:Coronary artery disease involving [place] coronary artery of [place] heart without angina pectoris Take 1 tablet [...] 10 mg tabletIndicatio ns:Coronary artery disease involving [place] coronary artery of [place] heart without angina pectoris Take 1 tablet [...] bruit 04/08/2024 Coronary artery disease invo lving [place] coronary artery of [place] heart without angina pectoris 07/11/2023 Tobacco abuse 07/11/2023 FRANKIE (obstructive sleep apnea) 07/11/2023 Abnormal cardiovascular stress test 07/11/2023 Hyperlipidemia LDL goal <70 07/11/2023 Elevated troponin 07/11/2023 Nonrheumatic aortic valve insufficiency 06/04/19 Nonrheumatic aortic valve stenosis 06/04/2023 Lipid screening 06/04/2023 Essential hypertension 06/04/2023 Social History Tobacco Use Types Packs/Day Years [...] on file Legal Sex Male 11:25 AM ACLS SPECIALIST Gender Identity Not on file Sexual Orientation Not on file Last Filed Vital Signs Vital Sign Reading Time Taken Comments Blood Pressure 138/82 04/08/2024 8:22 AM ACLS SPECIALIST Pulse 68 04/08/2024 8:22 AM ACLS SPECIALIST Temperature - - Respiratory Rate - - Oxygen Saturation 96% 04/08/2024 8:22 AM ACLS SPECIALIST Inhaled Oxygen Concentration - - Weight 94.8 kg (209 lb) 04/08/2024 8:22 AM ACLS SPECIALIST Height 182.9 cm (6') 04/08/2024 8:22 AM ACLS SPECIALIST Body Mass Index 28.35 04/08/2024 8:22 AM ACLS SPECIALIST Plan of Treatment Not on file Procedures Procedure Name Priority Date/Time Associated Diagnosis Comments US CAROTIDS DUPLEX BILATERAL Schedule Routine, Read Routine (OP Routine) 04/29/2024 9:01 AM ACLS SPECIALIST Left carotid bruit from Last 3 Months Results * US Carotids Duplex Bilateral (04/29/2024 9:01 AM ACLS SPECIALIST) Anatomical Region Laterality Modality Vascular Bilateral Ultrasound 04/29/2024 8:45 AM ACLS SPECIALIST Narrative 04/30/2024 12:29 PM ACLS SPECIALIST Vascular & Vein Surgery [address] [place] [address] Carotid Duplex Ultrasound Report Patient Name: BERNARD TAN M. : 1970 (53y 4m) Study Date: 04/29/2024 8:45:43 AM Gender: M Tobacco Grower: Location: [facility] Ref Provider: AVIVA MOE Quality: Adequate Order Provider: VAIVA MOE PROCEDURES: Carotid Report: Carotid duplex examination [...] above. Electronically Signed By: Eric Sanchez MD [facility] 04/30/2024 12:29:05 PM ACLS SPECIALIST Procedure Note Eric Sanchez MD - 04/30/2024 Vascular & Vein Surgery [address] [place] [address]. [place] [address] Carotid Duplex Ultrasound Report Patient Name: BERNARD TAN M. : 1970 (53y 4m) Study Date: 04/29/2024 8:45:43 AM Gender: M Tobacco Grower: SOBIA Location: [facility] Ref Provider: AVIVA MOE Quality: Adequate Order [...] above. Electronically Signed By: Eric Sanchez MD [facility] 04/30/2024 12:29:05 PM ACLS SPECIALIST Aviva Moe MD IM US PROCEDURES Final R esult from Last [address] [place] [address] [employer] COVENTRY HMO/POS [address] [facility] [employer] Member Subscriber Plan / Payer (Ef fective 2013-Present) Name:Bernard Tan Relation to Subscriber:Spouse Name:HODAN TAN Date of :1970 (Home) Address: [address] [place] [address] Payer ID:[id number] (NA) Type:[employer] HMO/PPO Address: [place] [id number] Care Teams Industrial Locomotive Operator Relationship Specialty Start Date End Date Tunde Mcdaniel MD [address] [facility] [address] [place] [address] PCP - General Internal Medicine 05/07/23
[2024-07-28 07:43] VITALS: BP 137/77; PULSE 75; RESP 16; TEMP 35.8; O2SAT 97; BMI 27.5
[2024-07-28] MEDS: LACTATED RINGERS 1,000 ML 150 ML IV CONT ×2 (07:50→11:02)
--- NOTE | 2024-07-28 08:20 | P.PNAN_ITS ---
Anes - Initial Pre Proc Eval Procedure: Operation Date: 07/28/24 09:00 Proposed Procedures p Colonoscopy - Molina Fabian MD Date/Time: 07/28/24 08:20 Surgeon: Molina Fabian MD Pre Op Diagnosis: fecal abnormalities Patient Data Age: 53 Gender: M Height: 1.83 m Weight: 92 kg Last Vital Signs Temp 96.5 F L 07/28/24 07:43 Pulse 75 07/28/24 07:43 Resp 16 07/28/24 07:43 BP 137/77 07/28/24 07:43 Pulse Ox 97 07/28/24 07:43 O2 Del Method Room Air 07/28/24 07:43 Allergies Allergy/AdvReac Type Severity Reaction Status Date / Time ampicillin Allergy Unknown Unknown Verified 07/28/24 07:41 Penicillins Allergy Unknown Unknown Verified 07/28/24 07:41 Home Medications ?Medication ?Instructions ?Recorded ?Confirmed ?Type losartan 25 mg tablet 50 mg (2 x 25 mg) PO DAILY #30 tabs 07/01/23 07/28/24 Rx aspirin 81 mg tablet,delayed 81 mg PO DAILY 07/22/23 07/28/24 History release rosuvastatin 10 mg tablet 10 mg PO HS 07/22/23 07/28/24 History levetiracetam 500 mg 2,000 mg (4 x 500 mg) PO DAILY 12/09/23 07/28/24 Rx tablet,extended release 24 hr #120 tabs (Keppra XR) Patient hx anesthesia problems: none Family hx anesthesia problems: none Results Review: All pre-operative results and documents have been reviewed as part of the pre- operative evaluation. 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 Aortic insufficiency with aortic stenosis Hypertension Systolic murmur Tobacco use Diverticulitis Family History Family History Father Family history of thyroid disease Mother Family history of diabetes mellitus in first degree relative Social History Social History Smoking packs per day: 2 Smoking cigarettes per day: 40.0 Years smoked: 20 Smoking pack-years: 40.00 Smoking status: Former smoker Tobacco type: cigarettes Smoking end date: 05/09/23 Alcohol intake: former Drinks per week: 2 Alcohol use details: Drinks shots on Tuesdays while playing darts Substance use: current Substance use type: marijuana Do You Feel Safe in your Home?: Yes Lack of Transportation: No Lack of Food: Never True Current Housing: I Have Housing Concerned About Future Housing: No Difficulty Paying Gas/Electric Bills: No Difficulty Paying for Meds: No Currently Unemployed: No Education: Bachelor's Degree Difficulty w/ Childcare or Family Care: No Living arrangements: with family Additional living arrangements comments: Gender identity (if verbalized by the patient): Male Spiritual care concerns: No Anes - Eval Final PreProcedure Day of Procedure 07/28/24 08:20 Patient weight: overweight Lungs: normal air movement Airway: Mallampati scale class II and special considerations (Missing upper teeth on the post aspect. ) Neurological: alert and oriented Last oral intake: >/= 8 hours ASA classification: III Emergent: no Anesthetic plan: proceed Anesthesia type and monitoring: general GIVS and standard monitoring Results Review: All pre-operative results and documents have been reviewed as part of the pre-operative evaluation. HTN, hyperlipidemia, mild by ECHO 2024, Pt on seizure meds after having seizure w a spinal infection within the last year. Informed Consent: The patient's anesthetic plan and its attendant risks and benefits were discussed with the patient/family/POA. Questions were solicited and answers provided to the satisfaction of the patient/family/POA.
--- NOTE | 2024-07-28 08:49 | PM.IMHP ---
H&P: HPI History of Present Illness Date/Time: 07/28/24 08:49 Chief Complaint: Positive Cologuard test Narrative: the patient is referred for colonoscopy screening due to a positive Cologuard test. His last colonoscopy was over 10 years ago. He is asymptomatic from a GI standpoint. the patient had a partial colonic resection years ago of due to recurrent episodes of diverticulitis. 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 Aortic insufficiency with aortic stenosis Hypertension Systolic murmur Tobacco use Diverticulitis Family History Family History Father Family history of thyroid disease Mother Family history of diabetes mellitus in first degree relative Social History Social History Smoking packs per day: 2 Smoking cigarettes per day: 40.0 Years smoked: 20 Smoking pack-years: 40.00 Smoking status: Former smoker Tobacco type: cigarettes Smoking end date: 05/09/23 Alcohol intake: former Drinks per week: 2 Alcohol use details: Drinks shots on Tuesdays while playing darts Substance use: current Substance use type: marijuana Do You Feel Safe in your Home?: Yes Lack of Transportation: No Lack of Food: Never True Current Housing: I Have Housing Concerned About Future Housing: No Difficulty Paying Gas/Electric Bills: No Difficulty Paying for Meds: No Currently Unemployed: No Education: Bachelor's Degree Difficulty w/ Childcare or Family Care: No Living arrangements: with family Additional living arrangements comments: Gender identity (if verbalized by the patient): Male Spiritual care concerns: No Meds Home Medications and Allergies Home Medications ?Medication ?Instructions ?Recorded ?Confirmed ?Type losartan 25 mg tablet 50 mg (2 x 25 mg) PO DAILY #30 tabs 07/01/23 07/28/24 Rx aspirin 81 mg tablet,delayed 81 mg PO DAILY 07/22/23 07/28/24 History release rosuvastatin 10 mg tablet 10 mg PO HS 07/22/23 07/28/24 History levetiracetam 500 mg 2,000 mg (4 x 500 mg) PO DAILY 12/09/23 07/28/24 Rx tablet,extended release 24 hr #120 tabs (Keppra XR) Allergies Allergy/AdvReac Type Severity Reaction Status Date / Time ampicillin Allergy Unknown Unknown Verified 07/28/24 07:41 Penicillins Allergy Unknown Unknown Verified 07/28/24 07:41 Vital Signs Vital Signs - 24 hr 07/28/24 07:43 Temperature 96.5 F L Pulse Rate 75 Respiratory Rate 16 Blood Pressure 137/77 Pulse Oximetry 97 Oxygen Delivery Room Air Exam Const: General: cooperative and healthy appearing Resp: Effort & Inspection: normal respiratory effort and able to speak in complete sentences Auscultation: clear to auscultation bilaterally Cardio: Rate: regular rate Rhythm: regular rhythm GI: Inspection: normal to inspection GI Palp: No No hepatosplenomegaly present Auscultation: normal bowel sounds Rectal Exam: deferred Skin: General skin exam: normal color Psych: Appearance: grossly normal Mental Status: mental status grossly normal Assessment and Plan Assessment and plan (1) Positive colorectal cancer screening using Cologuard test: Code(s): R19.5 - Other fecal abnormalities Status: Acute Assessment and Plan: The patient is deemed a good candidate for the procedure. Consent signed. Will proceed.
[2024-07-28 10:33] VITALS: BP 137/93; PULSE 82; RESP 27; O2SAT 99
[2024-07-28 10:43] VITALS: BP 124/71; PULSE 69; RESP 15; O2SAT 100
[2024-07-28 10:53] VITALS: BP 122/62; PULSE 66; RESP 21; O2SAT 99
[2024-07-28] MEDS: EPINEPHrine INJ 1 MG/10 ML SYRINGE XX (10:59)
== END 2024-07-28 11:10 | disposition home or self-care (01) ==
PROVIDERS: PCP Internal Medicine; Referring Provider Internal Medicine; Visit Provider Internal Medicine Gastroenterology
PROC: 0DJD8ZZ Inspection of Lower Intestinal Tract, Via Natural or Artificial Opening Endoscopic (ICD-10-PCS; CPT 45378; principal; 2024-07-28 09:00)
DX: R19.5 Other fecal abnormalities (principal); D12.8 Benign neoplasm of rectum; D12.7 Benign neoplasm of rectosigmoid junction; D12.3 Benign neoplasm of transverse colon; D12.2 Benign neoplasm of ascending colon; D12.4 Benign neoplasm of descending colon; K57.30 Diverticulosis of large intestine without perforation or abscess without bleeding; Z87.891 Personal history of nicotine dependence
CPT/HCPCS: 45385; 45381; 88305; J0171; J2003; J2704; J7120

== ENCOUNTER 2024-07-31 07:14 | Outpatient (CLI) | payer OTHER, SELFPAY ==
--- OUTSIDE RECORDS SUMMARY | 2024-07-31 07:17 | XMS_ITS | Data Portability ---
Author Organization [place] - [facility], Main Office Address [address] [place] [address] Assessment No assessment recorded. Plan of Treatment Reminders Order Date Submit Date Provider Last Modified By Organization Details Last Modified Time Details Appointments None recorded . Lab PSA, serum or plasma 03/09/20 [employer] [facility], [address], [address], [place], [address], 4 12:25:38 CBC w/ auto diff 03/09/20 [employer] [facility], [address], [address], [place], [address], 4 09:59:17 CMP, serum or plasma 03/09/20 [employer] [facility], [address], [place], [address], 4 12:23:38 lipid panel, serum 03/09/20 [employer] [facility], [address], [place], [address], 4 12:25:38 T4, free, serum 03/09/20 [email or web address] [facility], [address], [place], [address], 4 09:53:34 TSH, serum or plasma 03/09/20 [employer] [facility], [address], [place], [address], 12:25:38 Referral None recorded . Procedures None recorded . Surgeries None recorded . Imaging None recorded . Medication Orders None recorded . Patient TargetsNo targets recorded. Patient Instructions Encounter Date Encounter Id Patient Instructions Last Modified By Organization Details Last Modified Time 06/25/2023 [id number] Follow-up hypertension and aortic valve stenosis. Clinically [...] with voice recognition software. Occasional wrong-word or youhn-f-ozek substitutions may have occurred due to the inherent limitations of voice recognition software. Read the chart carefully and recognize, using context, where substitutions have occurred. [email or web address] Not available 06/25/2023 14:54:00 07/07/2023 [id number] Follow-up for seizure disorder and hypertension clinically [...] with voice recognition software. Occasional wrong-word or rbbdg-t-szpq substitutions may have occurred due to the inherent limitations of voice recognition software. Read the chart carefully and recognize, using context, where substitutions have occurred. Keep Appt: Fri 01:50 PM [place] Not available 07/07/2023 12:08:01 07/25/2023 [id number] Essential hypertension currently clinically stable. Instructed try to take the losartan at bedtime to see if there is better control in the alteration inspector hours and probably help prevent any problems with any transient hypo tension later in the day. Already has a follow-up appointment. Keep Appt: Fri 01:50 PM [place] Portions of the record may have been created with voice recognition software. Occasional wrong-word or mmlgk-h-lgtu substitutions may have occurred due to the inherent limitations of voice recognition software. Read the chart carefully and recognize, using context, where substitutions have occurred. [email or web address] Not available 07/25/2023 15:17:09 11/04/2023 [id number] Follow-up for essential hypertension, aortic stenosis, hyperlipidemia and seizure disorder all clinically stable. Is followed on a regular basis by Cardiology. He is scheduled to see Neurology within the next month. Will continue on current Rx follow-up in four months. Next Appointment: 4 Months Approximate Date: 03/03/2024 Portions of the record may have been created with voice recognition software. Occasional wrong-word or yyeqh-w-mjrb substitutions may have occurred due to the inherent limitations of voice recognition software. Read the chart carefully and recognize, using context, where substitutions have occurred. [email or web address] Not available 11/04/2023 15:41:04 03/09/2024 [id number] Follow-up for essential hypertension, hyperlipidemia, aortic stenosis [...] with voice recognition software. Occasional wrong-word or stfhw-j-sdcg substitutions may have occurred due to the inherent limitations of voice recognition software. Read the chart carefully and recognize, using context, where substitutions have occurred. Not available 03/09/2024 15:16:03 Reason for Referral [...] is negat zaheer. TEST DESCR IPTIO N: [place] site algor ithmi c devi sis of [...] years or older , who are at [facility] for color ectal cance r (CRC) . Colog uard has been appro orly for use by the [place].S. FDA. The perfo rmanc e of Colog uard was estab lishe d in a cross secti onal study of [facility] adult s aged 50-84 . Colog uard [...] of ,00 0 indiv idual s at [facility] risk for color ectal cance r [...] at www.c ologu jaison.c om. Not Available [facility] (Cologuard Orders Only) [address], [place], [address], 04/01/2024 07:32:06 06/26/19 24 06/26/2023 XR, chest , 1 view No observ ation record ed. [address] [facility], [place], [address], 06/26/2023 08:30:20 06/26/19 24 06/26/2023 CT, brain , w/o contr ast No observ ation record ed. [address] [facility], [place], [address], 06/26/2023 10:09:18 06/26/19 24 06/26/2023 XR, lumba r spine No observ ation record ed. [email or web address] [address] [facility], [place], [address], 06/30/2023 12:08:33 06/27/19 24 06/27/2023 marni nuous EEG monit luis m craig al compo nent; 12-26 hrs, with VEEG (PROC ) No observ ation record ed. [address] [facility], [place], [address], 06/27/2023 14:24:53 06/30/19 24 06/30/2023 CT, angio gram, neck, w/ contr ast No observ ation record ed. [place] [address], [place], [address], 07/01/2023 07:52:08 Result Notes None recorded. Problems Name Problem SNOMED Code Status Onset Date Resolution Date Notes Provider Name and Address Organization Details Recorded Time Chest wall pain 552217659 Active 2016 Not Available [facility] 3 15:25:31 Lateral epicondylitis 813099164 Active Not Available [facility] 3 15:25:31 Shoulder strain 181040467 Active Not Available [facility] 3 15:25:31 Abscess of scrotum 23454569 Active Not Available [facility] 3 15:25:31 Multiple joint pain 86971577 Active 2016 Not Available [facility] 3 15:25:31 Tenosynovitis of wrist 293437154 Active Not Available [facility] 3 15:25:31 Aortic valve stenosis 13338806 Active 2023 Tunde Mcdaniel MD [address], [place], [address] , [employer] 4 16:48:17 Essential hypertension 92816809 Active 2023 Tunde Mcdaniel MD [address], [address], [place], [address] , [employer] [facility] [employer] 4 16:48:25 Confusional state 882377034 Active 2023 Tunde Mcdaniel MD [address], [address], [place], [address] , [employer] [facility] [employer] 4 16:56:11 Seizure disorder 344707714 Active 2023 Tunde Mcdaniel MD [address], [address], [place], [address] , [employer] [facility] [employer] 4 12:04:01 Hyperlipidemi a 77099337 Active 2023 RENNY Baum, [facility] 4 15:05:45 Furuncle 343163985 Active 2023 Tunde Mcdaniel MD [address], [facility] [address], [place], [address] , [facility] 4 10:45:04 Disorder of prostate 75968011 Active 2023 Tunde Mcdaniel MD [address], [facility] [address], [place], [address] , [facility] 4 15:15:47 Colorectal cancer detected by DNA-based stool screening 141909306 Active 2023 RENNY Baum, [facility] 12:28:58 Problem Notes None recorded. Procedures Surgical History None recorded. Imaging Results Imaging Date Name Status LastModified by Organization Details LastModified Time 06/26/2023 XR, chest, 1 view completed [address], [address], 06/26/2023 08:30:20 06/26/2023 CT, brain, w/o contrast completed [address], [address], 06/26/2023 10:09:18 06/26/2023 XR, lumbar spine completed [email or web address] [address], [address], 06/30/2023 12:08:33 06/27/2023 continuous EEG monitoring, professional component; 12-26 hrs, with VEEG (PROC) completed [address] [place] [address], [address], 06/27/2023 14:24:53 06/30/2023 CT, angiogram, neck, w/ contrast completed [address] [place] [address], [address], 07/01/2023 07:52:08 Procedure Notes None recorded. Medical Equipment None Reported. Allergies Allergen ID Allergen Name Allergen Category Reaction Reaction Severity Criticality Documentation Date Start Date Code Code System Note Provider Name and Address Organization Details Recorded Time 66779 amoxicill in medicatio n rash mild unabletoasse ss 12/11/2023 723 RxNorm Tunde Mcdaniel MD [address], [address], [place], [address], [facility] 4 10:44:57 Medications Name Sig Start [...] Updated DateTime 4 180.34 cm 27.5 kg/m2 96430.7 g 69 /min 97 [degF] 96 % 96 % 142 mm[Hg] 74 mm[Hg] [facility] 4 14:42:58 Date Recorded Body height Body mass index (BMI) Body weight Heart rate Body temperature Oxygen saturation Oxygen saturation in Arterial blood by Pulse oximetry Systolic blood pressure Diastolic blood pressure Provider Name and Address Organization Details Last Updated DateTime 4 180.34 cm 27.7 kg/m2 95929.0 9 g 71 /min 97 [degF] 95 % 95 % 104 mm[Hg] 60 mm[Hg] Maida [employer] 4 11:53:02 Date Recorded Body height Body mass index (BMI) Body weight Heart rate Body temperature Oxygen saturation Oxygen saturation in Arterial blood by Pulse oximetry Systolic blood pressure Diastolic blood pressure Provider Name and Address Organization Details Last Updated DateTime 4 180.34 cm 27.9 kg/m2 35523.4 7 g 68 /min 97 [degF] 96 % 96 % 108 mm[Hg] 60 mm[Hg] Maida [employer] 4 14:44:15 Date Recorded Body height Body mass index (BMI) Body weight Heart rate Body temperature Oxygen saturation Oxygen saturation in Arterial blood by Pulse oximetry Systolic blood pressure Diastolic blood pressure Provider Name and Address Organization Details Last Updated DateTime 4 180.34 cm 27.9 kg/m2 40300.4 7 g 55 /min 97.7 [degF] 97 % 97 % 120 mm[Hg] 70 mm[Hg] SUMI Mehta [employer] 4 15:06:40 Date Recorded Body height Body mass index (BMI) Body weight Heart rate Body temperature Oxygen saturation Oxygen saturation in Arterial blood by Pulse oximetry Systolic blood pressure Diastolic blood pressure Provider Name and Address Organization Details Last Updated DateTime 4 180.34 cm 28.2 kg/m2 84866.6 6 g 71 /min 97 [degF] 97 % 97 % 130 mm[Hg] 70 mm[Hg] Kaylie Jesus [facility] [employer] [facility] 4 15:00:50 Social History None recorded. Functional Status None recorded. Mental Status None recorded. Family History Nothing Reported Notes:Mother 74 HTN, Carcino ma of Breast Father 75 high cholesterol and Thyroid nodule One brother living and in good health Two sisters living and in good health Medical History Condition Response NERVE DISEASE N BLINDNESS N RHEUMATIC FEVER N KIDNEY STONES N BLADDER PROBLEMS N MRSA N OTHER # 1 N POLIO N LUNG DISEASE/DISORDER N HISTORY OF DRUG ABUSE N RADIATION / CHEMOTHERAPY N COPD N Other # 2 N BLOOD DISEASES N EAR OR HEARING PROBLEMS N MUMPS N SHINGLES N BOWEL PROBLEMS N DEPRESSION (INCLUDING POST ) N FAILED BACK SYNDROME N STROKE/TIA N [...] HAVE YOU BEEN HOSPITALIZED OR SEEN IN [facility] IN THE PAST YEAR ? N ATHEROSCLEROSIS [...] SNOMED-CT Code Diagnosis ICD10 Code Diagnosis Note [id number] Tunde Mcdaniel MD [facility] Internal Med [facility] [address] [address] 05/14/2023 16:36:08 05/14/2023 17:15:36 Adult health examination 151766033 Z00.00 Depression screening 171 475149 Z13.31 Confusional state 796109 003 F44.89 Aortic valve stenosis 60 638236 I35.0 Essential hypertension 12206764 I10 [id number] Tunde Mcdaniel MD [facility] Internal Med [facility] [address] [address] 06/25/2023 14:27:04 06/25/2023 14:59:25 Essential hypertension 75854369 I10 Aortic valve stenosis 60 554485 I35.0 [id number] Tunde Mcdaniel MD [facility] Internal Med [facility] [address] [address] 07/07/2023 11:52:03 07/08/2023 09:01:26 Seizure disorder 749735583 G40.737 [id number] Tunde Mcdaniel MD [facility] Internal Med Richie llshakir [address] [place] [address] 07/25/2023 14:25:39 07/25/2023 15:24:44 Essential hypertension 42225328 I10 [id number] Tunde Mcdaniel MD [facility] Internal Med Richie rodgers [address] [place] [address] 11/04/2023 15:00:03 11/04/2023 15:45:19 Essential hypertension 44412214 I10 Aortic valve stenosis 60 626445 I35.0 Hyperlipidemia 29343576 E78.5 Seizure disorder 0212405 02 G40.032 [id number] Tunde Mcdaniel MD [facility] Internal Med [place] [address] [facility] [place] [address] 03/09/2024 14:33:41 03/09/2024 15:21:05 Essential hypertension 74780695 I10 Hyperlipidemia 31053494 E78.5 Aortic valve stenosis 60 698486 I35.0 Seizure disorder 9587807 02 G40.909 Disorder of prostate 302 [address] N42.9 Health Concerns Section Related Observation LastModified by Organization Detai ls LastModified Time None Recorded Concern Status LastModified by Organization Details LastModified Time None Recorded Advance Directives Directive None Recorded Payers Encounter Date Sequence Insurance Name Policy Number Policy Carrillo Covered Member ID Carrillo Member ID Guarantor Name 06/25/2023 1 [employer] - [employer] - OPEN CHOICE - NAP (PPO) [id number] Hodan M Fabienne [id number] Bernard Nieto Fabienne 07/07/2023 1 [employer] - [employer] - OPEN CHOICE - NAP (PPO) [id number] Hodan M Fabienne [id number] Bernard Nieto Fabienne 07/25/2023 1 [employer] - [employer] - OPEN CHOICE - NAP (PPO) [id number] Hodan Nieto Fabienne [id number] 2 [id number] Bernard Nieto Fabienne 11/04/2023 1 [employer] - [employer] - OPEN CHOICE - NAP (PPO) [id number] Hodan M Fabienne [id number] Bernard Nieto Fabienne 03/09/2024 1 [employer] - [employer] - OPEN CHOICE - NAP (PPO) [id number] Hodan Gerson Fabienne [id number] Bernard [address] Notes Date Note Type [...] Systemic Symptoms:none Medication Reconciliation: from medication list. [id number]: Echocardiogram estimated ejection fraction greater than 70%. [...] Potassium 25 MG TABLET Once Daily Surgical Mtvlrsk9265-78 Lap Sigmoidectomy Preventative Testing Confirmed by Our Ybtldrl8208/28/2019 ALBUMIN 4.4 G/DL N008/28/2019 PSA 0.3 NG/ML N105/16/2011 COLONOSCOPY 03/16/2022 Social HistoryMarriedSmokes two packs daily for over 15 yearsDrinks sociallyGraphics designerFamily HistoryMother 78 HTN, Carcinoma of BreastFather 79 high cholesterol and Thyroid noduleOne brother living and in good healthTwo sisters living and in good health Tunde Mcdaniel MD [address] [facility], [facility] [address], [place], [address], [place] [facility] 06/25/2023 14:54:27 4 text/html Patient Name: Bernard [...] Systemic Symptoms:none Medication Reconciliation: from medication list. [id number]: Echocardiogram estimated ejection fraction greater than 70%. [...] Potassium 50 MG TABLET Once Daily Surgical Zomynwp5264-59 Lap Sigmoidectomy Preventative Ctfbaoj9208/28/2019 ALBUMIN 4.4 G/DL N008/28/2019 PSA 0.3 NG/ML N105/16/2011 COLONOSCOPY 03/16/2022 Social HistoryMarriedSmokes two packs daily for over 15 yearsDrinks sociallyGraphics designerFamily HistoryMother 78 HTN, Carcinoma of BreastFather 79 high cholesterol and Thyroid noduleOne brother living and in good healthTwo sisters living and in good health Tunde Mcdaniel MD [address] [facility], [facility] [address], [place], [address], [place] [facility] 07/07/2023 12:08:20 4 text/html Patient Name: Bernard [...] Systemic Symptoms:none Medication Reconciliation: from medication list. [id number]: Echocardiogram estimated ejection fraction greater than 70%. [...] Potassium 50 MG TABLET Once Daily Surgical Odtqoez8900-27 Lap Sigmoidectomy Preventative Xuuofpd6408/28/2019 ALBUMIN 4.4 G/DL N008/28/2019 PSA 0.3 NG/ML N105/16/2011 COLONOSCOPY 03/16/2022 Social HistoryMarriedSmokes two packs daily for over 15 yearsDrinks sociallyGraphics designerFamily HistoryMother 78 HTN, Carcinoma of BreastFather 79 high cholesterol and Thyroid noduleOne brother living and in good healthTwo sisters living and in good health Tunde Mcdaniel MD [address], [address], [facility] 07/25/2023 15:17:36 4 text/html Patient Name: Bernard [...] Systemic Symptoms:none Medication Reconciliation: from medication list. [id number]: Echocardiogram estimated ejection fraction greater than 70%. [...] DailyRosuvastatin 10 MG TABLET One Daily Surgical Cmzqjgz8527-07 Lap Sigmoidectomy Preventative Vnspmxq1608/28/2019 ALBUMIN 4.4 G/DL N008/28/2019 PSA 0.3 NG/ML N105/16/2011 COLONOSCOPY 03/16/2022 Social HistoryMarriedSmokes two packs daily for over 15 yearsDrinks sociallyGraphics designerFamily HistoryMother 78 HTN, Carcinoma of BreastFather 79 high cholesterol and Thyroid noduleOne brother living and in good healthTwo sisters living and in good health Tunde Mcdaniel MD [address] [facility], [facility] [address], [place], [address], [place] [employer] [facility] 11/04/2023 15:41:15 4 text/html Patient Name: [...] Systemic Symptoms:none Medication Reconciliation: from medication list. [id number]: Echocardiogram estimated ejection fraction greater than 70%. [...] DailyRosuvastatin 10 MG TABLET One Daily Surgical Fytnmbc8403-43 Lap Sigmoidectomy Preventative Testing( ) 08/28/2019 Albumin 4.4 G/DL N(X) 08/28/2019 PSA 0.3 NG/ML N 08/27/2020(X) 03/16/2012 Colonoscopy 03/16/2022 Social HistoryMarriedSmokes two packs daily for over 15 yearsDrinks sociallyGraphics designerFamily HistoryMother 78 HTN, Carcinoma of BreastFather 79 high cholesterol and Thyroid noduleOne brother living and in good healthTwo sisters living and in good health Tunde Mcdaniel MD [address], [place], [address], [place] [facility] 03/09/2024 15:16:33
--- OUTSIDE RECORDS SUMMARY | 2024-07-31 07:18 | XMS_ITS | Clinical Summary ---
Author Organization [facility] [address] Address [address] [place] [address] Care Team Providers Care Scouring Machine Tender Name Role Phone Tunde Mcdaniel MD Primary Care Provider Allergies Active Allergy Reactions Criticality Noted Date Comments Ampicillin Unknown 06/04/2023 Medications aspirin 81 mg enteric coated tabletIndicatio ns:Coronary artery disease involving muckleshoot coronary artery of muckleshoot heart without angina pectoris Take 1 tablet [...] 10 mg tabletIndicatio ns:Coronary artery disease involving muck[place]oot coronary artery of muck[place]oot heart without angina pectoris Take 1 tablet [...] bruit 04/08/2024 Coronary artery disease invo lving muckleshoot coronary artery of muckleshoot heart without angina pectoris 07/11/2023 Tobacco abuse 07/11/2023 FRANKIE (obstructive sleep apnea) 07/11/2023 Abnormal cardiovascular stress test 07/11/2023 Hyperlipidemia LDL goal <70 07/11/2023 Elevated troponin 07/11/2023 Nonrheumatic aortic valve insufficiency 06/04/19 24 Nonrheumatic aortic valve stenosis 06/04/2023 Lipid screening 06/04/2023 Essential hypertension 06/04/2023 Surgical History Surgery Date Site/Laterality Comments COLON [...] on file 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 Gender Identity Not on file Sexual Orientation Not on file Obstetrics History Last Filed Vital Signs Vital Sign Reading Time Taken Comments Blood Pressure 138/82 04/08/2024 8:22 AM BEAD FORMING MACHINE OPERATOR Pulse 68 04/08/2024 8:22 AM BEAD FORMING MACHINE OPERATOR Temperature - - Respiratory Rate - - Oxygen Saturation 96% 04/08/2024 8:22 AM BEAD FORMING MACHINE OPERATOR Inhaled Oxygen Concentration - - Weight 94.8 kg (209 lb) 04/08/2024 8:22 AM BEAD FORMING MACHINE OPERATOR Height 182.9 cm (6') 04/08/2024 8:22 AM BEAD FORMING MACHINE OPERATOR Body Mass Index 28.35 04/08/2024 8:22 AM BEAD FORMING MACHINE OPERATOR Plan of Treatment Health Maintenance Due Date Last Done Comments Colon Cancer Screening-Colonoscopy 1970 Depression Screening 1969 Hepatitis C Screening 1969 Prostate Cancer Screening-PSA 1969 DTaP/Tdap/Td Vaccine (1 - Tdap) 1980 Hepatitis B Screening 12/03/1987 Regular Well Visit/Exam 18-64 12/03/1987 Zoster Vaccine (1 of 2) 12/03/2019 Covid-19 Vaccine (2023-2 5 season) 2024 08/22/2020, 08/01/2020 Influenza Vaccine (#1) 2024 02/05/2020 Pneumococcal vaccine <65 Aged Out No longer eligible based on patient's age to complete this topic Insurance [employer] COVENTRY HMO/POS [employer] COVENTRY [place] [address] Care Teams Scouring Machine Tender Relationship Specialty Start Date End Date Tunde Mcdaniel MD [address] [address] PCP - General Internal Medicine 05/07/23
--- OUTSIDE RECORDS SUMMARY | 2024-07-31 07:18 | XMS_ITS | Continuity of Care Document ---
Author Organization [facility] Address [address] [facility] [address] [place] [address] Phone Care Team Providers Care Stock Ranch Supervisor Name Role Phone Bubba Nagel Unavailable Unavailable Procedures Procedure Date Office/outpatient Visit, Est Eye Exam, New Patient Advance Directives Directive Yes / No Effective Date File Name No Information Encounters Encounter Description Practice Location Reason(s) For Visit Diagnoses Date Provider Providers Copied on Encounter Office/outpat ient Visit, Est [facility], [address], [place], [place], [id number], [place] tel:[phone] [facility] No Information Jul-1 8-200 9 Shona Mac. [address] [facility] [address] [place] [address], [place], [place], [facility], [place]. tel:[phone] [facility], [address] [place] [address] [address], [place], [place], [address], [place] tel:[phone] [facility] No Information Jul-0 9-200 9 Doisy Edward. [address], [place], [address], [place]. tel:[phone] Family History Family Member Type Diagnosis Age At Onset No Information Payers Payer name Insurance type Covered republican ID Authoriza tiole(s) [facility] [id number] Social History Type Description Quantity Date Captured [...]
--- OUTSIDE RECORDS SUMMARY | 2024-07-31 07:18 | XMS_ITS | Referral Summary ---
Author Organization [facility] [address] Address [address] [place] [address] Care Team Providers Care Surveillance Agent Name Role Phone Tunde Mcdaniel MD Primary Care Provider Allergies Active Allergy Reactions Criticality Noted Date Comments Ampicillin Unknown 06/04/2023 Medications aspirin 81 mg enteric coated tabletIndicatio ns:Coronary artery disease involving shoshone-paiute coronary artery of shoshone-paiute heart without angina pectoris Take 1 tablet [...] 10 mg tabletIndicatio ns:Coronary artery disease involving shoshone-paiute coronary artery of shoshone-paiute heart without angina pectoris Take 1 tablet [...] bruit 04/08/2024 Coronary artery disease invo lving shoshone-paiute coronary artery of shoshone-paiute heart without angina pectoris 07/11/2023 Tobacco abuse [...] on file Legal Sex Male 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 Gender Identity Not on file Sexual Orientation Not on file Last Filed Vital Signs Vital Sign Reading Time Taken Comments Blood Pressure 138/82 04/08/2024 8:22 AM SENIOR LIVING ADVISOR Pulse 68 04/08/2024 8:22 AM SENIOR LIVING ADVISOR Temperature - - Respiratory Rate - - Oxygen Saturation 96% 04/08/2024 8:22 AM SENIOR LIVING ADVISOR Inhaled Oxygen Concentration - - Weight 94.8 kg (209 lb) 04/08/2024 8:22 AM SENIOR LIVING ADVISOR Height 182.9 cm (6') 04/08/2024 8:22 AM SENIOR LIVING ADVISOR Body Mass Index 28.35 04/08/2024 8:22 AM SENIOR LIVING ADVISOR Plan of Treatment Not on file Insurance [facility] HMO/POS [employer]ET[employer] COVENTRY HMO/POS Care Teams Surveillance Agent Relationship Specialty Start Date End Date Tunde Mcdaniel MD [address] [facility] [address] [place] [address] PCP - General Internal Medicine 05/07/23
[2024-07-31 08:30] LABS: Basophils Absolute Auto 0.1 K/mm3 (0.0-0.1); Basophils Percent Auto 0.7 % (0.2-1.2); Eosinophils Absolute Auto 0.5 K/mm3 (0-0.3); Eosinophils Percent Auto 5.7 % (0-4.4); Hematocrit 45.7 % (42.0-52.0); Hemoglobin 15.2 g/dL (14.0-18.0); Immature Granulocyte Absolute 0.02 K/mm3 (0.00-0.031); Immature Granulocyte Percent A 0.2 % (0-0.5); Lymphocytes Absolute Auto 2.06 K/mm3 (0.9-3.2); Lymphocytes Percent Auto 22.7 % (18.3-44.2); Mean Corpuscular HGB Conc 33.3 g/dl (32-36); Mean Corpuscular Volume 93.1 fl (80-100); Mean Platelet Volume 9.8 fl (7.4-10.4); Monocytes Absolute Auto 0.8 K/mm3 (0.1-0.6); Monocytes Percent Auto 9.2 % (2.6-8.5); Neutrophils Absolute Auto 5.6 K/mm3 (1.3-6.7); Neutrophils Percent Auto 61.5 % (45.5-73.1); Platelet Count Result 209 k/mm3 (150-375); Red Blood Count 4.91 M/mm3 (4.6-6.20); Red Cell Distribution Width 11.9 % (11.5-14.5); White Blood Count 9.1 K/mm3 (4.5-10.0)
[2024-07-31 08:44] LABS: Alanine Aminotransferase 39 U/L (6-50); Albumin Level 4.7 g/dL (3.5-5.1); Alkaline Phosphatase 44 U/L (38-126); Anion Gap 9 mmol/L (4-12); Aspartate Amino Transferase 29 U/L (17-59); Bilirubin,Total 0.5 mg/dL (0.2-1.3); Blood Urea Nitrogen 15 mg/dL (9-20); Calcium 9.4 mg/dL (8.4-10.2); Carbon Dioxide 28 mmol/L (22-30); Chloride 106 mmol/L (98-107); Cholesterol 138 mg/dL (0-200); Estimated Glomerular Filt Rate > 60; Glucose 122 mg/dL (65-110); HDL Direct 49 mg/dL; Potassium 4.4 mmol/L (3.4-5.0); Sodium 143 mmol/L (137-145); Triglycerides 91 mg/dL (<150)
[2024-07-31 08:55] LABS: LDL Cholesterol Direct 61 mg/dL
== END 2024-07-31 07:15 | disposition home or self-care (01) ==
LOC: ANHLAB 07:16
PROVIDERS: PCP Internal Medicine; Visit Provider Psychiatry & Neurology Neurology
DX: G40.219 Localization-related (focal) (partial) symptomatic epilepsy and epileptic syndromes with complex partial seizures, intractable, without status epilepticus (principal); E55.9 Vitamin D deficiency, unspecified
CPT/HCPCS: 36415; 80053; 80061; 82652; 85025

== ENCOUNTER 2024-09-08 07:08 | Outpatient (CLI) | payer OTHER, SELFPAY ==
--- OUTSIDE RECORDS SUMMARY | 2024-09-08 07:11 | XMS_ITS | Referral Summary ---
Author Organization [facility] [address] Address [address] [place] [address] Care Team Providers Care Planner Chief Name Role Phone Tunde Mcdaniel MD Primary Care Provider Allergies Active Allergy Reactions Criticality Noted Date Comments Ampicillin Unknown 06/04/2023 Medications aspirin 81 mg enteric coated tabletIndicatio ns:Coronary artery disease involving tanana coronary artery of tanana heart without angina pectoris Take 1 tablet [...] 10 mg tabletIndicatio ns:Coronary artery disease involving tanana coronary artery of tanana heart without angina pectoris Take 1 tablet [...] bruit 04/08/2024 Coronary artery disease invo lving tanana coronary artery of tanana heart without angina pectoris 07/11/2023 Tobacco abuse [...] on file 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 Gender Identity Not on file Sexual Orientation Not on file Last Filed Vital Signs Vital Sign Reading Time Taken Comments Blood Pressure 138/82 04/08/2024 8:22 AM BLACK TOP MACHINE OPERATOR Pulse 68 04/08/2024 8:22 AM BLACK TOP MACHINE OPERATOR Temperature - - Respiratory Rate - - Oxygen Saturation 96% 04/08/2024 8:22 AM BLACK TOP MACHINE OPERATOR Inhaled Oxygen Concentration - - Weight 94.8 kg (209 lb) 04/08/2024 8:22 AM 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
--- OUTSIDE RECORDS SUMMARY | 2024-09-08 07:11 | XMS_ITS | Clinical Summary ---
Author Organization [facility] Address [address] [facility] [place] [address] Care Team Providers Care Blend Technician Name Role Phone Tunde Mcdaniel MD Primary Care Provider [phone] Source Comments [facility],non-owned Affiliates and Associated Physician Practices is amultiple site organization consisting of ambulatory clinics and hospital sitesin [place], [place], [place] and [place]. This disclosure is being madepursuant to the Care Everywhere program and may not contain all information available regarding this patient. Last updated 18.[facility] Allergies Active Allergy Reactions Criticality Noted Date Comments Ampicillin Unknown 06/04/2023 Medications * Be aware that medications may not be up to date on this document. Alwaysverify current medications with the patient. aspirin EC (Ecotrin) 81 MG tablet Take 1 (one) tablet by mouth once daily 07/11/2023 Active levETIRAcetam CR 24hr (Keppra XR) 500 MG tablet TAKE 4 TABLETS BY MOUTH EVERY DAY Active losartan (Cozaar) 50 MG tablet Take 1 (one) tablet by mouth once daily 04/12/2024 Active nitroGLYCERIN (Nitrostat) 0.4 MG tablet Dissolve 1 (one) tablet under the tongue 07/11/2023 Active rosuvastatin (Crestor) 10 MG tablet Take 1 (one) tablet by mouth once daily 09/23/2023 Active Encounters Date Type Department Care Team Description 09/01/2024 Travel 08/13/2024 9:00 AM CDT - 08/13/2024 10:00 AM CDT Surgery [facility] [address] [place] [phone] Fortino Betancourt MD Colon + EMR 08/13/2024 8:05 AM CDT Anesthesia Event [facility] [address] [place] [address] Serenity Velez MD Keeven, 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, 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 08/13/2024 6:55 AM CDT - 08/13/2024 9:32 AM CDT Hospital Encounter [facility] [address] [place] [address] Fortino Betancourt MD Surgery General Discharge Disposition: Home or Self Care 08/13/2024 Orders Only [facility] - GI [address] [place] [phone] Fortino Betancourt MD History of colon polyps 08/13/2024 Travel 08/09/2024 Travel 08/05/2024 Telephone [facility] [address] [place] [phone] 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 Adams) from Last 3 Months Social History Tobacco Use Types Packs/Day Years Used Date Smoking Tobacco: Former Cigarettes 0 05/29/2023 - 1988 Smokeless Tobacco: Never Tobacco Cessation:Counseling Given: Not Answered Alcohol Use Standard Drinks/Week Comments Not Currently 0 (1 standard drink = 0.6 oz pur e alcohol) Sex and Gender Information Value Date Recorded Sex Assigned at Not on file Legal Sex Male 11:08 AM CDT Gender Identity Not on file Sexual Orientation Not on file Last Filed Vital Signs Vital Sign Reading Time Taken Comments Blood Pressure 114/78 08/13/2024 9:20 AM CDT Pulse 59 08/13/2024 9:20 AM CDT Temperature 36.6 C (97.9 F) 08/13/2024 8:56 AM CDT Respiratory Rate 16 08/13/2024 9:20 AM CDT Oxygen Saturation 97% 08/13/2024 9:20 AM CDT Inhaled Oxygen Concentration - - Weight 85.7 kg (189 lb) 08/13/2024 7:38 AM CDT Height 182.9 cm (6') 08/13/2024 7:38 AM CDT Body Mass Index 25.63 08/13/2024 7:38 AM CDT Plan of Treatment Upcoming Encounters Date Type Department Care Team (Late st Contact Info) Description 06/28/2025 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 Visit [facility] - Hematology/Oncology [address] [place] [phone] Erica Ponce, [address] [place] [address] Health Maintenance Due Date Last Done Comments CT COLONOGRAPHY - COLON CA SCREENING 1969 FIT - COLON CA SCREENING 1969 FLEX SIG - COLON CA SCREENING 1969 HIV SCREENING 1984 HEPATITIS C SCREENING 11/28/1987 DTAP/TDAP/TD VACCINES (1 - Tdap) 1988 HEPATITIS B VACCINE (1 of 3 - 19+ 3-dose series) 1988 PNEUMOCOCCAL VACCINE 50+ (1 of 1 - PCV) 12/03/2019 ZOSTER VACCINE (1 of 2) 12/03/2019 COVID-19 VACCINE (3 - 2023-2 5 season) 2024 08/22/2020, 08/01/2020 DEPRESSION SCREENING 05/05/2024 INFLUENZA VACCINE (Season Ended) 2025 02/05/2020 COLOGUARD (AGES 45-75) - COL ON CA SCREENING 03/23/2027 03/23/2024 COLON MONITORING 08/13/2034 08/13/2024, 08/13/2024 COLONOSCOPY - COLON CA SCREENING 08/13/2034 08/13/2024, 08/13/2024 Colorectal Cancer Screening 08/13/2034 HIB VACCINE Aged Out No longer eligi ble based on patient's age to complete this topic HPV VACCINE Aged Out No longer eligi ble based on patient's age to complete this topic MENINGOCOCCAL (Group B) VACCINE SHARED DECISION-MAKING Aged Out No longer eligible based on patient's age to complete this topic MENINGOCOCCAL GROUPS A/C/Y/W VACCINE Aged Out No longer eligible b ased on patient's age to complete this topic Procedures Procedure Name Priority Date/Time Associated Diagnosis Comments PATHOLOGY TISSUE Routine 08/13/2024 8:22 AM CDT Polyp of colon, unspecified part of colon, unspecified type ENDOSCOPY, COLON, DIAGNOSTIC Routine 08/13/2024 8:07 AM CDT MT COLONOSCOPY, DIAGNOSTIC 08/13/2024 8:00 AM CDT Polyp of colon, unspecified part of colon, unspecified type from Last 3 Months Results * PATHOLOGY TISSUE (08/13/2024 8:22 AM CDT) Case Report Surgical Pathology Report Case: [id number] Authorizing Provider: Fortino Betancourt, Collected: 08/13/2024 08:22 AM Ordering Location: [facility] Received: 08/13/2024 09:48 AM Pathologist: Beth Young MD Specimens: A) - Polyp Ascending, Ascending colon polyp B) - Polyp Transverse, Transverse colon polyp EMR C) - Polyp Descending, Descending colon polyp 08/16/2024 3:22 PM CDT [facility] Final Diagnosis Large intestine, ascending colon polyp, biopsy (A): - Tubular adenoma Large intestine, transverse colon polyp EMR, polypectomy (B): - Tubular adenoma, fragmented Large intestine, descending colon polyp, biopsy (C): - Tubular adenoma(s), fragmented 08/16/2024 3:22 PM CDT [facility] at 1522 CDT Microscopic Description and Comment Microscopic examination substantiates the final diagnosis. 08/16/2024 3:22 PM CDT [facility] Clinical History The patient is a 53-year-old man who presents for therapeutic procedure for colon polyps. Operative procedure/findings: Colonoscopy - 8 mm ascending colon polyp, six 4-12 mm transverse colon polyps, 20 mm transverse colon polyp, all resected and retrieved. 08/16/2024 3:22 PM CDT [facility] Gross Description The requisition and specimen(s) are identified with the patient's name, Bernard Tan. Received in formalin, specimen A , is a 1.1 x 0.6 x 0.3 cm crowder-red, nodular polypoid structure with a white, cauterized base. The base is inked blue. The specimen is serially sectioned and submitted entirely as cassette A1. Received in formalin, specimen B are multiple fragments of crowder-red, glistening, nodular and focally hemorrhagic soft tissue, ranging from 0.2 to 1.6 cm in greatest dimension and measuring 2.0 x 1.4 x 0.8 cm in aggregate. The largest fragment contains a distinct crowder-white, cauterized base, that is inked blue. Sectioning the largest fragment shows a pink-crowder, glistening, striated cut surface. The smaller fragments are submitted in cassette B1 and the largest fragment is submitted in cassette B2. Received in formalin, specimen C are 5 pink-crowder, glistening, nodular and focally hemorrhagic soft tissue fragments, ranging from 0.3 to 0.7 cm and measuring 1.2 x 1.1 x 0.3 cm in aggregate, submitted in toto as cassette C1. AL 08/16/2024 3:22 PM [facility] Pathologist Location at [facility] 08/16/2024 3:22 PM [facility] Disclaimer The performance characteristics of all immunohistochemical and indirect immunofluorescence stains (if any) cited in this report were determined by the Histopathology Laboratory of [facility]. Some of these tests were developed by our own laboratory and have not been cleared or approved by the US Food and Drug Administration. The FDA does not require this test to go through premarket FDA review. These tests are used for clinical purposes. They should not be regarded as investigational or for research. This laboratory is certified under the Clinical Laboratory Improvement Amendments (CLIA) as qualified to perform high complexity clinical laboratory testing. This case has been personally reviewed and interpreted by the attending (teaching) pathologist. 08/16/2024 3:22 PM [facility] LAB Embedded Images 08/16/2024 3:22 PM [facility] Biopsy, NOS POLYP / Unknown 08/13/2024 8 :22 AM CDT 08/13/2024 9:48 AM CDT Comment:Pre-op diagnosis: Polyp of colon, unspecified part of colon, unspecified type [K63.5] Biopsy, NOS POLYP / Unknown 08/13/2024 8 :22 AM CDT 08/13/2024 9:48 AM CDT Comment:Pre-op diagnosis: Polyp of colon, unspecified part of colon, unspecified type [K63.5] Biopsy, NOS POLYP / Unknown 08/13/2024 8 :34 AM CDT 08/13/2024 9:48 AM CDT Comment:Pre-op diagnosis: Polyp of colon, unspecified part of colon, unspecified type [K63.5] us Fortino Damico MD LAB - PATHOLOGY/CYTO LOGY ORDERABLES Final Result [facility] [address] [place] [address], [facility] [phone] * Endoscopy, Colon, Diagnostic (08/13/2024 8:07 AM CDT) Report Endoscopy POC Endoscopy Department Report _ Patient Name: Bernard Tan Procedure Date: 08/13/2024 8:07 AM Date of : 1970 Classification: Outpatient Gender: Male Ethnicity: Not or Race: White _ Providers: Fortino Damico MD Referring MD: Molina Fabian MD Procedure: Colonoscopy Indications: Therapeutic procedure for colon polyps Medications: Monitored Anesthesia Care. See the Anesthesia note for documentation of the administered medications. Patient Profile: 53M presents as direct access referral for colonoscopy w/ possible polypectomy / EMR. Recent exam at OSH 07/2024: Two subcm AC polyps removed (TA), one subcm TVC polyp removed (TA), one 15 mm mid/distal TVC polyp not removed, one 20 mm RS pedunculated polyp removed (TA), one 20 mm rectal polyp removed (TA). Description of Procedure: After I obtained informed consent, the scope was passed under direct vision. Throughout the procedure, the patient's blood pressure, pulse, and oxygen saturations were monitored continuously. The [id number]-[id number] was introduced through the anus and advanced to the cecum, identified by appendiceal orifice and ileocecal valve. The colonoscopy was performed without difficulty. The patient tolerated the procedure well. The quality of the bowel preparation was evaluated using the BBPS (Greeley Bowel Preparation Scale) with scores of: Right Colon = 2 (minor amount of residual staining, small fragments of stool and/or opaque liquid, but mucosa seen well), Transverse Colon = 3 (entire mucosa seen well with no residual staining, small fragments of stool or opaque liquid) and Left Colon = 2 (minor amount of residual staining, small fragments of stool and/or opaque liquid, but mucosa seen well). The total BBPS score equals 7. The quality of the bowel preparation was adequate. Findings: An 8 mm polyp was found in the ascending colon. The polyp was sessile. The polyp was removed with a cold snare. Resection and retrieval were complete. Six sessile polyps were found in the transverse colon. The polyps were 4 to 12 mm in size. These polyps were removed with a cold snare. Resection and retrieval were complete. A 20 mm polyp was found in the transverse colon. The polyp was sessile. Preparations were made for mucosal resection. Eleview was injected to raise the lesion. Piecemeal mucosal resection using a snare was performed. Resection and retrieval were complete. Resected tissue margins were examined and clear of polyp tissue. To prevent bleeding after the polypectomy, two hemostatic clips were successfully placed (MR conditional). Clip casing splitter: Cell-A-Spot. There was no bleeding at the end of the procedure. Five sessile polyps were found in the descending colon. The polyps were 6 to 10 mm in size. These polyps were removed with a cold snare. Resection and retrieval were complete. Scattered small and large-mouthed diverticula were found in the descending colon. The exam was otherwise without abnormality on direct and retroflexion views. The perianal and digital rectal examinations were normal. Estimated Blood Loss: Estimated blood loss was minimal. Complications: No immediate complications. Impression: - One 8 mm polyp in the ascending colon, removed with a cold snare. Resected and retrieved. - Six 4 to 12 mm polyps in the transverse colon, removed with a cold snare. Resected and retrieved. - One 20 mm polyp in the transverse colon, removed with mucosal resection (EMR). Resected and retrieved. Two clips placed for prophylaxis (DuraClip, MR conditional). - Five 6 to 10 mm polyps in the descending colon, removed with a cold snare. Resected and retrieved. - Diverticulosis in the descending colon. - The examination was otherwise normal on direct and retroflexion views. Moderate Sedation: . Recommendation: - Monitor for fevers, bleeding, pain. - Resume previous diet as tolerated. - Hold any anticoagulant medications ( blood thinners ) for 2 days. Resume rest of home medications today. - Follow-up pathology / biopsy results. Further management accordingly. - Follow-up with the referring provider. Should plan for repeat Colonoscopy in 1 year. - Further evaluation by Genetics Counselor to rule out underlying hereditary / genetic disorder. - Early colorectal cancer screening of first degree relatives via Colonoscopy. - The potential complications and concerning symptoms/findings, including but not limited to early or delayed fevers, infection, pain, bleeding, perforation, were discussed with the patient/caregiver. Emergency contact information was provided. Attending Participation: I personally performed the entire procedure. Procedure Code(s): --- Professional --- 35139, Colonoscopy, flexible; with endoscopic mucosal resection 73487, 59, Colonoscopy, flexible; with removal of tumor(s), polyp(s), or other lesion(s) by snare technique Diagnosis Code(s): --- Professional --- D12.2, Benign neoplasm of ascending colon D12.3, Benign neoplasm of transverse colon (hepatic flexure or splenic flexure) D12.4, Benign neoplasm of descending colon K63.5, Polyp of colon K57.30, Diverticulosis of large intestine without perforation or abscess without bleeding CPT copyright 2021 [employer]. All rights reserved. The codes documented in this report are preliminary and upon senior underwriting assistant review may be revised to meet current compliance requirements. Fortino Damico MD 08/13/2024 8:47:37 AM Note Initiated On: 08/13/2024 8:07 AM Number of Addenda: 0 [facility] [address] [place] [address] [facility] 08/13/2024 8:07 AM CDT us Fortino Damico MD GI PROCEDURE ORDERAB LES Edited Result - Final [facility] from Last 3 Months Insurance [employer] SELF PAY NO INSURANCE Member Subscriber Plan / Payer (Ef fective for All Dates) Name:Bernard Tan Member ID:Not on file Relation to Subscriber:Not on file Name:BERNARD TAN Subscriber ID:Not on file (Home) Address: [address] [place] [address] Payer ID:Not on file Group ID:Not on file Type:Self Pay Address: [place], [place] Care Teams Blend Technician Relationship Specialty Start Date End Date Tunde Mcdaniel MD [address] [place] [address] [address] [place] [address] PCP - General Internal Medicine 08/13/24
--- OUTSIDE RECORDS SUMMARY | 2024-09-08 07:11 | XMS_ITS | Data Portability ---
Author Organization [place] [facility], Main Office Address [address] [place] [address] Assessment No assessment recorded. Plan of Treatment Reminders Order Date Submit Date Provider Last Modified By Organization Details Last Modified Time Details Appointments None recorded . Lab CMP, serum or plasma 025 09/08/19 25 [facility], [address], [place], [address], 5 15:25:32 CMP, serum or plasma 025 09/08/19 25 [facility], [address], [place], [address], 5 15:25:30 lipid panel, serum 025 09/08/19 25 [facility], [address], [place], [address], 5 15:25:30 CBC w/ auto diff 025 09/08/19 25 [facility], [address], [place], [address], 5 15:25:31 PSA, serum or plasma 024 03/09/20 24 [facility], [address], [place], [address], 4 12:25:38 CBC w/ auto diff 024 03/09/20 24 [facility] [facility], [address], [place], [address], 4 09:59:17 CMP, serum or plasma 024 03/09/20 24 [email or web address] [facility], [address], [place], [address], 4 12:23:38 lipid panel, serum 024 03/09/20 24 [email or web address] [facility], [address], [place], [address], 4 12:25:38 T4, free, serum 024 03/09/20 24 [email or web address] [employer] [facility], [address], [place], [address], 4 09:53:34 TSH, serum or plasma 024 03/09/20 24 [employer] [facility], [address], [place], [address], 4 12:25:38 Referral None recorded . Procedures None recorded . Surgeries None recorded . Imaging None recorded . Medication Orders None recorded . Patient TargetsNo targets recorded. Patient Instructions Encounter Date Encounter Id Patient Instructions Last Modified By Organization Details Last Modified Time 07/07/2023 [id number] Follow-up for seizure disorder and hypertension clinically [...] and has a further testing schedule a White next week. Otherwise is doing well otherwise. Follow-up in his regular scheduled appointment. Portions of the record may have been created with voice recognition software. Occasional wrong-word or mllsf-g-fiez substitutions may have occurred due to the inherent limitations of voice recognition software. Read the chart carefully and recognize, using context, where substitutions have occurred. Keep Appt: Fri 01:50 PM Kiki [email or web address] Not available 07/07/2023 12:08:01 07/25/2023 [id number] Essential hypertension currently clinically stable. Instructed try to take the losartan at bedtime to see if there is better control in the extension associate hours and probably help prevent any problems with any transient hypo tension later in the day. Already has a follow-up appointment. Keep Appt: Fri 01:50 PM [place] Portions of the record may have been created with voice recognition software. Occasional wrong-word or fuxtf-r-apxn substitutions may have occurred due to the inherent limitations of voice recognition software. Read the chart carefully and recognize, using context, where substitutions have occurred. Not available 07/25/2023 15:17:09 11/04/2023 [id number] Follow-up for essential hypertension, aortic stenosis, hyperlipidemia and seizure disorder all clinically stable. Is followed on a regular basis by Cardiology. He is scheduled to see Neurology within the next month. Will continue on current Rx follow-up in four months. Next Appointment: 4 Months Approximate Date: 03/03/2024 Portions of the record may have been created with voice recognition software. Occasional wrong-word or mjqfc-k-gqoa substitutions may have occurred due to the inherent limitations of voice recognition software. Read the chart carefully and recognize, using context, where substitutions have occurred. [email or web address] Not available 11/04/2023 15:41:04 03/09/2024 [id number] Follow-up for essential hypertension, hyperlipidemia, aortic stenosis [...] with voice recognition software. Occasional wrong-word or gmmdi-n-ydsb substitutions may have occurred due to the inherent limitations of voice recognition software. Read the chart carefully and recognize, using context, where substitutions have occurred. Not available 03/09/2024 15:16:03 09/07/2024 [id number] Follow-up essent ial hypertension, hyperlipidemia, aortic stenosis as well as adenomatous polyps of the colon. Clinically stable. Will continue on current medications at this time recheck a blood count in the form of CBC, CMP, lipid. Continue on current Rx follow-up in six months Follow Up: 6 Months Approximate Date: 03/06/2025 Portions of record are template driven. When necessary additional context will be provided. Additionally some portions have been created with voice recognition software. Occasional wrong-word or wrxkj-k-yleu substitutions may have occurred due to the inherent limitations of voice recognition software. Read the chart carefully and recognize, using context, where substitutions may have occurred. Created: Tunde Mcdaniel M.D. 09.07.2024 02:24 PM [email or web address] Not available 09/07/2024 15:24:51 Reason for Referral None Reported. Results Created [...] is negat zaheer. TEST DESCR IPTIO N: [facility] site algor ithmi c devi sis of stool DNA-b tom gore with hemog lobin immun oassa y. Quant itati ve value s of indiv idual bioma rkers are not repor table and are not assoc iated with indiv idual bioma rker resul t refer ence range s. Colog uard is inten ded for color ectal cance r scree colton of adult s of eithe r sex, 45 years or older , who are at [facility] for color ectal cance r ([facility]) . Colog uard has been appro orly for use by the U.S. FDA. The perfo rmanc e of Colog uard was estab lishe d in a cross secti onal study of [facility] adult s aged 50-84 . Colog uard perfo rmanc e in patie nts ages 45 to 49 years was estim ated by edita-kelly nye devi sis of near- age group s. Colon oscop ies perfo rmed for a posit zahere resul t may find as the most [...] cross -sect ional scree colton study of 0 indiv idual s at [facility] risk for color ectal cance r who [...] inter niki is every 3 years . (Amer ican Cance r Socie ty and U.S. Multi -Soci ety Task Force ). Colog uard perfo rmanc e data in a 0 patie nt pivot al study using colon oscop y as the refer ence metho d can be acces sed at the follo wing locat ion: www.e xactl abs.c om/re marcelino . Addit ional descr iptio n of the Colog uard test proce ss, warni ngs and preca ution s can be found at www.c curtis jaison.c om. Not Available [facility] (Cologuard Orders Only) [address], [place], [address], 04/01/2024 07:32:06 06/26/19 24 06/26/2023 XR, chest , 1 view No observ ation record ed. [address], [place], [address], 06/26/2023 08:30:20 06/26/19 24 06/26/2023 CT, brain , w/o contr ast No observ ation record ed. [address], [place], [address], 06/26/2023 10:09:18 06/26/19 24 06/26/2023 XR, lumba r spine No observ ation record ed. [email or web address] [address], [place], [address], 06/30/2023 12:08:33 06/27/19 24 06/27/2023 marni nuous EEG monit oring , profe ssion al compo nent; 12-26 hrs, with VEEG (PROC ) No observ ation record ed. [address], [place], [address], 06/27/2023 14:24:53 06/30/19 24 06/30/2023 CT, angio gram, neck, w/ contr ast No observ ation record ed. [address], [place], [address], 07/01/2023 07:52:08 Result Notes None recorded. Problems Name Problem SNOMED Code Status Onset Date Resolution Date Notes Provider Name and Address Organization Details Recorded Time Chest wall pain 004236121 Active 2016 Not Available [facility] 3 15:25:31 Lateral epicondylitis 094354689 Active Not Available [facility] 3 15:25:31 Shoulder strain 239686172 Active Not Available [facility] 3 15:25:31 Abscess of scrotum 19985477 Active Not Available [facility] 3 15:25:31 Pain of multiple joints 45149068 Active 2016 Not Available [facility] 3 15:25:31 Tenosynovitis of wrist 180918838 Active Not Available [facility] 3 15:25:31 Aortic valve stenosis 87817438 Active 2023 Tunde Mcdaniel MD [address], [place], [address] , [place] [facility] 4 16:48:17 Essential hypertension 12313498 Active 2023 Tunde Mcdaniel MD [address], [address], [place], [address] , [place] [facility] 4 16:48:25 Confusional state 750271639 Active 2023 Tunde Mcdaniel MD [address], [address], [place], [address] , [place] [facility] 4 16:56:11 Seizure disorder 136162976 Active 2023 Tunde Mcdaniel MD [address], [address], [place], [address] , [place] [facility] 4 12:04:01 Hyperlipidemi a 23957087 Active 2023 Rachna Guzman CMA null, [place] [facility] 4 15:05:45 Furuncle 703804345 Active 2023 Tunde Mcdaniel MD [address], [address], [place], [address] , [place] [facility] 4 10:45:04 Disorder of prostate 02052766 Active 2023 Tunde Mcdaniel MD [address], [address], [place], [address] , [place] [facility] 4 15:15:47 Colorectal cancer detected by DNA-based stool screening 739411375 Active 2023 Rachna Guzman CMA null, [place] [facility] 4 12:28:58 Adenomatous polyp of colon 460225474 Active 2024 Tunde Mcdaniel MD [address], [address], [place], [address] , [employer] 5 15:19:07 Problem Notes None recorded. Procedures Surgical History None recorded. Imaging Results Imaging Date Name Status LastModified by Organization Details LastModified Time 06/26/2023 XR, chest, 1 view completed [address] [place] [address], [address], 06/26/2023 08:30:20 06/26/2023 CT, brain, w/o contrast completed [address] [place] [address], [address], 06/26/2023 10:09:18 06/26/2023 XR, lumbar spine completed [address], [address], 06/30/2023 12:08:33 06/27/2023 continuous EEG monitoring, professional component; 12-26 hrs, with VEEG (PROC) completed [address], [address], 06/27/2023 14:24:53 06/30/2023 CT, angiogram, neck, w/ contrast completed [address], [address], 07/01/2023 07:52:08 Procedure Notes None recorded. Medical Equipment None Reported. Allergies Allergen ID Allergen Name Allergen Category Reaction Reaction Severity Criticality Documentation Date Start Date Code Code System Note Provider Name and Address Organization Details Recorded Time 09357 amoxicill in medicatio n rash mild unabletoasse ss 12/11/2023 723 RxNorm Tunde Mcdaniel MD [address] [facility], [facility] [address], [place], [address], [employer] 4 10:44:57 Medications Name Sig Start Date Stop Date Status Note LastModified by Organization Details LastModified Time losartan 50 mg tablet TAKE 1 TABLET BY MOUTH EVERY DAY active Not Available Not Available No t Available azithromycin 250 mg tablet TAKE 1 TABLET [...] Updated DateTime 4 180.34 cm 27.7 kg/m2 98903.0 9 g 71 /min 97 [degF] 95 % 95 % 104 mm[Hg] 60 mm[Hg] Maida [facility] 4 11:53:02 Date Recorded Body height Body mass index (BMI) Body weight Heart rate Body temperature Oxygen saturation Oxygen saturation in Arterial blood by Pulse oximetry Systolic blood pressure Diastolic blood pressure Provider Name and Address Organization Details Last Updated DateTime 4 180.34 cm 27.9 kg/m2 56239.4 7 g 68 /min 97 [degF] 96 % 96 % 108 mm[Hg] 60 mm[Hg] Maida [facility] [employer] [facility] 4 14:44:15 Date Recorded Body height Body mass index (BMI) Body weight Heart rate Body temperature Oxygen saturation Oxygen saturation in Arterial blood by Pulse oximetry Systolic blood pressure Diastolic blood pressure Provider Name and Address Organization Details Last Updated DateTime 4 180.34 cm 27.9 kg/m2 81463.4 7 g 55 /min 97.7 [degF] 97 % 97 % 120 mm[Hg] 70 mm[Hg] Kaylie Lee [facility] 4 15:06:40 Date Recorded Body height Body mass index (BMI) Body weight Heart rate Body temperature Oxygen saturation Oxygen saturation in Arterial blood by Pulse oximetry Systolic blood pressure Diastolic blood pressure Provider Name and Address Organization Details Last Updated DateTime 4 180.34 cm 28.2 kg/m2 75374.6 6 g 71 /min 97 [degF] 97 % 97 % 130 mm[Hg] 70 mm[Hg] Kaylie Lee [facility] 4 15:00:50 Date Recorded Body height Body mass index (BMI) Body weight Heart rate Body temperature Oxygen saturation Oxygen saturation in Arterial blood by Pulse oximetry Systolic blood pressure Diastolic blood pressure Provider Name and Address Organization Details Last Updated DateTime 5 180.34 cm 28.6 kg/m2 49494.4 4 g 69 /min 97 [degF] 95 % 95 % 134 mm[Hg] 72 mm[Hg] Maida [facility] [employer] [facility] 5 15:12:51 Social History None recorded. Functional Status None recorded. Mental Status None recorded. Family History Nothing Reported. Medical History Condition Response BLINDNESS N NERVE [...] DISEASE N PROSTATE N HEART ARRHYTHMIA N INSOMNIA N ESRD N HIGH CHOLESTEROL / HYPERLIPIDEMIA N HYPERTHYROIDISM N EYE PROBLEMS N PVD N EDEMA N CHRONIC PAIN SYNDROME N HYPOTHYROIDISM N CONSTIPATION N CAROTID BLOCKAGE N BACK / NECK PROBLEMS N HAVE YOU BEEN HOSPITALIZED OR SEEN IN [facility] IN THE PAST YEAR ? N ATHEROSCLEROSIS [...] N ALZHEIMER'S DISEASE N Brain Problems N HERPES N DEMENTIA N SEIZURES/EPILEPSY N HEADACHES/MIGRAINES N VASCULAR DISEASE N PACEMAKER N DIZZINESS N KIDNEY DISEASE N HEART DISEASE/HEART PROBLEMS N MULTIPLE SCLEROSIS N NEUROPSYCHOLOGICAL N CARDIAC ARRHYTHMIA N CANCER: SPECIFY N Gall Stones N ATRIAL FIBRILLATION N PULMONARY EMBOLISM N AUTOIMMUNE DISEASE N Past Encounters Encounter ID Performer Location Encounter Start Date Encounter Closed Date Diagnosis/Indication Diagnosis SNOMED-CT Code Diagnosis ICD10 Code Diagnosis Note [id number] MD RICARDO [facility] [address] [facility] [address] [place] [address] 05/14/2023 16:36:08 05/14/2023 17:15:36 Adult health examination 587613687 Z00.00 Depression screening 171 996171 Z13.31 Confusional state 039632 003 F44.89 Aortic valve stenosis 60 056477 I35.0 Essential hypertension 76823695 I10 [id number] Tunde Mcdaniel MD [facility] Internal [facility] [address] [address] 06/25/2023 14:27:04 06/25/2023 14:59:25 Essential hypertension 05124928 I10 Aortic valve stenosis 60 264160 I35.0 [id number] Tunde Mcdaniel MD [facility] Internal Med [facility] [address] [address] 07/07/2023 11:52:03 07/08/2023 09:01:26 Seizure disorder 493904779 G40.295 [id number] Tunde Mcdaniel MD [facility] [place] [address] [place] [address] [place] [address] 07/25/2023 14:25:39 07/25/2023 15:24:44 Essential hypertension 88383741 I10 [id number] Tunde Mcdaniel MD [facility] [place] [address] [place] [address] [place] [address] 11/04/2023 15:00:03 11/04/2023 15:45:19 Essential hypertension 11424347 I10 Aortic valve stenosis 60 840462 I35.0 Hyperlipidemia 18665816 E78.5 Seizure disorder 6173316 02 G40.826 [id number] Tunde Mcdaniel MD [facility] [place] [address] [place] [address] [place] [address] 03/09/2024 14:33:41 03/09/2024 15:21:05 Essential hypertension 78100234 I10 Hyperlipidemia 61061325 E78.5 Aortic valve stenosis 60 798068 I35.0 Seizure disorder 1542423 02 G40.909 Disorder of prostate 302 [address] N42.9 [id number] Tunde Mcdaniel MD [facility] [address] [address] 09/07/2024 15:08:49 09/07/2024 15:27:15 Essential hypertension 55623652 I10 Hyperlipidemia 60291093 E78.5 Aortic valve stenosis 60 256170 I35.0 Adenomatou s polyp of colon 026837818 D12.3 Health Concerns Section Related Observation LastModified by Organization Detai ls LastModified Time None Recorded Concern Status LastModified by Organization Details LastModified Time None Recorded Advance Directives Directive None Recorded Payers Encounter Date Sequence Insurance Name Policy Number Policy Carrillo Covered Member ID Carrillo Member ID Guarantor Name 07/07/2023 1 [facility] - OPEN CHOICE - NAP (PPO) [id number] Hodan Loving [id number] Bernard Loving 07/25/2023 1 [facility] - OPEN CHOICE - NAP (PPO) [id number] Hodan Loving [id number] Bernard Loving 11/04/2023 1 [facility] - OPEN CHOICE - [employer]AP (PPO) [id number] Hodan Loving [id number] 32 Bernard Loving 03/09/2024 1 [facility] - OPEN CHOICE - NAP (PPO) [id number] Hodan Loving [id number] Bernard Loving 09/07/2024 1 [facility] - OPEN CHOICE - NAP (PPO) [id number] Hodan Loving [id number] Bernard Loving Notes Date Note Type Note Provider Name and Address Organization Details Recorded Time text/html Patient Name: Bernard LovingDate Of Service: Friday ( 07.07.2023 ): 1970 [...] Systemic Symptoms:none Medication Reconciliation: from medication list. [id number]: Echocardiogram estimated ejection fraction greater than 70%. [...] Potassium 50 MG TABLET Once Daily Surgical Atjfajh5550-67 Lap Sigmoidectomy Preventative Hianoic0608/28/2019 ALBUMIN 4.4 G/DL N008/28/2019 PSA 0.3 NG/ML N105/16/2011 COLONOSCOPY 03/16/2022 Social HistoryMarriedSmokes two packs daily for over 15 yearsDrinks sociallyGraphics designerFamily HistoryMother 78 HTN, Carcinoma of BreastFather 79 high cholesterol and Thyroid noduleOne brother living and in good healthTwo sisters living and in good health Tunde Mcdaniel MD [address] [facility] [address], [place], [address], [facility] 07/07/2023 12:08:20 4 text/html Patient Name: Bernard [...] Systemic Symptoms:none Medication Reconciliation: from medication list. [id number]: Echocardiogram estimated ejection fraction greater than 70%. [...] Potassium 50 MG TABLET Once Daily Surgical Wfefsfr9848-69 Lap Sigmoidectomy Preventative Odockdi9508/28/2019 ALBUMIN 4.4 G/DL N008/28/2019 PSA 0.3 NG/ML N105/16/2011 COLONOSCOPY 03/16/2022 Social HistoryMarriedSmokes two packs daily for over 15 yearsDrinks sociallyGraphics designerFamily HistoryMother 78 HTN, Carcinoma of BreastFather 79 high cholesterol and Thyroid noduleOne brother living and in good healthTwo sisters living and in good health Tunde Mcdaniel MD [address] [facility] [address], [address], [place], [address], [place] [facility] 07/25/2023 15:17:36 4 text/html Patient Name: Bernard Bowlingte Of Service: Friday ( 11.04.2023 ): 1970 [...] Systemic Symptoms:none Medication Reconciliation: from medication list. Irbqnuqzsfr21-68-2072: Echocardiogram estimated ejection fraction greater than 70%. [...] DailyRosuvastatin 10 MG TABLET One Daily Surgical Zvwncki3842-90 Lap Sigmoidectomy Preventative Modmqhb3208/28/2019 ALBUMIN 4.4 G/DL N008/28/2019 PSA 0.3 NG/ML N105/16/2011 COLONOSCOPY 03/16/2022 Social HistoryMarriedSmokes two packs daily for over 15 yearsDrinks sociallyGraphics designerFamily HistoryMother 78 HTN, Carcinoma of BreastFather 79 high cholesterol and Thyroid noduleOne brother living and in good healthTwo sisters living and in good health Tunde Mcdaniel MD [address] [facility], [facility] [address], [place], [address], [facility] [place] 11/04/2023 15:41:15 4 text/html Patient Name: Bernrad LovingDate Of Service: Friday ( 03.09.2024 ): 1970 [...] Systemic Symptoms:none Medication Reconciliation: from medication list. Zlsivfrqbxj86-20-2392: Echocardiogram estimated ejection fraction greater than 70%. [...] DailyRosuvastatin 10 MG TABLET One Daily Surgical Ffwnpct2384-59 Lap Sigmoidectomy Preventative Testing( ) 08/28/2019 Albumin 4.4 G/DL N(X) 08/28/2019 PSA 0.3 NG/ML N 08/27/2020(X) 03/16/2012 Colonoscopy 03/16/2022 Social HistoryMarriedSmokes two packs daily for over 15 yearsDrinks sociallyGraphics designerFamily HistoryMother 78 HTN, Carcinoma of BreastFather 79 high cholesterol and Thyroid noduleOne brother living and in good healthTwo sisters living and in good health Tunde Mcdaniel MD [address] [facility], [facility] [address], [place], [address], [place] [facility] 03/09/2024 15:16:33 5 text/html Patient Name: Bernard Bowlingte Of Service: Friday ( 09.07.2024 ): 1970 Age: 53 Chief Complaint: Addressed in HPI Problems or conditions discussed in the HPI were the only ones reviewed during the encounter.Only social and family history addressed in the HPI were reviewed during this encounter. Attendant(s): NoneConstitutional and Systemic Symptoms:none Medication Reconciliation: from medication list. [id number]: Echocardiogram estimated ejection fraction greater than 70%. [...] moderate stenosis but no significant obstructive disease. 07-28-2024: Colonoscopy demonstrated tubular adenomas in the transverse ascending and sigmoid colon. All negative biopsies recommended follow-up colonoscopy in six months. History of Present Illness #1. Essential Hypertension: [...] does not need a repeat echocardiogram. #4. History of adenomatous polyps of the colon clinically stable. No interval complaints of any GI bleed or any other associated symptoms. Active Medication ListLevetiracetam 500 MG TABLET, EXTENDED RELEASE 4 Tabs DailyLosartan Potassium 50 MG TABLET Once DailyAspirin 81 MG CAPSULE One DailyRosuvastatin 10 MG TABLET One Daily Surgical Rkmfoyy7765-76 Lap Sigmoidectomy Preventative Testing( ) 07/28/2024 Colonoscopy ( 6 Months ) 01/28/2025( ) 03/18/2024 PSA 0.5 03/18/2025( ) 08/28/2019 Albumin 4.4 G/DL N Social HistoryMarriedSmokes two packs daily for over 15 yearsDrinks sociallyGraphics designerFamily HistoryMother 81 HTN, Carcinoma of BreastFather 82 high cholesterol and Thyroid noduleOne brother living and in good healthTwo sisters living and in good health Tunde Mcdaniel MD [address], [facility] [address], [place], [address], [place] [facility] 09/07/2024 15:25:07
--- OUTSIDE RECORDS SUMMARY | 2024-09-08 07:11 | XMS_ITS | Continuity of Care Document ---
Author Organization [facility] Address [address] [facility] [address] [place] [address] Phone Care Team Providers Care Construction Assistant Name Role Phone Bubba Nagel Unavailable Unavailable Procedures Procedure Date Office/outpatient Visit, Est Eye Exam, New Patient Advance Directives Directive Yes / No Effective Date File Name No Information Encounters Encounter Description Practice Location Reason(s) For Visit Diagnoses Date Provider Providers Copied on Encounter Office/outpat ient Visit, Est [facility], [address], [place], [place], [id number], [place] tel:[phone] [facility] No Information Jul-1 8-200 9 Shona Mac. [address] [place] [address], [place], [place], [facility], [place]. tel:[phone] [facility], [address] [place] [address] [address], [place], [place], [id number], [place] tel:[phone] [facility] No Information Jul-0 9-200 9 Doisy Edward. [address], [place], [address], [place]. tel:[phone] Family History Family Member Type Diagnosis Age At Onset No Information Payers Payer name Insurance type Covered constitution party ID Authoriza tiole(s) [facility] [id number] Social History Type Description Quantity Date Captured [...]
--- OUTSIDE RECORDS SUMMARY | 2024-09-08 07:11 | XMS_ITS | Clinical Summary ---
Author Organization [facility] [address] Address [address] [place] [address] Care Team Providers Care Wind Energy Engineer Name Role Phone Tunde Mcdaniel MD Primary Care Provider Allergies Active Allergy Reactions Criticality Noted Date Comments Ampicillin Unknown 06/04/2023 Medications aspirin 81 mg enteric coated tabletIndicatio ns:Coronary artery disease involving atka coronary artery of atka heart without angina pectoris Take 1 tablet [...] 10 mg tabletIndicatio ns:Coronary artery disease involving atka coronary artery of atka heart without angina pectoris Take 1 tablet [...] bruit 04/08/2024 Coronary artery disease invo lving atka coronary artery of atka heart without angina pectoris 07/11/2023 Tobacco abuse [...] on file Legal Sex Male 11:25 AM 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 Gender Identity Not on file Sexual Orientation Not on file Obstetrics History Last Filed Vital Signs Vital Sign Reading Time Taken Comments Blood Pressure 138/82 04/08/2024 8:22 AM 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 Pulse 68 04/08/2024 8:22 AM 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 Temperature - - Respiratory Rate - - Oxygen Saturation 96% 04/08/2024 8:22 AM 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 Inhaled Oxygen Concentration - - Weight 94.8 kg (209 lb) 04/08/2024 8:22 AM 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 Height 182.9 cm (6') 04/08/2024 8:22 AM 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 Body Mass Index 28.35 04/08/2024 8:22 AM 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 Plan of Treatment Health Maintenance Due Date Last Done Comments Colon Cancer Screening-Colonoscopy 1970 Depression Screening 1970 Hepatitis C Screening 1970 Prostate Cancer Screening-PSA 1969 DTaP/Tdap/Td Vaccine (1 - Tdap) 1980 Hepatitis B Screening 12/03/1987 Regular Well Visit/Exam 18-64 12/03/1987 Zoster Vaccine (1 of 2) 12/03/2019 Covid-19 Vaccine (2023-2 5 season) 2024 08/22/2020, 08/01/2020 Influenza Vaccine (Season Ended) 2025 02/05/2020 Pneumococcal vaccine <65 Aged Out No longer eligible based on patient's age to complete this topic Insurance AETNA COVENTRY HMO/POS AETNA COVENTRY HMO/POS Care Teams Wind Energy Engineer Relationship Specialty Start Date End Date Tunde Mcdaniel MD [address] [address] PCP - General Internal Medicine 05/07/23
--- OUTSIDE RECORDS SUMMARY | 2024-09-08 07:12 | XMS_ITS | Continuity of Care Document ---
Author Organization [place] [facility] [employer] [facility], [facility] Internal Med [facility] Address [address] [address] Assessment No assessment recorded. Plan of Treatment Reminders Order Date Submit Date Provider Last Modified By Organization Details Last Modified Time Details Appointments None recorded . Lab CMP, serum or plasma 025 09/08/19 25 [facility], [facility] [address], [address], [place], [address], 5 15:25:32 CMP, serum or plasma 025 09/08/19 25 [place], [facility] [address] [address], [address], [place], [address], 5 15:25:30 lipid panel, serum 025 09/08/19 25 [place] [facility], [facility] [address] [address], [address], [place], [address], 5 15:25:30 CBC w/ auto diff 025 09/08/19 25 [place] [facility], [facility] [address] [address], [address], [place], [address], 5 15:25:31 Referral None recorded . Procedures None recorded . Surgeries None recorded . Imaging None recorded . Medication Orders None recorded . Patient TargetsNo targets recorded. Patient Instructions Encounter Date Encounter Id Patient Instructions Last Modified By Organization Details Last Modified Time 09/07/2024 [id number] Follow-up essential hypertension, hyperlipidemia, aortic stenosis as well [...] with voice recognition software. Occasional wrong-word or [id number] substitutions may have occurred due to the inherent limitations of voice recognition software. Read the chart carefully and recognize, using context, where substitutions may have occurred. Created: Tunde Mcdaniel M.D. 09.07.2024 02:24 PM [email or web address] Not available 09/07/2024 15:24:51 Reason for Referral None Reported. Problems Name Problem SNOMED Code Status Onset Date Resolution Date Notes Provider Name and Address Organization Details Recorded Time Chest wall pain 228228879 Active 2016 Not Available [facility] 3 15:25:31 Lateral epicondylitis 673923778 Active Not Available [facility] 3 15:25:31 Shoulder strain 867501391 Active Not Available [facility] 3 15:25:31 Abscess of scrotum 11133403 Active Not Available [facility] 3 15:25:31 Pain of multiple joints 75977766 Active 2016 Not Available [facility] 3 15:25:31 Tenosynovitis of wrist 293399444 Active Not Available [facility] 3 15:25:31 Aortic valve stenosis 62807448 Active 2023 Tunde Mcdaniel MD [address], [place], [address] , [employer] [facility] 4 16:48:17 Essential hypertension 32273831 Active 2023 Tunde Mcdaniel MD [address], [place], [address] , [facility] 4 16:48:25 Confusional state 925502215 Active 2023 Tunde Mcdaniel MD [address], [place], [address] , [employer] [facility] 4 16:56:11 Seizure disorder 854260130 Active 2023 Tunde Mcdaniel MD [address], [place], [address] , [facility] [employer] [facility] [employer] [facility] 4 12:04:01 Hyperlipidemi a 60701110 Active 2023 RENNY Baum, [facility] [employer] [facility] 4 15:05:45 Furuncle 477803749 Active 2023 Tunde Mcdaniel MD [address], [place], [address] , [facility] [employer] [facility] [employer] [facility] 4 10:45:04 Disorder of prostate 77267064 Active 2023 Tunde Mcdaniel MD [address], [place], [address] , [facility] [employer] [facility] 4 15:15:47 Colorectal cancer detected by DNA-based stool screening 599861339 Active 2023 RENNY Baum, [facility] 4 12:28:58 Adenomatous polyp of colon 928191853 Active 2024 Tunde Mcdaniel MD [address], [employer], [place], [address] , [employer] [facility] 5 15:19:07 Problem Notes None recorded. Medical Equipment None Reported. Allergies Allergen ID Allergen Name Allergen Category Reaction Reaction Severity Criticality Documentation Date Start Date Code Code System Note Provider Name and Address Organization Details Recorded Time 99000 amoxicill in medicatio n rash mild unabletoasse ss 12/11/2023 723 [facility] Tunde Mcdaniel MD [address], [employer], [place], [address], [facility] 4 10:44:57 Medications Name Sig Start Date [...] Updated DateTime 5 180.34 cm 28.6 kg/m2 62829.4 4 g 69 /min 97 [degF] 95 % 95 % 134 mm[Hg] 72 mm[Hg] Maida Oates [place] [facility] [place] [facility] 5 15:12:51 Social History None recorded. [...] DIVERTICULITIS N SLEEP APNEA N CHICKENPOX N ALLERGIES/HAYFEVER N BACK INJECTIONS N INFECTIOUS DISEASE N PROSTATE N HEART ARRHYTHMIA N ESRD N INSOMNIA N HIGH CHOLESTEROL / HYPERLIPIDEMIA N EYE PROBLEMS N HYPERTHYROIDISM N PVD N EDEMA N CHRONIC PAIN SYNDROME N HYPOTHYROIDISM N CAROTID BLOCKAGE N CONSTIPATION N BACK / NECK PROBLEMS N HAVE YOU BEEN HOSPITALIZED OR SEEN IN [facility] ER IN THE PAST YEAR ? N ATHEROSCLEROSIS [...] SNOMED-CT Code Diagnosis ICD10 Code Diagnosis Note [id number] Tunde Mcdaniel MD [facility] Internal Med [facility] [address] [facility] [address] [place] [address] 09/07/2024 15:08:49 09/07/2024 15:27:15 Essential hypertension 65899712 I10 Hyperlipidemia 30600791 E78.5 Aortic valve stenosis 60 520887 I35.0 Adenomatou s polyp of colon 623309725 D12.3 Health Concerns Section Related Observation LastModified by Organization Detai ls LastModified Time None Recorded Concern Status LastModified by Organization Details LastModified Time None Recorded Payers Encounter Date Sequence Insurance Name Policy Number Policy Carrillo Covered Member ID Carrillo Member ID Guarantor Name 09/07/2024 1 [facility] (PPO) [id number] Hodan Nieto Fabienne [id number] Bernard Loving Notes Date Note Type Note Provider Name and Address Organization Details Recorded Time text/html Patient Name: Bernard PerryromanDate Of Service: Friday ( 09.07.2024 ): 1970 Age: 53 Chief Complaint: Addressed in HPI Problems or conditions discussed in the HPI were the only ones reviewed during the encounter.Only social and family history addressed in the HPI were reviewed during this encounter. Attendant(s): NoneConstitutional and Systemic Symptoms:none Medication Reconciliation: from medication list. [id number]: Echocardiogram estimated ejection fraction greater than 70%. [...] DailyRosuvastatin 10 MG TABLET One Daily Surgical [id number] Lap Sigmoidectomy Preventative Testing( ) 07/28/2024 Colonoscopy ( 6 Months ) 01/28/2025( ) 03/18/2024 PSA 0.5 03/18/2025( ) 08/28/2019 Albumin 4.4 G/DL N Social HistoryMarriedSmokes two packs daily for over 15 yearsDrinks sociallyGraphics designerFamily HistoryMother 81 HTN, Carcinoma of BreastFather 82 high cholesterol and Thyroid noduleOne brother living and in good healthTwo sisters living and in good health Tunde Mcdaniel MD [address] [facility], [facility] [address], [place], [address], [facility] [employer] 09/07/2024 15:25:07
[2024-09-08 07:49] LABS: Basophils Absolute Auto 0.1 K/mm3 (0.0-0.1); Basophils Percent Auto 0.8 % (0.2-1.2); Eosinophils Absolute Auto 0.6 K/mm3 (0-0.3); Eosinophils Percent Auto 6.2 % (0-4.4); Hematocrit 45.8 % (42.0-52.0); Hemoglobin 15.7 g/dL (14.0-18.0); Immature Granulocyte Absolute 0.04 K/mm3 (0.00-0.031); Immature Granulocyte Percent A 0.4 % (0-0.5); Lymphocytes Absolute Auto 2.25 K/mm3 (0.9-3.2); Lymphocytes Percent Auto 24.4 % (18.3-44.2); Mean Corpuscular HGB Conc 34.3 g/dl (32-36); Mean Corpuscular Hemoglobin 31.4 pg (26-34); Mean Corpuscular Volume 91.6 fl (80-100); Monocytes Absolute Auto 0.8 K/mm3 (0.1-0.6); Monocytes Percent Auto 8.6 % (2.6-8.5); Neutrophils Absolute Auto 5.5 K/mm3 (1.3-6.7); Neutrophils Percent Auto 59.6 % (45.5-73.1); Platelet Count Result 237 k/mm3 (150-375); Red Cell Distribution Width 11.9 % (11.5-14.5); White Blood Count 9.2 K/mm3 (4.5-10.0)
[2024-09-08 08:05] LABS: Alanine Aminotransferase 39 U/L (6-50); Albumin Level 4.5 g/dL (3.5-5.1); Alkaline Phosphatase 61 U/L (38-126); Anion Gap 10 mmol/L (4-12); Aspartate Amino Transferase 30 U/L (17-59); Bilirubin,Total 0.4 mg/dL (0.2-1.3); Blood Urea Nitrogen 11 mg/dL (9-20); Calcium 9.2 mg/dL (8.4-10.2); Carbon Dioxide 24 mmol/L (22-30); Chloride 108 mmol/L (98-107); Cholesterol 124 mg/dL (0-200); Estimated Glomerular Filt Rate > 60; Glucose 111 mg/dL (65-110); HDL Direct 53 mg/dL; Potassium 4.2 mmol/L (3.4-5.0); Sodium 142 mmol/L (137-145); Triglycerides 151 mg/dL (<150)
[2024-09-08 08:17] LABS: LDL Cholesterol Direct 42 mg/dL
== END 2024-09-08 07:09 | disposition home or self-care (01) ==
LOC: ANHLAB 07:09
PROVIDERS: PCP Internal Medicine; Visit Provider Internal Medicine
DX: E78.5 Hyperlipidemia, unspecified (principal)
CPT/HCPCS: 36415; 80053; 80061; 85025

== ENCOUNTER 2024-10-28 11:06 | Outpatient (CLI) | payer OTHER, SELFPAY ==
[2024-10-27 12:24] VITALS: BMI 28.4
--- NOTE | 2024-10-28 | ECHO_ITS ---
Patient Info Name: Bernard Loving Age: 53 years : 1970 Gender: Male Ht: 72 in Wt: 209 lbs BSA: 2.21 m2 Exam Date: 10/28/2024 12:29 PM Patient Status: O Admit Date: 10/28/2024 Exam Type: CA echo transesophageal Staff Attending Provider: Danny Salas Summary 1. There is moderate aortic stenosis. There is moderate aortic regurgitation. Medications See medication record for details. The posterior pharynx was sprayed with Cetacaine spray. Sedation was provided by the anesthesia team. Procedure Details The patient arrived in a fasting state after obtaining informed consent. The transesophageal probe was passed into the posterior pharynx, mid-esophagus, distal esophagus, and gastric fundus. Imaging was performed at multiple levels. The patient tolerated the procedure well and there were no complications. The patient was transferred out of the examination area in satisfactory condition. Left Ventricle The left ventricle is normal in size and systolic function. Right Ventricle The right ventricle is normal in size and systolic function. Atrial Septum The atrial septum is intact. Atrial Appendage The left atrial appendage is free of thrombus. Aortic Valve The aortic valve is trileaflet and calcified. The non coronary cusp is restricted resulting in moderate aortic stenosis. The gastric views showed a peak velocity of 2.5m/s and did not reveal any significant flow reversal in the aorta to suggest significant aortic regurgitation. Transthoracic echocardiogram performed at the end of the procedure showed a pressure half time that is more consistent with moderate aortic regurgitation and velocities and gradients status post suggestive of moderate aortic stenosis. Pulmonic Valve Pulmonic valve is grossly normal. Mitral Valve The mitral valve is sclerotic. There is trace mitral regurgitation. Tricuspid Valve Tricuspid valve is grossly normal. Pericardium/Pleural There is no pericardial effusion. Aorta There is no significant plaque in visualized portions of the aorta. Aortic Valve Name Value Normal AV Doppler AV Peak Velocity 379 cm/s AV Peak Gradient 57 mmHg AV Mean Gradient 31 mmHg AV VTI 68 cm Report Signatures
[2024-10-28 12:30] VITALS: BP 148/79; PULSE 56; RESP 14; TEMP 36.9; O2SAT 96; BMI 28.5
--- NOTE | 2024-10-28 12:36 | WPDHPUPDATE1 ---
History and Physical Update Update Date/Time: 10/28/24 12:36 History and Physical has been reviewed, including an updated exam of the patient. There are NO changes in the patient's condition. Risks, benefits, and alternatives have been discussed and questions answered. Patient agrees to proceed with procedure.
--- NOTE | 2024-10-28 12:39 | WPDANESEPPF ---
Anes - Initial Pre Proc Eval Procedure: Operation Date: 10/28/24 12:30 Proposed Procedures p Trans Esophageal Echo - Danny Salas MD Date/Time: 10/28/24 12:39 Surgeon: Danny Salas MD Pre Op Diagnosis: aortic stenosis Patient Data Age: 53 Gender: M Height: 1.83 m Weight: 95.3 kg Last Vital Signs Temp 98.4 F 10/28/24 12:30 Pulse 56 L 10/28/24 12:30 Resp 14 10/28/24 12:30 BP 148/79 H 10/28/24 12:30 Pulse Ox 96 10/28/24 12:30 O2 Del Method Room Air 10/28/24 12:30 Allergies Allergy/AdvReac Type Severity Reaction Status Date / Time ampicillin Allergy Unknown Unknown Verified 10/28/24 12:33 Penicillins Allergy Unknown Unknown Verified 10/28/24 12:33 Home Medications ?Medication ?Instructions ?Recorded ?Confirmed ?Type losartan 25 mg tablet 50 mg (2 x 25 mg) PO DAILY #30 tabs 07/01/23 10/27/24 Rx aspirin 81 mg tablet,delayed 81 mg PO DAILY 07/22/23 10/27/24 History release rosuvastatin 10 mg tablet 10 mg PO HS 07/22/23 10/27/24 History levetiracetam 500 mg 2,000 mg (4 x 500 mg) PO DAILY 08/05/24 10/28/24 Rx tablet,extended release 24 hr #360 tabs (Keppra XR) nitroglycerin 0.4 mg sublingual 0.4 mg sublingual Q5M PRN chest 08/05/24 10/27/24 History tablet pain Patient hx anesthesia problems: none Family hx anesthesia problems: none Results Review: All pre-operative results and documents have been reviewed as part of the pre-operative evaluation. 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 Aortic insufficiency with aortic stenosis Hypertension Systolic murmur Tobacco use Diverticulitis Family History Family History Father Family history of thyroid disease Mother Family history of diabetes mellitus in first degree relative Social History Social History Smoking packs per day: 2 Smoking cigarettes per day: 40.0 Years smoked: 20 Smoking pack-years: 40.00 Smoking status: Former smoker Tobacco type: cigarettes Smoking end date: 05/05/23 Alcohol intake: former Drinks per week: 2 Alcohol use details: Drinks shots on Tuesdays while playing darts Substance use: never Substance use type: does not use Other substance usage details: rec use Do You Feel Safe in your Home?: Yes Lack of Transportation: No Lack of Food: Never True Current Housing: I Have Housing Concerned About Future Housing: No Difficulty Paying Gas/Electric Bills: No Difficulty Paying for Meds: No Currently Unemployed: No Education: Bachelor's Degree Difficulty w/ Childcare or Family Care: No Living arrangements: with family Additional living arrangements comments: Gender identity (if verbalized by the patient): Male Spiritual care concerns: No Anes - Eval Final PreProcedure Day of Procedure 10/28/24 12:39 Patient weight: overweight Lungs: normal air movement Airway: Mallampati scale class II Neurological: alert and oriented Last oral intake: >/= 8 hours ASA classification: III Emergent: no Anesthetic plan: proceed Anesthesia type and monitoring: general GIVS and standard monitoring Results Review: All pre-operative results and documents have been reviewed as part of the pre-operative evaluation. HTN, and AI both w nml LVEF. Pt sig ex smoker, quit 2023, had been 2 ppd for 20 years. Prev seizure disorder, none since 2023. Informed Consent: The patient's anesthetic plan and its attendant risks and benefits were discussed with the patient/family/POA. Questions were solicited and answers provided to the satisfaction of the patient/family/POA.
[2024-10-28 13:20] VITALS: BP 120/78; PULSE 70; RESP 13; O2SAT 95
[2024-10-28 13:35] VITALS: BP 121/78; PULSE 68; RESP 15; O2SAT 97
[2024-10-28 13:50] VITALS: BP 121/74; PULSE 65; RESP 17; O2SAT 97
[2024-10-28 14:05] VITALS: BP 119/80; PULSE 71; RESP 15; O2SAT 98
== END 2024-10-28 14:35 | disposition home or self-care (01) ==
LOC: ANHCARD 11:08
PROVIDERS: PCP Internal Medicine; Visit Provider Internal Medicine
PROC: (CPT 93312; principal; 2024-10-28 12:30)
DX: G40.909 Epilepsy, unspecified, not intractable, without status epilepticus (principal); I35.0 Nonrheumatic aortic (valve) stenosis; I35.1 Nonrheumatic aortic (valve) insufficiency
CPT/HCPCS: 93312; 93320; 93325; J2003; J2250; J2704; J3010; J7040

== ENCOUNTER 2025-01-14 02:25 | Day surgery (SDC) | payer OTHER, SELFPAY ==
--- OUTSIDE RECORDS SUMMARY | 2008-07-20 06:15 | XMS_ITS | Continuity of Care Document ---
Author Organization [facility] Address [address] [facility] [address] [place] [address] Phone Care Team Providers Care Slabbing Machine Operator Name Role Phone Bubba Nagel Unavailable Unavailable Procedures Procedure Date Office/outpatient Visit, Est Eye Exam, New Patient Advance Directives Directive Yes / No Effective Date File Name No Information Encounters Encounter Description Practice Location Reason(s) For Visit Diagnoses Date Provider Providers Copied on Encounter Office/outpat ient Visit, Est [facility], [address], [place], [place], [address], [place] tel:[phone] [facility] No Information Jul-1 8-200 9 Shona Mac. [address] [facility] [address] [address], [place], [place], [facility], [place]. tel:[phone] [facility], [address] [place] [address] [address], [place], [place], [address], [place] tel:[phone] [facility] No Information Jul-0 9-200 9 Doisy Edward. [address], [place], [address], [place]. tel:[phone] Family History Family Member Type Diagnosis Age At Onset No Information Payers Payer name Insurance type Covered green party ID Authoriza tiole(s) [facility] [id number] Social History Type Description Quantity Date Captured [...]
[2024-12-31 13:12] VITALS: BMI 28.4
--- OUTSIDE RECORDS SUMMARY | 2025-01-14 02:28 | XMS_ITS | Clinical Summary ---
Author Organization [facility] [employer] Address [address] [place] [address] Care Team Providers Care Developer Programmer Analyst Name Role Phone Tunde Mcdaniel MD Primary Care Provider [phone] Source Comments [facility] [employer]non-owned Affiliates and Associated Physician Practices is amultiple site organization consisting of ambulatory clinics and hospital sitesin [place], [place], [place] and [place]. This disclosure is being madepursuant to the Care Everywhere program and may not contain all information available regarding this patient. Last updated 18.[facility] [employer] 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 Visit [facility] - Hematology/Oncology [address] [place] [address] Erica Ponce, [address] [place] [address] Health Maintenance Due Date Last Done Comments [...] 08/22/2020, 08/01/2020 DEPRESSION SCREENING 05/05/2024 INFLUENZA VACCINE (#1) 2025 02/05/2020 COLOGUARD (AGES 45-75) - COL [...] Procedure Name Priority Date/Time Associated Diagnosis Comments ENDOSCOPY, COLON, DIAGNOSTIC Routine 08/13/2024 8:07 AM CDT from Last 3 Months or Most Recently Relevant to Health Maintenance Results * Endoscopy, Colon, Diagnostic (08/13/2024 8:07 AM [...] bowel preparation was evaluated using the BBPS ([place] Bowel Preparation Scale) with scores of: Right [...] clips were successfully placed (MR conditional). Clip hot stick man: [employer]. There was no bleeding at the end [...] as tolerated. - Hold any anticoagulant medications (blood thinners) for 2 days. Resume rest of home [...] entire procedure. Procedure Code(s): --- Professional --- 46869, Colonoscopy, flexible; with endoscopic mucosal resection 45971, 59, Colonoscopy, flexible; with removal of tumor(s), polyp(s), or other lesion(s) by snare technique Diagnosis Code(s): --- Professional --- D12.2, Benign neoplasm of ascending colon D12.3, Benign neoplasm of transverse colon (hepatic flexure or splenic flexure) D12.4, Benign neoplasm of descending colon K63.5, Polyp of colon K57.30, Diverticulosis of large intestine without perforation or abscess without bleeding CPT copyright 2021 [employer]. All rights reserved. The codes documented in this report are preliminary and upon chief unit forester review may be revised to meet current compliance requirements. Fortino Damico MD 08/13/2024 8:47:37 AM Note Initiated On: 08/13/2024 8:07 AM Number of Addenda: 0 [facility] [address] [facility], [place] [address] [facility] 08/13/2024 8:07 AM CDT us Fortino Damico MD GI PROCEDURE ORDERAB LES Edited Result - Final [facility] from Last 3 Months or Most Recently Relevant to Health Maintenance Insurance [employer] SELF PAY NO INSURANCE Member Subscriber Plan / Payer (Ef fective for All Dates) Name:Bernard Tan Member ID:Not on file Relation to Subscriber:Not on file Name:BERNARD TAN Subscriber ID:Not on file (Home) Address: [facility] [place] [address] Payer ID:Not on file Group ID:Not on file Type:Self Pay Address: [place], [place] Care Teams Developer Programmer Analyst Relationship Specialty Start Date End Date Tunde Mcdaniel MD [address] [place] [address] PCP - General Internal Medicine 08/13/24
--- NOTE | 2025-01-14 09:58 | WPDANESEPPF ---
Anes - Initial Pre Proc Eval Procedure: Operation Date: 01/14/25 11:00 Proposed Procedures p Diagnostic Colonoscopy - Molina Fabian MD Date/Time: 01/14/25 09:58 Surgeon: Molina Fabian MD Pre Op Diagnosis: Personal history of colon polyps, unspecified Patient Data Age: 54 Gender: M Height: 1.83 m Weight: 95 kg Allergies Allergy/AdvReac Type Severity Reaction Status Date / Time ampicillin Allergy Unknown Unknown Verified 01/14/25 09:59 Penicillins Allergy Unknown Unknown Verified 01/14/25 09:59 Home Medications ?Medication ?Instructions ?Recorded ?Confirmed ?Type losartan 25 mg tablet 50 mg (2 x 25 mg) PO DAILY #30 tabs 07/01/23 01/14/25 Rx aspirin 81 mg tablet,delayed 81 mg PO DAILY 07/22/23 01/14/25 History release rosuvastatin 10 mg tablet 10 mg PO HS 07/22/23 01/14/25 History levetiracetam 500 mg 2,000 mg (4 x 500 mg) PO DAILY 08/05/24 01/14/25 Rx tablet,extended release 24 hr #360 tabs (Keppra XR) nitroglycerin 0.4 mg sublingual 0.4 mg sublingual Q5M PRN chest 08/05/24 12/31/24 History tablet pain Patient hx anesthesia problems: none Family hx anesthesia problems: none Results Review: All pre-operative results and documents have been reviewed as part of the pre-operative evaluation. 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 Aortic insufficiency with aortic stenosis Hypertension Systolic murmur Tobacco use Diverticulitis Family History Family History Father Family history of thyroid disease Mother Family history of diabetes mellitus in first degree relative Social History Social History Smoking packs per day: 2 Smoking cigarettes per day: 40.0 Years smoked: 20 Smoking pack-years: 40.00 Smoking status: Former smoker Tobacco type: cigarettes Smoking end date: 05/05/23 Alcohol intake: former Drinks per week: 2 Alcohol use details: Drinks shots on Tuesdays while playing darts Substance use: current Substance use type: marijuana Other substance usage details: rec use Last use: today Do You Feel Safe in your Home?: Yes Lack of Transportation: No Lack of Food: Never True Current Housing: I Have Housing Concerned About Future Housing: No Difficulty Paying Gas/Electric Bills: No Difficulty Paying for Meds: No Currently Unemployed: No Education: Bachelor's Degree Difficulty w/ Childcare or Family Care: No Living arrangements: with family Additional living arrangements comments: Gender identity (if verbalized by the patient): Male Spiritual care concerns: No Anes - Eval Final PreProcedure Day of Procedure 01/14/25 09:58 Patient weight: overweight Heart: regular rate and rhythm Lungs: clear to auscultation Airway: Mallampati scale class II Neurological: alert and oriented Last oral intake: >/= 8 hours ASA classification: III Emergent: no Anesthetic plan: proceed Anesthesia type and monitoring: general GIVS and standard monitoring Results Review: All pre-operative results and documents have been reviewed as part of the pre-operative evaluation. Informed Consent: The patient's anesthetic plan and its attendant risks and benefits were discussed with the patient/family/POA. Questions were solicited and answers provided to the satisfaction of the patient/family/POA.
[2025-01-14 10:01] VITALS: BP 151/81; PULSE 61; RESP 16; TEMP 36.5; O2SAT 97
[2025-01-14] MEDS: LACTATED RINGERS 1,000 ML 150 ML IV CONT (10:11)
--- NOTE | 2025-01-14 10:58 | PM.IMHP ---
H&P: HPI History of Present Illness Date/Time: 01/14/25 10:58 Chief Complaint: History of colon polyps Narrative: patient with a history of multiple large polyps resected in July. Subsequently he went to [facility] and had completed resection of a partially removed polyp. He is here for follow-up colonoscopy. 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 Aortic insufficiency with aortic stenosis Hypertension Systolic murmur Tobacco use Diverticulitis Family History Family History Father Family history of thyroid disease Mother Family history of diabetes mellitus in first degree relative Social History Social History Smoking packs per day: 2 Smoking cigarettes per day: 40.0 Years smoked: 20 Smoking pack-years: 40.00 Smoking status: Former smoker Tobacco type: cigarettes Smoking end date: 05/05/23 Alcohol intake: former Drinks per week: 2 Alcohol use details: Drinks shots on Tuesdays while playing darts Substance use: current Substance use type: marijuana Other substance usage details: rec use Last use: today Do You Feel Safe in your Home?: Yes Lack of Transportation: No Lack of Food: Never True Current Housing: I Have Housing Concerned About Future Housing: No Difficulty Paying Gas/Electric Bills: No Difficulty Paying for Meds: No Currently Unemployed: No Education: Bachelor's Degree Difficulty w/ Childcare or Family Care: No Living arrangements: with family Additional living arrangements comments: Gender identity (if verbalized by the patient): Male Spiritual care concerns: No Meds Home Medications and Allergies Home Medications ?Medication ?Instructions ?Recorded ?Confirmed ?Type losartan 25 mg tablet 50 mg (2 x 25 mg) PO DAILY #30 tabs 07/01/23 01/14/25 Rx aspirin 81 mg tablet,delayed 81 mg PO DAILY 07/22/23 01/14/25 History release rosuvastatin 10 mg tablet 10 mg PO HS 07/22/23 01/14/25 History levetiracetam 500 mg 2,000 mg (4 x 500 mg) PO DAILY 08/05/24 01/14/25 Rx tablet,extended release 24 hr #360 tabs (Keppra XR) nitroglycerin 0.4 mg sublingual 0.4 mg sublingual Q5M PRN chest 08/05/24 12/31/24 History tablet pain Allergies Allergy/AdvReac Type Severity Reaction Status Date / Time ampicillin Allergy Unknown Unknown Verified 01/14/25 09:59 Penicillins Allergy Unknown Unknown Verified 01/14/25 09:59 Vital Signs Vital Signs - 24 hr 01/14/25 10:01 Temperature 97.7 F Pulse Rate 61 Respiratory Rate 16 Blood Pressure 151/81 H Pulse Oximetry 97 Oxygen Delivery Room Air Exam Const: General: cooperative and healthy appearing Resp: Effort & Inspection: normal respiratory effort and able to speak in complete sentences Auscultation: clear to auscultation bilaterally Cardio: Rate: regular rate Rhythm: regular rhythm GI: Inspection: normal to inspection GI Palp: No No hepatosplenomegaly present Auscultation: normal bowel sounds Rectal Exam: deferred Skin: General skin exam: normal color Psych: Appearance: grossly normal Mental Status: mental status grossly normal Assessment and Plan Assessment and plan (1) Colon polyp: Code(s): K63.5 - Polyp of colon Status: Acute Assessment and Plan: The patient is deemed a good candidate for the procedure. Consent signed. Will proceed.
--- NOTE | 2025-01-14 11:24 | S_PTH ---
PATIENT: Bernard Loving LOC: [facility] U#:[id number] AGE/SX: 54/M ROOM: RE01/14/[address]: Molina Fabian MD : [id number] BED: DIS: 01/14/2025 SPEC #: [id number] RECD: 01/14/25 13:23 STATUS: WALESKA QUINN #: [id number] IRIS: 01/14/25 11:[address]: Molina Fabian DEPT: [facility] Surgical RECD BY: Idalmis Cruz ENTERED: 01/14/25 13:24 SP TYPE: Surgical OTHR DR: Tunde McdanielMD Tissues: A - Colon Polypectomy B - Colon Polypectomy Procedures: Hematoxylin and Eosin Stain Gross and Microscopic Level 4
[2025-01-14 11:27] VITALS: BP 97/58; PULSE 64; RESP 20; O2SAT 97
[2025-01-14 11:37] VITALS: BP 118/70; PULSE 60; RESP 20; O2SAT 98
[2025-01-14 11:47] VITALS: BP 130/75; PULSE 57; RESP 20; O2SAT 98
== END 2025-01-14 11:57 | disposition home or self-care (01) ==
PROVIDERS: PCP Internal Medicine; Referring Provider Internal Medicine Gastroenterology; Visit Provider Internal Medicine Gastroenterology
PROC: 0DJD8ZZ Inspection of Lower Intestinal Tract, Via Natural or Artificial Opening Endoscopic (ICD-10-PCS; CPT 45378; principal; 2025-01-14 11:00)
DX: Z09 Encounter for follow-up examination after completed treatment for conditions other than malignant neoplasm (principal); D12.3 Benign neoplasm of transverse colon; D12.5 Benign neoplasm of sigmoid colon; K57.30 Diverticulosis of large intestine without perforation or abscess without bleeding; I10 Essential (primary) hypertension; R01.1 Cardiac murmur, unspecified; G47.33 Obstructive sleep apnea (adult) (pediatric); G40.219 Localization-related (focal) (partial) symptomatic epilepsy and epileptic syndromes with complex partial seizures, intractable, without status epilepticus; I35.2 Nonrheumatic aortic (valve) stenosis with insufficiency; Z79.82 Long term (current) use of aspirin; Z87.891 Personal history of nicotine dependence; Z87.19 Personal history of other diseases of the digestive system
CPT/HCPCS: 45385; 88305; J2003; J2704; J7120

== ENCOUNTER 2025-03-24 07:32 | Outpatient (CLI) | payer OTHER, SELFPAY ==
--- OUTSIDE RECORDS SUMMARY | 2008-07-20 05:15 | XMS_ITS | Continuity of Care Document ---
Author Organization [facility] Address [address] [facility] [address] [place] [address] Phone Care Team Providers Care Timber Robber Name Role Phone Bubba Nagel Unavailable Unavailable Procedures Procedure Date Office/outpatient Visit, Est Eye Exam, New Patient Advance Directives Directive Yes / No Effective Date File Name No Information Encounters Encounter Description Practice Location Reason(s) For Visit Diagnoses Date Provider Providers Copied on Encounter Office/outpat ient Visit, Est [facility], [address], [place], [place], [id number], [place] tel:[phone] [facility] No Information Jul-1 8-200 9 Shona Mac. [address] [facility] [address] [address], [place], [place], [facility], [place]. tel:[phone] [facility], [address] [place] [address] [address], [place], [place], [id number], [place] tel:[phone] [facility] No Information Jul-0 9-200 9 Doisy Edward. [address], [place], [address], [place]. tel:[phone] Family History Family Member Type Diagnosis Age At Onset No Information Payers Payer name Insurance type Covered constitution party ID Authoriza tiole(s) [facility] [id number] Social History Type Description Quantity Date Captured Comments Sex Male Smoking Status No Information Chief Complaint And Reason For Visit No Information Reason For Referral Reason For Referral No Information History Of Present Illness Encounter Date Complaint History Of Prese nt Illness No Information Functional Status Date Functional Assessmen t No Information Instructions Date Instruction Additional Infor mation No Information Assessments Type Assessment Date No Information Patient Care Teams Name Effective Dates (start - stop) Status Members No Information
--- OUTSIDE RECORDS SUMMARY | 2008-07-20 05:15 | XMS_ITS | Continuity of Care Document ---
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, [address], [place], [place], [id number], [place] tel:[phone] [facility] No Information Jul-1 8-200 9 Shona Mac. [address] [facility] [address] [address], [place], [place], [facility], [place]. tel:[phone] [facility], [address] [place] [address] [address], [place], [place], [id number], [place] tel:[phone] [facility] No Information Jul-0 9-200 9 Doisy Edward. [address], [place], [address], [place]. tel:[phone] Family History Family Member Type Diagnosis Age At Onset No Information Payers Payer name Insurance type Covered constitution party ID Authoriza tiole(s) [facility] [id number] Social History Type Description Quantity Date Captured [...]
--- OUTSIDE RECORDS SUMMARY | 2008-07-20 05:15 | XMS_ITS | Continuity of Care Document ---
Author Organization [facility] Address [address] [facility] [address] [place] [address] Phone Care Team Providers Care Head Cashier Name Role Phone Bubba Nagel Unavailable Unavailable Procedures Procedure Date Office/outpatient Visit, Est Eye Exam, New Patient Advance Directives Directive Yes / No Effective Date File Name No Information Encounters Encounter Description Practice Location Reason(s) For Visit Diagnoses Date Provider Providers Copied on Encounter Office/outpat ient Visit, Est [facility], [address], [place], [place], [id number], [place] tel:[phone] [facility] No Information Jul-1 8-200 9 Shona Mac. [address] [facility] [address] [address], [place], [place], [facility], [place]. tel:[phone] [facility], [address] [place] [address] [address], [place], [place], [address], [place] tel:[phone] [facility] No Information Jul-0 9-200 9 Doisy Edward. [address], [place], [address], [place]. tel:[phone] Family History Family Member Type Diagnosis Age At Onset No Information Payers Payer name Insurance type Covered alliance party ID Authoriza tiole(s) [facility] [id number] Social History Type Description Quantity Date Captured [...]
--- OUTSIDE RECORDS SUMMARY | 2008-07-20 05:15 | XMS_ITS | Continuity of Care Document ---
Author Organization [facility] Address [address] [facility] [address] [place] [address] Phone Care Team Providers Care Dental Assistant Teacher Name Role Phone Bubba Nagel Unavailable Unavailable Procedures Procedure Date Office/outpatient Visit, Est Eye Exam, New Patient Advance Directives Directive Yes / No Effective Date File Name No Information Encounters Encounter Description Practice Location Reason(s) For Visit Diagnoses Date Provider Providers Copied on Encounter Office/outpat ient Visit, Est [facility], [address], [place], [place], [address], [place] tel:[phone] [facility] No Information Jul-1 8-200 9 Shona Mac. [address] [facility] [address] [address], [place], [place], [facility], [place]. tel:[phone] [facility], [address] [place] [address] [address], [place], [place], [address], [place] tel:[phone] [facility] No Information Jul-0 9-200 9 Doisy Edward. [address], [place], [address], [place]. tel:[phone] Family History Family Member Type Diagnosis Age At Onset No Information Payers Payer name Insurance type Covered constitution party ID Authoriza tiole(s) [facility] [id number] Social History Type Description Quantity Date Captured [...]
--- OUTSIDE RECORDS SUMMARY | 2025-03-24 07:37 | XMS_ITS | Data Portability ---
Author Organization [facility] [employer], Main Office Address [address] [place] [address] Assessment No assessment recorded. Plan of Treatment Reminders Order Date Submit Date Provider Last Modified By Organization Details Last Modified Time Details Appointments None recorded . Lab PSA, serum or plasma 025 03/23/20 25 [facility], [address], [place], [address], 5 15:11:58 lipid panel, serum 025 03/23/20 25 [facility], [address], [place], [address], 5 15:11:58 CMP, serum or plasma 025 03/23/20 25 [facility], [address], [place], [address], 5 15:11:57 CBC w/ auto diff 025 03/23/20 25 [facility], [address], [place], [address], 5 15:11:59 CMP, serum or plasma 025 09/08/19 25 [facility], [address], [place], [address], 5 14:18:36 CMP, serum or plasma 025 09/08/19 25 [facility], [address], [place], [address], 5 11:16:17 lipid panel, serum 025 09/08/19 25 [facility], [address], [address], [place], [address], 5 11:16:17 CBC w/ auto diff 025 09/08/19 25 [facility], [address], [address], [place], [address], 5 14:18:36 PSA, serum or plasma 03/09/20 24 [facility], [address], [place], [address], 4 12:25:38 CBC w/ auto diff 024 03/09/20 24 [place] [employer] [facility], [address], [address], [place], [address], 4 09:59:17 CMP, serum or plasma 024 03/09/20 24 [facility], [address], [address], [place], [address], 4 12:23:38 lipid panel, serum 03/09/20 24 [place] [employer] [facility], [address], [address], [place], [address], 4 12:25:38 T4, free, serum 024 03/09/20 24 [email or web address] [employer] [facility], [address], [address], [place], [address], 4 09:53:34 TSH, serum or plasma 03/09/20 24 [facility], [address], [address], [place], [address], 12:25:38 Referral None recorded . Procedures None recorded . Surgeries None recorded . Imaging None recorded . Medication Orders None recorded . Patient TargetsNo targets recorded. Patient Instructions Encounter Date Encounter Id Patient Instructions Last Modified By Organization Details Last Modified Time 07/25/2023 [id number] Essential hypertension currently clinically stable. 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 Already has a follow-up appointment. Keep Appt: Fri 01:50 PM [place] Portions of the record may have been created with voice recognition software. Occasional wrong-word or s ound-a-like substitutions may have occurred due to the inherent limitations of voice recognition software. Read the chart carefully and recognize, using context, where substitutions have occurred. [email or web address] Not available 07/25/2023 15:17:09 11/04/2023 [id number] Follow-up for essential hypertension, aortic stenosis, hyperlipidemia and seizure disorder all clinically stable. Is followed on a regular basis by Cardiology. He is scheduled to see Neurology within the next month. Will continue on current Rx follow-up in four months. Next Appointment: 4 Months Approximate Date: 03/03/2024 Portions of the record may have been created with voice recognition software. Occasional wrong-word or s ound-a-like substitutions may have occurred due to the inherent limitations of voice recognition software. Read the chart carefully and recognize, using context, where substitutions have occurred. Not available 11/04/2023 15:41:04 03/09/2024 [id number] Follow-up for essential hypertension, hyperlipidemia, aortic stenosis [...] with voice recognition software. Occasional wrong-word or s ound-a-like substitutions may have occurred due to the inherent limitations of voice recognition software. Read the chart carefully and recognize, using context, where substitutions have occurred. [email or web address] Not available 03/09/2024 15:16:03 09/07/2024 [id number] Follow-up essent ial hypertension, hyperlipidemia, aortic stenosis [...] with voice recognition software. Occasional wrong-word or s ound-a-like substitutions may have occurred due to the inherent limitations of voice recognition software. Read the chart carefully and recognize, using context, where substitutions may have occurred. Created: Tunde Mcdaniel M.D. 09.07.2024 02:24 PM [email or web address] Not available 09/07/2024 15:24:51 03/23/2025 [id number] While patient evaluation risk assessment stable. Follow-up for hypertension, hyperlipidemia, moderate aortic stenosis and adenomatous polyps of the colon. All clinically stable. Will check some baseline blood work consisting of CBC, CMP, lipid, thyroid and PSA. Continue on current Rx follow-up in six months Advised on FDA Recommended Immunizations including but not limited to Influenza, COVID,Tetanus,TDAP, Pneumococcal,RSV and Shingles Additional Orders - Directives - Recommendations Recommended Testing 1. PSA 0.5 Immunizations and Vaccines 1. RSV Recommended 2. Shingrix Recommended 3. Influenza Recommended 4. Tetanus or TD Recommended 5. Covid or Booster Recommended Recommended Vaccine and Immunizations Discussed With Patient! Follow Up: 4 Months Approximate Date: 07/21/2025 Portions of record are template driven. When necessary additional context will be provided. Additionally some portions have been created with voice recognition software. Occasional wrong-word or s ound-a-like substitutions may have occurred due to the inherent limitations of voice recognition software. Read the chart carefully and recognize, using context, where substitutions may have occurred. Created: Tunde Mcdaniel M.D. 03.23.2025 02:10 PM [email or web address] Not available 03/23/2025 15:11:01 Reason for Referral None Reported. Results Created [...] is negat zaheer. TEST DESCR IPTIO N: [place] site algor ithmi c devi sis of [...] years or older , who are at [facility] for color ectal cance r (CRC) . Colog uard has been appro orly for use by the [place]. FDA. The perfo rmanc e of Colog uard was estab lishe d in a cross secti onal study of [facility] adult s aged 50-84 . Colog uard perfo rmanc e in patie nts ages 45 to 49 years was estim ated by sub-g roup devi sis of near- age group s. Colon oscop ies perfo rmed for a posit zaheer resul t may find as the most clini yao signi fican t lesio n: color ectal cance r [4.0% ], advan brnady adeno ma (incl uding sessi le thiago nova polyp s great er than or equal to 1cm diame ter) [20%] or non- advan brandy adeno ma [31%] ; or no color ectal neopl gerhard [45%] . These estim ates are deriv ed from a prosp ectiv e cross -sect ional scree colton study of 10,00 0 indiv idual s at [facility] risk for color ectal cance r who [...] at www.c ologu jaison.c om. Not Available [employer] [address], [place], [address], 04/01/2024 07:32:06 06/26/19 24 06/26/2023 XR, chest , 1 view No observ ation record ed. [address], [place], [address], 06/26/2023 08:30:20 06/26/19 24 06/26/2023 CT, brain , w/o contr ast No observ ation record ed. [address], [place], [address], 06/26/2023 10:09:18 06/26/19 24 06/26/2023 XR, lumba r spine No observ ation record ed. [email or web address] [address], [place], [address], 06/30/2023 12:08:33 06/27/19 24 06/27/2023 marni nuous EEG monit oritez , profe dagmaron al compo nent; 12-26 hrs, with VEEG (PROC ) No observ ation record ed. [place] [address], [place], [address], 06/27/2023 14:24:53 06/30/19 24 06/30/2023 CT, angio gram, neck, w/ contr ast No observ ation record ed. [address], [place], [address], 07/01/2023 07:52:08 Result Notes None recorded. Problems Name Problem SNOMED Code Status Onset Date Resolution Date Notes Provider Name and Address Organization Details Recorded Time Lateral epicondylitis 292175033 Active Not Available [facility] 3 15:25:31 Shoulder strain 755575271 Active Not Available [facility] 3 15:25:31 Abscess of scrotum 56885087 Active Not Available [facility] 3 15:25:31 Tenosynovitis of wrist 221895801 Active Not Available [facility] 3 15:25:31 Chest wall pain 083491253 Active 2016 Not Available [facility] 3 15:25:31 Pain of multiple joints 58493101 Active 2016 Not Available [facility] 3 15:25:31 Aortic valve stenosis 48443266 Active 2023 Tunde Mcdaniel MD [address], [place], [address] , [employer] 4 16:48:17 Essential hypertension 24941567 Active 2023 Tunde Mcdaniel MD [address], [address], [place], [address] , [employer] 4 16:48:25 Confusional state 427828187 Active 2023 Tunde Mcdaniel MD [address], [address], [place], [address] , [employer] 4 16:56:11 Seizure disorder 802458251 Active 2023 Tunde Mcdaniel MD [address], [place], [address] , [employer] [facility] [employer] [facility] 4 12:04:01 Hyperlipidemi a 88666266 Active 2023 Rachna Guzman RENNY null, [place] [employer] [facility] [employer] [facility] 4 15:05:45 Furuncle 484166219 Active 2023 Tunde Mcdaniel MD [address], [place], [address] , [employer] [facility] [employer] [facility] 4 10:45:04 Disorder of prostate 92891837 Active 2023 Tunde Mcdaniel MD [address], [address], [place], [address] , [employer] [facility] [employer] [facility] 4 15:15:47 Colorectal cancer detected by DNA-based stool screening 916174900 Active 2023 Rachna Guzman CMA null, [employer] [facility] [employer] [facility] 4 12:28:58 Adenomatous polyp of colon 219685059 Active 2024 Tunde Mcdaniel MD [address], [employer], [place], [address] , [employer] [facility] [employer] [facility] 5 15:19:07 Problem Notes None recorded. Medical Equipment None Reported. Allergies Allergen ID Allergen Name Allergen Category Reaction Reaction Severity Criticality Documentation Date Start Date Code Code System Note Provider Name and Address Organization Details Recorded Time 35411 amoxicill in medicatio n rash mild unabletoasse ss 12/11/2023 723 RxNorm Tunde Mcdaniel MD [address], [place], [address], [employer] [facility] [employer] [facility] 4 10:44:57 61992 ampicilli n medicatio n Not available Not available Not available 03/23/20252023 733 RxNorm unrec ogniz ed react ion (text : Unkno wn, code: [id number]) (from exter nal sourc e) Not Available augustin - External Data Service - prod 5 05:10:41 Medications Name Sig Start Date Stop Date [...] weight Heart rate Body temperature Oxygen saturation Systolic And Diastolic Provider Name and Address Organization Details Last Updated DateTime 4 180.34 cm 27.9 kg/m2 58962.4 7 g 68 /min 97 [degF] 96 % 108/60 mm[Hg] [email or web address] [facility] [employer] [facility] 4 14:44:15 Date Recorded Body height Body mass index (BMI) Body weight Heart rate Body temperature Oxygen saturation Systolic And Diastolic Provider Name and Address Organization Details Last Updated DateTime 5 180.34 cm 28.6 kg/m2 50292.4 4 g 69 /min 97 [degF] 95 % 134/72 mm[Hg] [email or web address] [facility] [employer] [facility] 5 15:12:51 Date Recorded Body height Body mass index (BMI) Body weight Heart rate Body temperature Oxygen saturation Systolic And Diastolic Provider Name and Address Organization Details Last Updated DateTime 4 180.34 cm 27.9 kg/m2 38671.4 7 g 55 /min 97.7 [degF] 97 % 120/70 mm[Hg] [facility] [employer] [facility] [employer] [facility] 4 15:06:40 Date Recorded Body height Body mass index (BMI) Body weight Heart rate Body temperature Oxygen saturation Systolic And Diastolic Provider Name and Address Organization Details Last Updated DateTime 4 180.34 cm 28.2 kg/m2 48804.6 6 g 71 /min 97 [degF] 97 % 130/70 mm[Hg] Kaylie Lee [facility] [employer] [facility] [employer] [facility] 4 15:00:50 Date Recorded Body height Body mass index (BMI) Body weight Heart rate Body temperature Oxygen saturation Systolic And Diastolic Provider Name and Address Organization Details Last Updated DateTime 5 180.34 cm 29 kg/m2 53215.2 1 g 72 /min 97.2 [degF] 98 % 124/62 mm[Hg] Maida [employer] [facility] [employer] [facility] 5 14:52:06 Social History None recorded. Functional Status None recorded. Mental Status None recorded. Family History Nothing Reported. Medical History Condition Response NERVE DISEASE N BLINDNESS N RHEUMATIC FEVER N KIDNEY STONES N BLADDER PROBLEMS N MRSA N OTHER # 1 N POLIO N LUNG DISEASE/DISORDER N HISTORY OF DRUG ABUSE N COPD N RADIATION / CHEMOTHERAPY N Other # 2 N BLOOD DISEASES [...] have Advance directive? N ADDICTION CONCERNS N ENDOMETRIOSIS N Impotence N USE OF BLOOD THINNERS N SKIN PROBLEMS N GASTROINTESTINAL DISORDER N PERIPHERAL VASCULAR DISEASE N MUSCLE,JOINT OR BONE PROBLEMS N GASTROINTESTINAL BLEEDING N BLOOD CLOTS N ASTHMA N Abdominal Pain N CATARACTS N ARTERIAL INSUFFICIENCY N ERECTILE DYSFUNCTION N VARICOSITIES N GI PROBLEMS N Low [...] ESRD N HIGH CHOLESTEROL / HYPERLIPIDEMIA N EYE PROBLEMS N HYPERTHYROIDISM N PVD N EDEMA N CHRONIC PAIN SYNDROME N HYPOTHYROIDISM N CAROTID BLOCKAGE N CONSTIPATION N BACK / NECK PROBLEMS N HAVE YOU BEEN HOSPITALIZED OR SEEN IN [facility] IN THE PAST YEAR ? [...] Brain Problems N HERPES N DEMENTIA N HEADACHES/MIGRAINES N SEIZURES/EPILEPSY N VASCULAR DISEASE N PACEMAKER N DIZZINESS N HEART DISEASE/HEART PROBLEMS N KIDNEY DISEASE N MULTIPLE SCLEROSIS N NEUROPSYCHOLOGICAL N CARDIAC ARRHYTHMIA N CANCER: SPECIFY N ATRIAL FIBRILLATION N Gall Stones N PULMONARY EMBOLISM N AUTOIMMUNE DISEASE N Immunizations Vaccine Type Date Status Note Provider Nam e and Address Organization Details Recorded Time Influenza, MDCK, quadrivalent, PF 02/05/2020 completed Not Available [facility] 5 14:25:52 COVID-19, mRNA, LNP-S, PF, 30 mcg/0.3 mL dose 08/01/2020 completed Not Available [facility] 5 14:25:52 COVID-19, mRNA, LNP-S, PF, 30 mcg/0.3 mL dose 08/22/2020 completed Not Available [facility] 14:25:52 Past Encounters Encounter ID Performer Location Encounter Start Date Encounter Closed Date Diagnosis/Indication Diagnosis SNOMED-CT Code Diagnosis ICD10 Code Diagnosis IMO Codes Diagnosis Note [id number] Tunde Mcdaniel MD [facility] [place] Med [facility] [address] [address] 05/14/2023 16:36:08 05/14/2023 17:15:36 Adult health examination 047717825 Z00.00 Depression screening 171 025828 Z13.31 Confusional state 137023 003 F44.89 Aortic valve stenosis 60 883119 I35.0 Essential hypertension 50126333 I10 [id number] Tunde Mcdaniel MD [facility] [place] Med [facility] [address] [address] 06/25/2023 14:27:04 06/25/2023 14:59:25 Essential hypertension 19516697 I10 Aortic valve stenosis 60 751486 I35.0 [id number] Tunde Mcdaniel MD [facility] [place] [place] Internal Med [facility] [address] [address] 07/07/2023 11:52:03 07/08/2023 09:01:26 Seizure disorder 222268274 G40.514 [id number] Tunde Mcdaniel MD [facility] [place] Internal Med [place] rodgers [address] [facility] [place] [address] 07/25/2023 14:25:39 07/25/2023 15:24:44 Essential hypertension 20899970 I10 [id number] Tunde Mcdaniel MD [facility] [place] Internal Med Kim llshakir [address] [facility] [place] [address] 11/04/2023 15:00:03 11/04/2023 15:45:19 Essential hypertension 24169384 I10 Aortic valve stenosis 60 499255 I35.0 Hyperlipidemia 20661295 E78.5 Seizure disorder 6663882 02 G40.739 [id number] Tunde Mcdaniel MD [facility] Internal Med [place] [address] [facility], [place] [address] 03/09/2024 14:33:41 03/09/2024 15:21:05 Essential hypertension 02714390 I10 Hyperlipidemia 95883948 E78.5 Aortic valve stenosis 60 503234 I35.0 Seizure disorder 9866864 02 G40.909 Disorder of prostate 302 52668 N42.9 [id number] Tunde Mcdaniel MD [facility] Internal Med [facility] [address] [address] 09/07/2024 15:08:49 09/07/2024 15:27:15 Essential hypertension 38088962 I10 Hyperlipidemia 43151967 E78.5 Aortic valve stenosis 60 303225 I35.0 Adenomatou s polyp of colon 571061429 D12.3 92526188 [id number] Tunde Mcdaniel MD [facility] Internal Med [facility] [address] [address] 03/23/2025 14:24:54 03/23/2025 15:14:01 General examination of patient 113078055 Z00.00 [id number] Essential hypertension 59499853 I10 Hyperlipidemia 04761617 E78.5 Aortic valve stenosis 60 059173 I35.0 Adenomatou s polyp of colon 779889219 D12.3 29744013 Disorder of prostate 302 20983 N42.9 Health Concerns Section Related Observation LastModified by Organization Detai ls LastModified Time None Recorded Concern Status LastModified by Organization Details LastModified Time None Recorded Advance Directives Directive None Recorded Payers Insurance Date Sequence Insurance Name Policy Number Policy Carrillo Covered Member ID Carrillo Member ID Guarantor Name 03/23/2025 1 [employer] (POS) [id number] Hodan Loving [id number] Bernard Loving 03/23/2025 1 AET - [facility] - OPEN CHOICE - NAP (PPO) [id number] Hodan Loving [id number] Bernard Loving Notes Date Note Type [...] Systemic Symptoms:none Medication Reconciliation: from medication list. [id number]: Echocardiogram estimated ejection fraction greater than 70%. [...] Potassium 50 MG TABLET Once Daily Surgical Zlozcbc1946-35 Lap Sigmoidectomy Preventative Anbdmvh4708/28/2019 ALBUMIN 4.4 G/DL N04/ PSA 0.3 NG/ML N105/16/2011 COLONOSCOPY 03/16/2022 Social HistoryMarriedSmokes two packs daily for over 15 yearsDrinks sociallyGraphics designerFamily HistoryMother 78 HTN, Carcinoma of BreastFather 79 high cholesterol and Thyroid noduleOne brother living and in good healthTwo sisters living and in good health Tunde Mcdaniel MD [address] [facility], [facility] [address], [place], [address], [facility] [employer] 07/25/2023 15:17:36 4 text/html Patient Name: Bernard PerryissDate Of Service: Friday ( 11.04.2023 ): 1970 [...] Systemic Symptoms:none Medication Reconciliation: from medication list. [id number]: Echocardiogram estimated ejection fraction greater than 70%. [...] DailyRosuvastatin 10 MG TABLET One Daily Surgical Xrxlkxz7438-43 Lap Sigmoidectomy Preventative Kwdiijg0108/28/2019 ALBUMIN 4.4 G/DL N008/28/2019 PSA 0.3 NG/ML N105/16/2011 COLONOSCOPY 03/16/2022 Social HistoryMarriedSmokes two packs daily for over 15 yearsDrinks sociallyGraphics designerFamily HistoryMother 78 HTN, Carcinoma of BreastFather 79 high cholesterol and Thyroid noduleOne brother living and in good healthTwo sisters living and in good health Tunde Mcdaniel MD [address] [facility] [address], [place], [address], [place] - [facility] [employer] 11/04/2023 15:41:15 4 text/html Patient Name: Bernard LovingNickte Of Service: Friday ( 03.09.2024 ): 1970 [...] Systemic Symptoms:none Medication Reconciliation: from medication list. [id number]: Echocardiogram estimated ejection fraction greater than 70%. [...] DailyRosuvastatin 10 MG TABLET One Daily Surgical Wujtajd0411-55 Lap Sigmoidectomy Preventative Testing( ) 08/28/2019 Albumin 4.4 G/DL N(X) 08/28/2019 PSA 0.3 NG/ML N 08/27/2020(X) 03/16/2012 Colonoscopy 03/16/2022 Social HistoryMarriedSmokes two packs daily for over 15 yearsDrinks sociallyGraphics designerFamily HistoryMother 78 HTN, Carcinoma of BreastFather 79 high cholesterol and Thyroid noduleOne brother living and in good healthTwo sisters living and in good health Tunde Mcdaniel MD [address] [facility], [facility] [address], [place], [address], [facility] [employer] 03/09/2024 15:16:33 5 text/html Patient Name: Bernard LovingDate Of Service: Friday ( 09.07.2024 ): 1970 Age: 53 Chief Complaint: Addressed in HPI Problems or conditions discussed in the HPI were the only ones reviewed during the encounter.Only social and family history addressed in the HPI were reviewed during this encounter. Attendant(s): NoneConstitutional and Systemic Symptoms:none Medication Reconciliation: from medication list. [id number]: Echocardiogram estimated ejection fraction greater than 70%. [...] DailyRosuvastatin 10 MG TABLET One Daily Surgical Uatufjh6257-59 Lap Sigmoidectomy Preventative Testing( ) 07/28/2024 Colonoscopy ( 6 Months ) 01/28/2025( ) 03/18/2024 PSA 0.5 03/18/2025( ) 08/28/2019 Albumin 4.4 G/DL N Social HistoryMarriedSmokes two packs daily for over 15 yearsDrinks sociallyGraphics designerFamily HistoryMother 81 HTN, Carcinoma of BreastFather 82 high cholesterol and Thyroid noduleOne brother living and in good healthTwo sisters living and in good health Tunde Mcdaniel MD [address] [facility] [address], [facility] [address], [place], [address], [place] [facility] [employer] [facility] 09/07/2024 15:25:07 5 text/html Patient Name: Bernard LovingDate Of Service: Friday ( 03.23.2025 ): 1970 Age: 54 There has been approximately a 6 lb weight gain since 03/09/2024. This represents approximately a 3.0% change in weight. Weight change attributable to lifestyle changes. Vital Signs:Blood Pressure: Sitting Rt. Arm 124/62Pulse: Sitting 72 /min and RegularRespiratory Rate: 16Height 71 in or 1.8 mWeight 208 lb or 94.3 kgBMI 29.0Temperature: 97.2 F or 36.2 CPulse Oximetry: 98 % at rest on no oxygen Chief Complaint: Addressed in HPI Problems or conditions discussed in the HPI were the only ones reviewed during the encounter.Only social and family history addressed in the HPI were reviewed during this encounter. Attendants(s) + NoneConstitutional and Systemic Symptoms:none Medication Reconciliation: from medication list. [id number]: Echocardiogram estimated ejection fraction greater than 70%. [...] Stage: Stage I Interval Neurological Complaints no headaches. No shortness of breath, orthopnea or cardiovascular symptoms. No other symptoms related to end organ damage. Pressure has been under fair control. Currently normal. No other end organ [...] does not need a repeat echocardiogram. #4. Colon polyps: Hx of colon polyps. No interval complaints of any bleeding or change in bowel habits. Last colonoscopy was one year ago. Wellness Evaluation PHQ-2 Score Last Two Weeks Last Two Weeks: 0: Not at all 1: Several Days 2: More than half 3: Almost Every day #1. Little interest or pleasure in doing things: Not At All :Score 0#2. Feeling down, depressed, or hopeless: Not At All :Score 0Minimal or no Depression 0Function Status Staging: No demonstrable functional decline Basic ADLS Ambulation: NormalGrooming: General Personal Hygiene NormalToiletry: Self SufficientDressing: Dresses Without AssistanceEating: Self Sufficient Instrumental ADLS Managing Finances YesManaging Health YesShopping YesPreparing Meals YesUsing Technology YesHouse Work YesTaking Care of Pets YesTaking Care Children YesTransportation Yes Additional Topics Advanced Directives: DeclinedLiving Will: DeclinedCode Status: Full Code Additional Comments Topics listed or those only pertinent to the patient or care givers. Social and Physical Activities Drinking History: One Drink or Less per weekExercise 20 Minutes per Week: Yes, some of timeDifficulty Driving Car: NoOther Problems:NoneSmoking History: Does not smokeCannabis History: Does Not UseVaping History: Does Not Vape Wellness Evaluation Complete Active Medication ListLevetiracetam 500 MG TABLET, EXTENDED RELEASE 4 Tabs DailyLosartan Potassium 50 MG TABLET Once DailyAspirin 81 MG CAPSULE One DailyRosuvastatin 10 MG TABLET One Daily Adverse Drug Reactions ReviewedNo Known Adverse Drug Reactions! (X) Vaccinations and/or Immunizations Due(X) RSV Recommended(X) Shingrix Recommended(X) Influenza Recommended(X) Tetanus or TD Recommended(X) Covid or Booster RecommendedImmunizations and Vaccinations Discussed and Implemented if feasible In the Office. Else referred to pharmacies. Surgical [id number] Lap Sigmoidectomy Preventative Testing: (X) Due (?) Optional( ) 01/14/2025 Colonoscopy ( 3 Years ) 01/15/2028(X) 03/18/2024 PSA 0.5 03/18/2025( ) 08/28/2019 Albumin 4.4 G/DL NPreventative Testing Discussed with Patient and Any Attendants Social HistoryMarriedSmokes two packs daily for over 15 yearsDrinks sociallyGraphics designerFamily HistoryMother 81 HTN, Carcinoma of BreastFather 82 high cholesterol and Thyroid noduleOne brother living and in good healthTwo sisters living and in good health (X) Vaccinations and/or Immunizations Due(X) RSV Recommended(X) Shingrix Recommended(X) Influenza Recommended(X) Tetanus or TD Recommended(X) Covid or Booster RecommendedImmunizations and Vaccinations Discussed and Implemented if feasible In the Office. Else referred to pharmacies. Surgical [id number] Lap Sigmoidectomy Preventative Testing: (X) Due (?) Optional( ) 01/14/2025 Colonoscopy ( 3 Years ) 01/15/2028(X) 03/18/2024 PSA 0.5 03/18/2025( ) 08/28/2019 Albumin 4.4 G/DL NPreventative Testing Discussed with Patient and Any Attendants Tunde Mcdaniel MD [address] [facility] [address] [facility] [address] [place], [address], [facility] 03/23/2025 15:11:23
--- OUTSIDE RECORDS SUMMARY | 2025-03-24 07:38 | XMS_ITS | Clinical Summary ---
Author Organization [facility] [address] Address [address] [place] [address] Care Team Providers Care Hollow Handle Knife Assembler Name Role Phone Tunde Mcdaniel MD Primary Care Provider Allergies Active Allergy Reactions Criticality Noted Date Comments Ampicillin Unknown 06/04/2023 Medications aspirin 81 mg enteric coated tabletIndicatio ns:Coronary artery disease involving [place] coronary artery of [place] heart without angina pectoris Take 1 tablet [...] 10 mg tabletIndicatio ns:Coronary artery disease involving [place] coronary artery of [place] heart without angina pectoris Take 1 tablet (10 mg total) by mouth daily 90 tablet 3 09/23/2023 Active levETIRAcetam XR (KEPPRA XR) 500 mg 24 hr tablet Take 4 tablets (2,000 mg total) by mouth daily Active losartan (COZAAR) 50 mg tablet Take 1 tablet (50 mg total) by mouth daily Active Active Problems Problem Noted Date Diagnosed Date Lightheadedness 10/15/2024 Palpitations 10/15/2024 Left carotid bruit 04/08/2024 Coronary artery disease invo lving cold [place] coronary artery of [place] heart without angina pectoris 07/11/2023 Tobacco abuse 07/11/2023 FRANKIE (obstructive sleep apnea) 07/11/2023 Abnormal cardiovascular stress test 07/11/2023 Hyperlipidemia LDL goal <70 07/11/2023 Elevated troponin 07/11/2023 Nonrheumatic aortic valve insufficiency 06/04/19 24 Nonrheumatic aortic valve stenosis 06/04/2023 Lipid screening 06/04/2023 Essential hypertension 06/04/2023 Encounters Date Type Department Care Team Description 01/11/2025 Telephone [facility] Cardiology [address] [place] [id number] Ricardo Landeros MD from Last 3 Months Surgical History Surgery [...] on file 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 Gender Identity Not on file Sexual Orientation Not on file Last Filed Vital Signs Vital Sign Reading Time Taken Comments Blood Pressure 158/92 10/15/2024 8:53 AM CDT Pulse 62 10/15/2024 8:53 AM CDT Temperature - - Respiratory Rate - - Oxygen Saturation 97% 10/15/2024 8:53 AM CDT Inhaled Oxygen Concentration - - Weight 94.8 kg (209 lb) 10/15/2024 8:53 AM CDT Height 182.9 cm (6') 10/15/2024 8:53 AM CDT Body Mass Index 28.35 10/15/2024 8:53 AM CDT Plan of Treatment Health Maintenance Due Date Last Done Comments Colon Cancer Screening-Colonoscopy 1970 Depression Screening 1969 Hepatitis C Screening 1969 Prostate Cancer Screening-PSA 1969 DTaP/Tdap/Td Vaccine (1 - Tdap) 1980 Hepatitis B Screening 12/03/1987 Regular Well Visit/Exam 18-64 12/03/1987 Zoster Vaccine (1 of 2) 12/03/2019 Covid-19 Vaccine (3 - 2024-2 6 season) 2025 08/22/2020, 08/01/2020 Influenza Vaccine (#1) 2025 02/05/2020 Pneumococcal vaccine <65 Aged Out No longer eligible based on patient's age to complete this topic Insurance TestObject HMO/POS [employer] HMO/POS Care Teams Hollow Handle Knife Assembler Relationship Specialty Start Date End Date Tunde Mcdaniel MD [address] [facility] [address] [place], [place] [id number] PCP - General Internal Medicine 05/07/23
--- OUTSIDE RECORDS SUMMARY | 2025-03-24 07:38 | XMS_ITS | Clinical Summary ---
Author Organization [facility] Address [address] [facility] [place] [address] Care Team Providers Care Watch Repairer Apprentice Name Role Phone Tunde Mcdaniel MD Primary Care Provider [phone] Source Comments [facility],non-owned Affiliates and Associated Physician Practices is amultiple site organization consisting of ambulatory clinics and hospital sitesin [place], [place], [place] and [place]. This disclosure is being madepursuant to the Care Everywhere program and may not contain all information available regarding this patient. 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 Clip brick chimney builder: Outfittery. There was no bleeding at the end [...] entire procedure. Procedure Code(s): --- Professional --- 85581, Colonoscopy, flexible; with endoscopic mucosal resection 08129, 59, Colonoscopy, flexible; with removal of tumor(s), polyp(s), or other lesion(s) by snare technique Diagnosis Code(s): --- Professional --- D12.2, Benign neoplasm of ascending colon D12.3, Benign neoplasm of transverse colon (hepatic flexure or splenic flexure) D12.4, Benign neoplasm of descending colon K63.5, Polyp of colon K57.30, Diverticulosis of large intestine without perforation or abscess without bleeding CPT copyright 2021 [employer]. All rights reserved. The codes documented in this report are preliminary and upon candy spreader helper review may be revised to meet current compliance requirements. Fortino Damico MD 08/13/2024 8:47:37 AM Note Initiated On: 08/13/2024 8:07 AM Number of Addenda: 0 [facility] [address] [place] [address] [facility] 08/13/2024 8:07 AM CDT us Fortino Damico MD GI PROCEDURE ORDERAB LES Edited Result - Final [facility] from Last 3 Months or Most Recently Relevant to Health Maintenance Insurance AET[employer] SELF PAY NO INSURANCE Member Subscriber Plan / Payer (Ef fective for All Dates) Name:Bernard Tan Member ID:Not on file Relation to Subscriber:Not on file Name:BERNARD TAN Subscriber ID:Not on file (Home) Address: [facility] [place] [address] Payer ID:Not on file Group ID:Not on file Type:Self Pay Address: [place], [place] Care Teams Watch Repairer Apprentice Relationship Specialty Start Date End Date Tunde Mcdaniel MD [facility] [address] [address] [place] [address] PCP - General Internal Medicine 08/13/24
--- OUTSIDE RECORDS SUMMARY | 2025-03-24 07:38 | XMS_ITS | Continuity of Care Document ---
Author Organization [place] - [facility], [facility] Internal Med [facility] Address [address] [address] Assessment No assessment recorded. Plan of Treatment Reminders Order Date Submit Date Provider Last Modified By Organization Details Last Modified Time Details Appointments None recorded . Lab PSA, serum or plasma 025 03/23/20 [facility], [facility] Deborah Connolly, [address], [place], [address], 5 15:11:58 lipid panel, serum 025 03/23/20 25 [facility], [place], [address], 5 15:11:58 CMP, serum or plasma 025 03/23/20 25 [facility], [facility] Deborah Connolly, [address], [place], [address], 5 15:11:57 CBC w/ auto diff 025 03/23/20 25 [facility] [address], [address], [place], [address], 5 15:11:59 Referral None recorded . Procedures None recorded . Surgeries None recorded . Imaging None recorded . Medication Orders None recorded . Patient TargetsNo targets recorded. Patient Instructions Encounter Date Encounter Id Patient Instructions Last Modified By Organization Details Last Modified Time 03/23/2025 [id number] While patient evaluation risk assessment stable. Follow-up [...] Created: Tunde Mcdaniel M.D. 03.23.2025 02:10 PM [email or web address] Not available 03/23/2025 15:11:01 Reason for Referral None Reported. Problems Name Problem SNOMED Code Status Onset Date Resolution Date Notes Provider Name and Address Organization Details Recorded Time Lateral epicondylitis 631927014 Active Not Available [facility] 3 15:25:31 Shoulder strain 727763436 Active Not Available [facility] 3 15:25:31 Abscess of scrotum 64903846 Active Not Available [facility] 3 15:25:31 Tenosynovitis of wrist 776649270 Active Not Available [facility] 3 15:25:31 Chest wall pain 702815546 Active 2016 Not Available [facility] 3 15:25:31 Pain of multiple joints 38401208 Active 2016 Not Available [facility] 3 15:25:31 Aortic valve stenosis 58561955 Active 2023 Tunde Mcdaniel MD [address] [address], [place], [address] , [employer] [facility] [employer] [facility] 4 16:48:17 Essential hypertension 35327719 Active 2023 Tunde Mcdaniel MD [address], [place], [address] , [facility] [employer] [facility] 4 16:48:25 Confusional state 334829140 Active 2023 Tunde Mcdaniel MD [address], [place], [address] , [facility] 4 16:56:11 Seizure disorder 997172761 Active 2023 Tunde Mcdaniel MD [address], [place], [address] , [facility] 4 12:04:01 Hyperlipidemi a 23113359 Active 2023 Rachna Guzman CMA null, [facility] 4 15:05:45 Furuncle 508998099 Active 2023 Tunde Mcdaniel MD [address], [place], [address] , [facility] 4 10:45:04 Disorder of prostate 51069842 Active 2023 Tunde Mcdaniel MD [address], [place], [address] , [facility] 4 15:15:47 Colorectal cancer detected by DNA-based stool screening 346778343 Active 2023 Rachna Guzman CMA null, [facility] 4 12:28:58 Adenomatous polyp of colon 268186269 Active 2024 Tnude Mcdaniel MD [address], [place], [address] , [facility] 5 15:19:07 Problem Notes None recorded. Medical Equipment None Reported. Allergies Allergen ID Allergen Name Allergen Category Reaction Reaction Severity Criticality Documentation Date Start Date Code Code System Note Provider Name and Address Organization Details Recorded Time 20891 amoxicill in medicatio n rash mild unabletoasse ss 12/11/2023 723 RxNorm Tunde Mcdaniel MD [address], [place], [address], [facility] 4 10:44:57 06823 ampicilli n medicatio n Not available Not available Not available 03/23/20252023 733 RxNorm unrec ogniz ed react ion (text : Unkno wn, code: [id number]) (from [facility]) Not Available [place] - External Data Service - prod 5 [...] Updated DateTime 5 180.34 cm 29 kg/m2 76566.2 1 g 72 /min 97.2 [degF] 98 % 124/62 mm[Hg] Maida DHILLON [facility] [employer] 5 14:52:06 Social History None recorded. Functional [...] HAVE YOU BEEN HOSPITALIZED OR SEEN IN [facility] IN THE PAST YEAR ? N [...] MDCK, quadrivalent, PF 02/05/2020 completed Not Available [facility] 5 14:25:52 COVID-19, mRNA, LNP-S, PF, 30 mcg/0.3 mL dose 08/01/2020 completed Not Available [facility] 5 14:25:52 COVID-19, mRNA, LNP-S, PF, 30 mcg/0.3 mL dose 08/22/2020 completed Not Available [facility] 5 14:25:52 Past Encounters Encounter ID Performer Location Encounter Start Date Encounter Closed Date Diagnosis/Indication Diagnosis SNOMED-CT Code Diagnosis ICD10 Code Diagnosis IMO Codes Diagnosis Note [id number] Tunde Mcdaniel MD [facility] Internal Med [facility] [address] [facility] [address] [place] [address] 03/23/2025 14:24:54 03/23/2025 15:14:01 General examination of patient 930433819 Z00.00 301355 Essential hypertension 43716638 I10 Hyperlipidemia 92785377 E78.5 Aortic valve stenosis 60 786484 I35.0 Adenomatou s polyp of colon 153004549 D12.3 24946280 Disorder of prostate 302 70937 N42.9 Health Concerns Section Related Observation LastModified by Organization Detai ls LastModified Time None Recorded Concern Status LastModified by Organization Details LastModified Time None Recorded Payers Encounter Date Sequence Insurance Name Policy Number Policy Carrillo Covered Member ID Carrillo Member ID Guarantor Name 03/23/2025 1 [employer] (POS) [id number] Hodan Loving [id number] Bernard Loving Notes Date Note Type Note Provider Name and Address Organization Details Recorded Time 5 text/html Patient Name: Bernard Bowlingte Of Service: Friday ( 03.23.2025 ): 1970 [...] Systemic Symptoms:none Medication Reconciliation: from medication list. [id number]: Echocardiogram estimated ejection fraction greater than 70%. [...] the Office. Else referred to pharmacies. Surgical [id number] Lap Sigmoidectomy Preventative Testing: (X) Due (?) [...] the Office. Else referred to pharmacies. Surgical [id number] Lap Sigmoidectomy Preventative Testing: (X) Due (?) Optional( ) 01/14/2025 Colonoscopy ( 3 Years ) 01/15/2028(X) 03/18/2024 PSA 0.5 03/18/2025( ) 08/28/2019 Albumin 4.4 G/DL NPreventative Testing Discussed with Patient and Any Attendants Tunde Mcdaniel MD [address], [facility] [address], [place], [address], [email or web address] 03/23/2025 15:11:23
[2025-03-24 08:51] LABS: Hematocrit 44.2 % (42.0-52.0); Hemoglobin 15.6 g/dL (14.0-18.0); Immature Granulocyte Percent A 0.3 % (0-0.5); Lymphocytes Absolute Auto 2.27 K/mm3 (0.9-3.2); Mean Corpuscular HGB Conc 35.3 g/dl (32-36); Mean Corpuscular Hemoglobin 32.0 pg (26-34); Mean Corpuscular Volume 90.6 fl (80-100); Nucleated Red Blood Cells Absolute Auto 0.000 K/mm3 (0.0-0.012); Nucleated Red Blood Cells Perc 0.0 % (0.0-0.2); Platelet Count Result 223 k/mm3 (150-375); Red Blood Count 4.88 M/mm3 (4.6-6.20); White Blood Count 9.3 K/mm3 (4.5-10.0)
[2025-03-24 09:07] LABS: Alanine Aminotransferase 46 U/L (6-50); Albumin Level 4.5 g/dL (3.5-5.1); Alkaline Phosphatase 52 U/L (38-126); Anion Gap 9 mmol/L (4-12); Aspartate Amino Transferase 32 U/L (17-59); Bilirubin,Total 0.5 mg/dL (0.2-1.3); Blood Urea Nitrogen 12 mg/dL (9-20); Calcium 8.9 mg/dL (8.4-10.2); Carbon Dioxide 22 mmol/L (22-30); Chloride 105 mmol/L (98-107); Cholesterol 129 mg/dL (0-200); Estimated Glomerular Filt Rate > 60; Glucose 136 mg/dL (65-110); HDL Direct 53 mg/dL; Potassium 3.9 mmol/L (3.4-5.0); Sodium 136 mmol/L (137-145); Total Protein 7.3 g/dL (6.3-8.2); Triglycerides 105 mg/dL (<150)
[2025-03-24 09:38] LABS: Prostate Specific Antigen 0.4 ng/mL (< OR = 4.0)
== END 2025-03-24 07:33 | disposition home or self-care (01) ==
LOC: ANHLAB 07:35
PROVIDERS: PCP Internal Medicine; Visit Provider Internal Medicine
DX: E78.5 Hyperlipidemia, unspecified (principal); N42.9 Disorder of prostate, unspecified
CPT/HCPCS: 36415; 80053; 80061; 84153; 85025

== ENCOUNTER 2025-04-15 10:33 | Emergency (ER) | payer OTHER, SELFPAY ==
[2025-04-15 10:47] VITALS: BP 153/82; PULSE 107; RESP 17; TEMP 36.8; O2SAT 100
[2025-04-15 11:57] LABS: Influenza A QL RT-PCR Negative (Negative); Influenza B QL RT-PCR Negative (Negative); RSV RNA, RT-PCR Negative (Negative); SARS-CoV-2 RNA PCR Positive (Negative)
[2025-04-15] MEDS: SODIUM CHLORIDE 0.9% IV 1,000 ML 999 ML IV CONT (12:51)
[2025-04-15] MEDS: KETOROLAC 15 MG/ML VIAL (*BKC) IV PUSH (12:53)
[2025-04-15] MEDS: PROCHLORPERAZINE EDISYLATE 10 MG/2 ML VIAL IV PUSH (12:54)
[2025-04-15 12:58] VITALS: BP 140/80; PULSE 105; RESP 18; TEMP 36.9; O2SAT 98
--- NOTE | 2025-04-15 13:05 | ED_ITS ---
HPI - General Adult General Chief complaint: Upper Respiratory Infection Stated complaint: URI Time Seen by Provider: 04/15/25 12:05 History of Present Illness HPI narrative: Patient 54-year-old gentleman presents emergency department chief complaint of flu-like symptoms. Patient reports symptoms started this morning reports that he had his flu vaccine about a week ago reports that he does feels generally uncomfortable reports he with the hairs on his body her patient states that ab out a year ago he had meningitis and had a seizure Related Data Home Medications ?Medication ?Instructions ?Recorded ?Confirmed ?Last Taken ?Type aspirin 81 mg tablet,delayed 81 mg PO DAILY 07/22/23 0 01/14/25 01/13/25 History release rosuvastatin 10 mg tablet 10 mg PO HS 07/22/23 5 01/13/25 History nitroglycerin 0.4 mg sublingual 0.4 mg sublingual Q5M PRN chest 08/05/24 12/31/24 Unknown History tablet pain Allergies Allergy/AdvReac Type Severity Reaction Status Date / Time ampicillin Allergy Unknown Unknown Verified 01/14/25 09:59 Penicillins Allergy Unknown Unknown Verified 01/14/25 09:59 Review of Systems Review of Systems: A 10 system review of systems was completed on the patient and is negative except for what is stated in the HPI. Nursing and ancillary documentation was reviewed. 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 Aortic insufficiency with aortic stenosis Hypertension Systolic murmur Tobacco use Diverticulitis Family History Family History Father Family history of thyroid disease Mother Family history of diabetes mellitus in first degree relative Social History Social History Smoking packs per day: 2 Smoking cigarettes per day: 40.0 Years smoked: 20 Smoking pack-years: 40.00 Smoking status: Former smoker Tobacco type: cigarettes Smoking end date: 05/05/23 Alcohol intake: former Drinks per week: 2 Alcohol use details: Drinks shots on Tuesdays while playing darts Substance use: current Substance use type: marijuana Other substance usage details: rec use Last use: today Lack of Transportation: No Lack of Food: Never True Current Housing: I Have Housing Concerned About Future Housing: No Difficulty Paying Gas/Electric Bills: No Difficulty Paying for Meds: No Currently Unemployed: No Education: Bachelor's Degree Difficulty w/ Childcare or Family Care: No Living arrangements: with family Additional living arrangements comments: Gender identity (if verbalized by the patient): Male Spiritual care concerns: No Exam Narrative: GENERAL: Well-appearing, well-nourished, and in no acute distress. HEAD: Normocephalic, atraumatic. EYES: PERRLA and EOMI. ENT: Nares clear, no rhinorrhea or epistaxis. Mucous membranes moist. NECK: Supple. No nuchal rigidity CHEST: Clear to auscultation. No respiratory distress. HEART: Regular rate and rhythm. No murmur heard. Normal peripheral pulses. ABDOMEN: Soft, nontender, nondistended, normal active bowel sounds. EXTREMITIES: Normal range of motion. No edema. SKIN: Warm, dry, no rash. NEURO: No focal deficits. Alert and oriented x3. GCS 15 PSYCH: Normal mood and affect. Course Vital Signs Vital signs: Vital Signs Temperature 36.8 C 04/15/25 10:47 Pulse Rate 107 H 04/15/25 10:47 Respiratory Rate 17 04/15/25 10:47 Blood Pressure 153/82 H 04/15/25 10:47 Pulse Oximetry 100 04/15/25 10:47 Oxygen Delivery Room Air 04/15/25 10:47 Temperature 36.9 C 04/15/25 12:58 Pulse Rate 105 H 04/15/25 12:58 Respiratory Rate 18 04/15/25 12:58 Blood Pressure 140/80 04/15/25 12:58 Pulse Oximetry 98 04/15/25 12:58 Oxygen Delivery Room Air 04/15/25 10:47 MDM MDM Narrative Medical decision making narrative: Patient is positive for COVID. The patient is nontoxic not showing any signs of nuchal rigidity Differential Diagnosis Differential Diagnosis: COVID, upper respiratory infection, influenza, RSV, Lab Data Labs: Lab Results 04/15/25 Range/Units 11:14 Influenza A (RT-PCR) Negative (Negative) Influenza B (RT-PCR) Negative (Negative) RSV (RT-PCR) Negative (Negative) SARS-CoV-2 RNA (RT-PCR) Positive A (Negative) Discharge Plan Discharge Clinical Impression: COVID-19, Acute viral syndrome Patient Disposition: Home Condition: Stable Instructions: Antibiotic Form, Viral Syndrome (ED), COVID-19 (Coronavirus Disease 2019) (ED) Patient Language: Bahamian Prescriptions: New Paxlovid 300 mg (150 mg x 2)-100 mg tablets,dose pack See Rx Instructions .ROUTE .COMPLEX Qty: 30 0RF Rx Instructions: take TWO 150 mg tablets of nirmatrelvir with ONE 100 mg tablet of ritonavir twice daily for 5 days ondansetron 4 mg tablet,disintegrating 4 mg PO Q8H PRN (Reason: nausea and vomiting) Qty: 10 0RF No Action nitroglycerin 0.4 mg tablet, sublingual 0.4 mg sublingual Q5M PRN (Reason: chest pain) Rx Instructions: do not exceed 3 doses per episode levetiracetam [Keppra XR] 500 mg tablet extended release 24 hr 2,000 mg PO DAILY Qty: 360 4RF aspirin 81 mg tablet,delayed release (DR/EC) 81 mg PO DAILY rosuvastatin 10 mg tablet 10 mg PO HS losartan 25 mg Tablet 50 mg PO DAILY Qty: 30 0RF Follow-up/Referrals: Jonas,Tunde Bosch MD [Primary Care Provider] Time of Disposition: 13:11
[2025-04-15 14:19] VITALS: BP 137/74; PULSE 98; RESP 16; TEMP 36.8; O2SAT 98
== END 2025-04-15 14:22 | disposition home or self-care (01) ==
PROVIDERS: Emergency Medicine; Emergency Provider Emergency Medicine; PCP Internal Medicine
DX: U07.1 COVID-19 (principal); I35.2 Nonrheumatic aortic (valve) stenosis with insufficiency; I10 Essential (primary) hypertension; G40.219 Localization-related (focal) (partial) symptomatic epilepsy and epileptic syndromes with complex partial seizures, intractable, without status epilepticus; G47.33 Obstructive sleep apnea (adult) (pediatric); Z87.891 Personal history of nicotine dependence
CPT/HCPCS: 87637; 96361; 96374; 96375; 99284; J0780; J1200; J1885; J7030